=== PATIENT | female | born 1985 | race African-American/Black ===

== ENCOUNTER 2016-04-07 13:01 | Emergency (ER) | payer SELFPAY ==
--- NOTE | 2016-04-07 14:30 | ER Document Report ---
[id number] Ambulatory Information source: Patient Notes: 30 yr old female presents with complaitns of depression and suicidal ideation . pt notes that family member 1 month ago, since then she has been even more depressed. pt notes she wanted to take her zoloft today in a suicide attempt. pt denies any previous hx of suicidal ideations. TRAVEL OUTSIDE OF THE [place] IN LAST 30 DAYS: No - HPI Onset: Other Onset/Duration: Persistent Quality of pain: No pain Severity: Mild Pain Level: Denies Associated symptoms: None Exacerbated by: Denies Relieved by: Denies Similar symptoms previously: Yes Recently seen / treated by doctor: No - Related Data Allergies/Adverse Reactions: No Known Allergies Allergy (Verified 04/30/15 11:28) Past Medical History - Social History Smoking Status: Never Smoker Cigarette use (# per day): No Chew tobacco use (# tins/day): No Smoking Education Provided: No Family History: CVA, DM, Hyperlipidemia, Hypertension Patient has suicidal ideation: Yes Patient has homicidal ideation: No Renal/ Medical History: Reports: Hx Ovarian Cysts Past Surgical History: Reports: Hx Abdominal Surgery - Bowel Obstruction, Hx Gynecologic Surgery - Removal of right ovary and a tumor in 2009. - Immunizations Hx Diphtheria, Pertussis, Tetanus Vaccination: Yes Review of Systems - Review of Systems Notes: REVIEW OF SYSTEMS: CONSTITUTIONAL : Denies fever, chills, or sweats. Denies recent illness. EENT: Denies eye, ear, throat, or mouth pain or symptoms. Denies nasal or sinus congestion or discharge. Denies throat, tongue, or mouth swelling or difficulty swallowing. CARDIOVASCULAR: Denies chest pain. Denies palpitations or racing or irregular heart beat. Denies ankle edema. RESPIRATORY: Denies cough, cold, or chest congestion. Denies shortness of breath, difficulty breathing, or wheezing. GASTROINTESTINAL: Denies abdominal pain or distention. Denies nausea, vomiting , or diarrhea. Denies blood in vomitus, stools, or per rectum. Denies black, tarry stools. Denies constipation. GENITOURINARY: Denies difficulty urinating, painful urination, burning, frequency, blood in urine, or discharge. FEMALE GENITOURINARY: Denies vaginal bleeding, heavy or abnormal periods, irregular periods. Denies vaginal discharge or odor. MUSCULOSKELETAL: Denies back or neck pain or stiffness. Denies joint pain or swelling. SKIN: Denies rash, lesions or sores. HEMATOLOGIC : Denies easy bruising or bleeding. LYMPHATIC: Denies swollen, enlarged glands. NEUROLOGICAL: Denies confusion or altered mental status. Denies passing out or loss of consciousness. Denies dizziness or lightheadedness. Denies headache. Denies weakness or paralysis or loss of use of either side. Denies problems with gait or speech. Denies sensory loss, numbness, or tingling. Denies seizures. PSYCHIATRIC: admits t odepression ALL OTHER SYSTEMS REVIEWED AND NEGATIVE. Dictation was performed using [employer] voice recognition software PHYSICAL EXAMINATION: GENERAL: Well-appearing, well-nourished and in no acute distress. HEAD: Atraumatic, normocephalic. EYES: Pupils equal round and reactive to light, extraocular movements intact, conjunctiva are normal. ENT: Nares patent, oropharynx clear without exudates. Moist mucous membranes. NECK: Normal range of motion, supple without lymphadenopathy LUNGS: Breath sounds clear to auscultation bilaterally and equal. No wheezes rales or rhonchi. HEART: Regular rate and rhythm without murmurs ABDOMEN: Soft, nontender, nondistended abdomen. No guarding, no rebound. No masses appreciated. Female : deferred Musculoskeletal: Normal range of motion, no pitting or edema. No cyanosis. NEUROLOGICAL: Cranial nerves grossly intact. Normal speech, normal gait. Normal sensory, motor exams PSYCH: depressed tearful SKIN: Warm, Dry, normal turgor, no rashes or lesions noted. Physical Exam - Vital signs Vitals: Temp Pulse Resp BP Pulse Ox 98.5 F 72 14 118/86 H 99 04/07/16 13:15 04/07/16 13:15 04/07/16 13:15 04/07/16 13:15 04/07/16 13:15 Course - Re-evaluation Re-evalutation: 04/07/16 15:41 pt is medically stable but requires a mental health evaluation and care. pt is in no distress at this time and cleared medically. - Vital Signs Vital signs: Temp Pulse Resp BP Pulse Ox 98.5 F 72 14 118/86 H 99 04/07/16 13:15 04/07/16 13:15 04/07/16 13:15 04/07/16 13:15 04/07/16 13:15 - Laboratory Result Diagrams: 04/07/16 14:30 04/07/16 14:30 Laboratory results interpreted by me: 04/07/16 04/07/16 04/07/16 14:30 14:30 14:30 Hgb 11.5 L Hct 34.7 L MCH 26.9 L RDW 15.7 H Seg Neutrophils % 40.8 L Lymphocytes % 45.6 H Urine Ketones TRACE H Salicylates < 1.0 L Acetaminophen < 10 L - EKG Interpretation by Mi EKG shows normal: Sinus rhythm, [place], Intervals, QRS Complexes Discharge - Discharge Clinical Impression: Suicidal ideation Depression Qualifiers: Depression Type: unspecified Qualified Code(s): F32.9 - Major depressive disorder, single episode, unspecified Condition: Stable Disposition: PSYCH HOSP/UNIT
[2016-04-07 14:42] LABS: ABSOLUTE EOSINOPHILS # (AUTO) 0.1 10^3/uL (0.0-0.6); ABSOLUTE LYMPHOCYTES (AUTO) 2.2 10^3/uL (0.5-4.7); ABSOLUTE MONOCYTES (AUTO) 0.6 10^3/uL (0.1-1.4); EOSINOPHILS % (AUTO) 1.1 % (0-6); HEMATOCRIT 34.7 % (36.0-47.0); HEMOGLOBIN 11.5 g/dL (12.0-15.5); HGB HCT DIFFERENCE -0.2; LYMPHOCYTES % (AUTO) 45.6 % (13-45); MEAN CORPUSCULAR HEMOGLOBIN 26.9 pg (27.0-33.4); MEAN CORPUSCULAR HGB CONC 33.2 g/dL (32.0-36.0); MEAN CORPUSCULAR VOLUME 81 fl (80-97); MONOCYTES % (AUTO) 11.5 % (3-13); RED BLOOD COUNT 4.27 10^6/uL (3.72-5.28); RED CELL DISTRIBUTION WIDTH 15.7 % (11.5-14.0); SEGMENTED NEUTROPHILS % (AUTO) 40.8 % (42-78); WHITE BLOOD COUNT 4.9 10^3/uL (4.0-10.5)
--- NOTE | 2016-04-07 14:50 | PSYCHOLOGICAL NOTE ---
Psych Note - Psych Note Psych Note: Patient presented to [facility] ED with concerns of suicidal ideation. Patient states that she has been having depression for many years. She continued disclosed that she did receive therapeutic services in [place] however has never taken any medication. She continued to state that her depression started with start of all of her medical issues. She states that she has endometriosis has had multiple surgeries and is unable to have children. She continued disclosed that she is very embarrassed name and when she was worried upon arrival to the ED she was embarrassed by her weight because she's lost over 20 pounds. She is experiencing difficulty in sleeping she is not eating and increased irritability. Patient disclosed that her grandmother last month and that she was her "everything" pretty much "like her mother." She stated that she became very scared when people came up to her after the service and stated they were proud of her for not crying. She continue disclosed that she thought she was crying. Patient states that she "doesn't care if she doesn't wake up" and that she is discharging to think that her grandmother was "the jason one" because she is no longer here. She states that when she is in pain and feels much worse she doesn 't understand why she has to deal with the pain on top of everything else. Patient sister, Mark, disclosed concern for her sister stating that she has been very irritable and snapping at people over nothing. She states this is not like her sister. She continue disclosed that she wants to clinician to know everything so her sister can get the best possible care stating that the patient does "smoke every day;" clinician confirmed that meant patient smoked THC. She continue disclose concern that her sister does have to take pain medication because of all of her medical diagnosis and is hoping that she does not get any additional addictive medications because while her sister is not showing signs of abuse she does sometimes see her sister take more than she should because some which pain that she is in. She states that this is not often is only during her monthly cycle. Patient is alert and orientated to person place time and circumstance. Mood is dysphoric with tearful, flat affect. Patient endorses suicidal ideation denies homicidal ideation. Patient denies auditory and visual hallucinations; no delusions are noted. Thought process is logical organized and linear. Conversational speech was within normal rate tone and prosody. Eye contact was well maintained. Intellectual abilities appear to be within average range. Attention and concentration are good. Insight, judgment, impulse control are good. 293.83 (F06.32) Depressive Disorder Due To Another Medical Condition; With Major Depressive-like Episode V 62.82 (Z 60.4) Uncomplicated Bereavement Impression\\plan: Patient is recommended for psychiatric hold. Patient is demonstrating extreme despondent thought processes. Patient's previous support system has been lost due to the passing of her grandmother. Patient's insight judgment impulse control are good demonstrated by her seeking out assistance, patient is showing true suicidal ideation stating that she "doesn't care if she doesn't wake up" and thinks that her grandmother is "jason" because she is gone and doesn't have to deal with anything anymore. Patient's medical issues contribute to the patient's depression and the patient's bereavement as complicated it. At this time the patient is in agreement with staying overnight for psychiatric old to ensure mental health stability and to follow up with therapeutic services. Dr. Schulte was consulted on the care and management of this patient. Attending physician is in agreement with recommendations and disposition.
[2016-04-07 14:53] LABS: APPEARANCE,URINE CLEAR; BILIRUBIN,URINE NEGATIVE (NEGATIVE); GLUCOSE, URINE NEGATIVE (NEGATIVE); KETONES,URINE TRACE mg/dL (NEGATIVE); LEUKOCYTE ESTERASE,URINE NEGATIVE (NEGATIVE); NITRITE,URINE NEGATIVE (NEGATIVE); PROTEIN,URINE NEGATIVE (NEGATIVE); UROBILINOGEN,URINE NEGATIVE mg/dL (<2.0)
[2016-04-07 15:00] LABS: ALANINE AMINOTRANSFERASE 21 U/L (9-52); ALCOHOL < 10 mg/dL (NONE DETECTED); ALKALINE PHOSPHATASE 55 U/L (38-126); ANION GAP 13 (5-19); ASPARTATE AMINO TRANSFERASE 22 U/L (14-36); BILIRUBIN,TOTAL 0.5 mg/dL (0.2-1.3); BLOOD UREA NITROGEN 7 mg/dL (7-20); CALCIUM 9.7 mg/dL (8.4-10.2); CARBON DIOXIDE 24 mmol/L (22-30); CHLORIDE 105 mmol/L (98-107); CREATININE RESULT 0.68 mg/dL (0.52-1.25); GLUCOSE 86 mg/dL (75-110); POTASSIUM 4.3 mmol/L (3.6-5.0); SODIUM 141.8 mmol/L (137-145); TOTAL PROTEIN 7.8 g/dL (6.3-8.2)
[2016-04-07 15:04] LABS: URINE BARBITURATES SCREEN NEGATIVE; URINE METHADONE SCREEN NEGATIVE; URINE OPIATES LOW UNCONFIRMED POSITIVE; URINE PHENCYCLIDINE SCREEN NEGATIVE
--- NOTE | 2016-04-07 21:42 | EKG REPORT ---
SEVERITY:- OTHERWISE NORMAL ECG - SINUS ARRHYTHMIA, RATE 41-64 : Confirmed by: Anup Bullard 07-Apr-2016 21:42:03
[2016-04-07] MEDS ORDERED: BUSPIRONE HCL 10 MG TABLET PO SCH (22:00)
[2016-04-07] MEDS ORDERED: CITALOPRAM HYDROBROMIDE 20 MG TABLET PO SCH (22:00)
[2016-04-08] MEDS ORDERED: DIPHENHYDRAMINE HCL 25 MG CAPSULE ONE (05:32)
[2016-04-08] MEDS ORDERED: DIPHENHYDRAMINE HCL 50 MG CAPSULE PO ONE (06:27)
[2016-04-08 08:29] VITALS: BP 128/66
--- NOTE | 2016-04-09 17:30 | PSYCHOLOGICAL NOTE ---
Psych Note - Psych Note Psych Note: Clinician conducted check in with patient Patient presented to [facility] ED with concerns of suicidal ideation. Clinician conducted check in with patient patient states that she is feeling better and no longer is having suicidal ideation. Patient agrees to attend outpatient services. Patient discussed surjit with for safety knowing that her mother and sister are safety resources. Patient will be receiving outpatient services. Patient is alert and orientated to person place time and circumstance. Mood is euthymic with congruent affect. Patient denies suicidal and homicidal ideation. Patient denies auditory and visual hallucinations; no delusions are noted. Thought process is logical organized and linear. Conversational speech was within normal rate tone and prosody. Eye contact was well maintained. Intellectual abilities appear to be within average range. Attention and concentration are good. Insight, judgment, impulse control are good. 293.83 (F06.32) Depressive Disorder Due To Another Medical Condition; With Major Depressive-like Episode V 62.82 (Z 60.4) Uncomplicated Bereavement Impression\plan: Patient is psychiatrically cleared for discharge; patient denies current suicidal ideation. Patient lives with her sister and mother both have contracted to be patient's safety resource to ensure a she follows through with outpatient services. Patient is psychiatrically cleared for discharge. Dr. Schulte was consulted on the care and management of this patient. Attending physician is in agreement with recommendations and disposition.
== END 2016-04-08 08:05 ==
LOC: ER 13:01
DX: F32.9 Major depressive disorder, single episode, unspecified (principal); R45.851 Suicidal ideations; F06.32 Mood disorder due to known physiological condition with major depressive-like episode; Z60.4 Social exclusion and rejection
CPT/HCPCS: 36415; 80053; 80307; 81001; 84703; 85025; 93005; 93010; 99285

== ENCOUNTER 2016-04-13 12:46 | Emergency (ER) | payer SELFPAY ==
[2016-04-13 12:54] VITALS: BP 115/70
--- NOTE | 2016-04-13 13:32 | ER Document Report ---
ED Medical Screen (RME) - General Stated Complaint: MED REFILL Mode of Arrival: Ambulatory Information source: Patient Notes: Patient ran out of BuSpar and Celexa last night. Patient is requesting a refill. I have greeted and performed a rapid initial assessment of this patient. A comprehensive ED assessment and evaluation of the patient, analysis of test results and completion of the medical decision making process will be conducted by additional ED providers. TRAVEL OUTSIDE OF THE [place] IN LAST 30 DAYS: No - Related Data Allergies/Adverse Reactions: No Known Allergies Allergy (Verified 04/13/16 13:27) Past Medical History Renal/ Medical History: Reports: Hx Ovarian Cysts Past Surgical History: Reports: Hx Abdominal Surgery - Bowel Obstruction, Hx Gynecologic Surgery - Removal of right ovary and a tumor in 2009. - Immunizations Hx Diphtheria, Pertussis, Tetanus Vaccination: Yes Physical Exam - Vital signs Vitals: Temp Pulse Resp BP Pulse Ox 98.1 F 58 L 14 115/70 98 04/13/16 12:53 04/13/16 12:53 04/13/16 12:53 04/13/16 12:53 04/13/16 12:53 - General General appearance: Appears well, Alert In distress: None Course - Vital Signs Vital signs: Temp Pulse Resp BP Pulse Ox 98.1 F 58 L 14 115/70 98 04/13/16 12:53 04/13/16 12:53 04/13/16 12:53 04/13/16 12:53 04/13/16 12:53
--- NOTE | 2016-04-13 14:15 | ER Document Report ---
HPI - HPI Patient complains to provider of: medication refill Onset: This morning Onset/Duration: Sudden Quality of pain: No pain Pain Level: 0 Context: She presents to the emergency department with request for medication refill. Patient reports she was recently discharged from this hospital after suicide watch. She was prescribed BuSpar and Celexa. She was instructed to follow up with [facility]. She reports she did follow-up. [facility] did not have a provider that has evaluated her yet and has not prescribed her medications. She reports she has a class next Tuesday and then a provider will see her next . She is here for medication refill. Associated Symptoms: None Exacerbated by: Denies Relieved by: Denies Similar symptoms previously: Yes Recently seen / treated by doctor: Yes - REPRODUCTIVE LMP: 03/08/16 Reproductive: DENIES: : - DERM Skin Color: Normal Past Medical History - General Information source: Patient Last Menstrual Period: 03/08/16 - Social History Smoking Status: Current Every Day Smoker Cigarette use (# per day): Yes Frequency of alcohol use: None Drug Abuse: None Family History: CVA, DM, Hyperlipidemia, Hypertension Patient has suicidal ideation: No Patient has homicidal ideation: No Renal/ Medical History: Reports: Hx Ovarian Cysts. 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 - Immunizations Hx Diphtheria, Pertussis, Tetanus Vaccination: Yes Vertical Provider Document - CONSTITUTIONAL Agree With Documented VS: Yes Exam Limitations: No Limitations General Appearance: WD/WN, No Apparent Distress - calm denies SI/HI - INFECTION CONTROL TRAVEL OUTSIDE OF THE [place] IN LAST 30 DAYS: No - HEENT HEENT: Atraumatic, Normocephalic - NECK Neck: Normal Inspection, Supple - RESPIRATORY Respiratory: Breath Sounds Normal O2 Sat by Pulse Oximetry: 98 - CARDIOVASCULAR Cardiovascular: Regular Rate - MUSCULOSKELETAL/EXTREMETIES Musculoskeletal/Extremeties: EILEEN ROSENBERG - NEURO Level of Consciousness: Awake, Alert, Appropriate - DERM Integumentary: Warm, Dry Course - Re-evaluation Re-evalutation: 04/13/16 14:18 I contacted [facility] here and discuss the situation with Keyonna. She is contacting [facility] to confirm patient's story. 04/13/16 14:28 keyonna returned call, confirms process. medication refill completed - Vital Signs Vital signs: Temp Pulse Resp BP Pulse Ox 98.1 F 58 L 14 115/70 98 04/13/16 12:53 04/13/16 12:53 04/13/16 12:53 04/13/16 12:53 04/13/16 12:53 Discharge - Discharge Clinical Impression: Medication refill Condition: Stable Disposition: HOME, SELF-CARE Instructions: Anxiety ([facility]) Additional Instructions: *You have been evaluated for medication refill *Take medication as prescribed *Follow up with mental health as scheduled *Return to ED for worsening condition, changes, needs Prescriptions: Buspirone HCl [Buspar 10 mg Tablet] 10 mg PO QHS #5 tablet Citalopram Hydrobromide [Celexa 20 mg Tablet] 20 mg PO QHS #5 tablet
== END 2016-04-13 14:30 | disposition home or self-care (01) ==
LOC: ER 12:46
DX: Z76.0 Encounter for issue of repeat prescription (principal); F41.9 Anxiety disorder, unspecified; F17.210 Nicotine dependence, cigarettes, uncomplicated
CPT/HCPCS: 99281

== ENCOUNTER 2016-05-14 17:37 | Emergency (ER) | payer SELFPAY ==
--- NOTE | 2016-05-14 18:19 | ER Document Report ---
ED Medical Screen (RME) - General Stated Complaint: EAR PAIN Notes: Patient complains of left ear pain for the last 4-5 days. No nasal congestion. No fever. I have greeted and performed a rapid initial assessment of this patient. A comprehensive ED assessment and evaluation of the patient, analysis of test results and completion of the medical decision making process will be conducted by additional ED providers. TRAVEL OUTSIDE OF THE [place] IN LAST 30 DAYS: No - Related Data Allergies/Adverse Reactions: No Known Allergies Allergy (Verified 04/13/16 13:27) Past Medical History - Social History Chew tobacco use (# tins/day): No Frequency of alcohol use: None Drug Abuse: None Renal/ Medical History: Reports: Hx Ovarian Cysts. 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 - Immunizations Hx Diphtheria, Pertussis, Tetanus Vaccination: Yes Physical Exam - Vital signs Vitals: Temp Pulse Resp BP Pulse Ox 98.3 F 85 18 122/76 98 05/14/16 18:12 05/14/16 18:12 05/14/16 18:12 05/14/16 18:12 05/14/16 18:12 - Respiratory Respiratory status: No respiratory distress Breath sounds: Normal Course - Vital Signs Vital signs: Temp Pulse Resp BP Pulse Ox 98.3 F 85 18 122/76 98 05/14/16 18:12 05/14/16 18:12 05/14/16 18:12 05/14/16 18:12 05/14/16 18:12
--- NOTE | 2016-05-14 20:21 | ER Document Report ---
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 She heated a needle and popped it and now has a small ulceration. The pain radiates into the left side of her face. There is no fever. No history of MRSA. Associated Symptoms: None Exacerbated by: Denies Relieved by: Denies Similar symptoms previously: No Recently seen / treated by doctor: No - ROS ROS below otherwise negative: Yes Systems Reviewed and Negative: Yes All other systems reviewed and negative - REPRODUCTIVE Reproductive: DENIES: : - DERM Skin Color: Normal Past Medical History - General Information source: Patient - Social History Smoking Status: Current Some Day Smoker Chew tobacco use (# tins/day): No Frequency of alcohol use: None Drug Abuse: None Family History: CVA, DM, Hyperlipidemia, Hypertension - Medical History Medical History: Negative Renal/ Medical History: Reports: Hx Ovarian Cysts. 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 - Immunizations Hx Diphtheria, Pertussis, Tetanus Vaccination: Yes Vertical Provider Document - CONSTITUTIONAL Agree With Documented VS: Yes Exam Limitations: No Limitations - INFECTION CONTROL TRAVEL OUTSIDE OF THE [place] IN LAST 30 DAYS: No - HEENT HEENT: Normocephalic, PERRLA. negative: Conjuctival Injection Notes: left external ear with 2mm crusted lesion on the cymba cavity - NECK Neck: Supple. negative: Lymphadenopathy-Left, Lymphadenopathy-Right - RESPIRATORY O2 Sat by Pulse Oximetry: 98 - NEURO Level of Consciousness: Awake, Alert - DERM Integumentary: Warm, Dry Course - Vital Signs Vital signs: Temp Pulse Resp BP Pulse Ox 98.3 F 85 18 122/76 98 05/14/16 18:12 05/14/16 18:12 05/14/16 18:12 05/14/16 18:12 05/14/16 18:12 Discharge - Discharge Clinical Impression: Infection of left external ear Condition: Good Disposition: HOME, SELF-CARE Instructions: Infections ([facility]), Bactroban Ointment ([facility]), Trimethoprim-Sulfa ( [facility]) Additional Instructions: bactroban three times per day small amount the the left external ear to er if worse warm compress motrin for pain see high pressure cleaner if persists Please complete the patient satisfaction survey if you get one, and return it.. If you do not receive a survey, then you can go to the [facility] website, [email or web address] and place your comments about your very good care. Thank you very much. It was a pleasure being your medical provider today. Prescriptions: Ibuprofen [Motrin 600 mg Tablet] 600 mg PO Q8HP PRN #30 tablet PRN Reason: Sulfamethoxazole/Trimethoprim [Sulfamethoxazole-Tmp Ds Tablet] 1 each PO BID # 14 tablet Referrals: SHEY GUZMAN, [ACTIVE STAFF] - Follow up as needed
[2016-05-14] MEDS ORDERED: MUPIROCIN 2% OINTMENT 22 GM TP ONE (20:26)
[2016-05-14] MEDS ORDERED: SULFAMETHOXAZOLE/TRIMETHOPRIM 800-160 MG TABLET PO ONE (20:27)
[2016-05-14] MEDS ORDERED: IBUPROFEN 800 MG TABLET PO ONE (20:28)
[2016-05-14 21:05] VITALS: BP 130/74
== END 2016-05-14 21:02 | disposition home or self-care (01) ==
LOC: ER 17:37
DX: L98.499 Non-pressure chronic ulcer of skin of other sites with unspecified severity (principal); F17.200 Nicotine dependence, unspecified, uncomplicated; R51 Headache
CPT/HCPCS: 99282; J3490

== ENCOUNTER 2017-03-26 08:53 | Emergency (ER) | payer BC ==
[2017-03-26] MEDS ORDERED: ONDANSETRON 4 MG TAB.RAPDIS PO ONE (09:06)
--- NOTE | 2017-03-26 09:48 | ER Document Report ---
HPI - HPI Pain Level: 3 Notes: Patient is a 31-year-old female with no significant past medical history who presents to the ED complaining of nasal congestion/discharge, sore throat, dry nonproductive cough 2-3 days. Patient states that she does have some associated body aches without any fever. She has been taking some over-the- counter meds that do seem to help at times. Patient states that she is still eating and drinking without any difficulties. She is urinating normally and having normal bowel movements. Patient is ambulatory without any chest pains or dyspnea on exertion. No other concerns or complaints. Denies any drug allergies. Patient does admit to smoking but denies IV drug use. Denies any headache, fever, neck pain, chest pain, palpitations, syncope, shortness of breath, wheeze, dyspnea, abdominal pain, nausea/vomiting/diarrhea, urinary retention, dysuria, hematuria, or rash. - ROS Systems Reviewed and Negative: Yes All other systems reviewed and negative - CONSTITUTIONAL Constitutional: REPORTS: Chills - CARDIOVASCULAR Cardiovascular: REPORTS: Chest pain - RESPIRATORY Respiratory: REPORTS: Trouble Breathing, Coughing - REPRODUCTIVE Reproductive: DENIES: : Past Medical History - Social History Smoking Status: Current Some Day Smoker Chew tobacco use (# tins/day): No Frequency of alcohol use: None Family History: CVA, DM, Hyperlipidemia, Hypertension Patient has suicidal ideation: No Patient has homicidal ideation: No Renal/ Medical History: Reports: Hx Ovarian Cysts. 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 - Immunizations Hx Diphtheria, Pertussis, Tetanus Vaccination: Yes Vertical Provider Document - CONSTITUTIONAL Agree With Documented VS: Yes Notes: PHYSICAL EXAMINATION: GENERAL: Well-appearing, well-nourished and in no acute distress. A&Ox4. Answers questions appropriately. HEAD: Atraumatic, normocephalic. EYES: Pupils equal round and reactive to light, extraocular movements intact, sclera anicteric, conjunctiva are normal. ENT: EAC clear b/l. TM's intact b/l without erythema, fluid, or perforation. Nares patent and with clear discharge. oropharynx mild erythema without exudates. 1+ tonsilar hypertrophy with mild erythema no exudate. No palatine shift. Uvula midline. No tongue protrusion. No drooling, hoarseness, or airway compromise. Moist mucous membranes. No sinus tenderness. NECK: Normal range of motion, supple without lymphadenopathy. No rigidity/ meningismus. LUNGS: Breath sounds clear to auscultation bilaterally and equal. No wheezes rales or rhonchi. No retractions. HEART: Regular rate and rhythm without murmurs, rubs, gallops. ABDOMEN: Soft, nontender, nondistended abdomen. No guarding, no rebound. No masses appreciated. Normal bowel sounds present. No CVA tenderness bilaterally. No hepatosplenomegaly. NEUROLOGICAL: Normal speech, normal gait. Normal sensory, motor exams PSYCH: Normal mood, normal affect. SKIN: Warm, Dry, normal turgor, no rashes or lesions noted. - INFECTION CONTROL TRAVEL OUTSIDE OF THE U.S. IN LAST 30 DAYS: No - RESPIRATORY O2 Sat by Pulse Oximetry: 100 Course - Re-evaluation Re-evalutation: 03/26/17 11:19 Patient is an afebrile, well-hydrated, 31-year-old female who presents to the ED with acute URI, suspect viral. Patient still presents as an influenza pt even though there is a negative rapid influenza test. Reviewed risks/benefits of tamiflu and pt declined at this time. Rapid strep was negative with culture pending. No other labs or imaging warranted at this time based on H&P. Patient is actually 100% on room air and lungs are clear to auscultation bilaterally. She has no significant cardiopulmonary history. Low risk factors otherwise for high risk flu. Low suspicion for any meningitis, sepsis, peritonsillar/pharyngeal abscess, respiratory compromise, Jorden's, or other emergent systemic condition at this time. Patient is aware this condition can change from initial presentation and she needs to monitor symptoms closely. Conservative measures otherwise for symptoms. Recheck with your PCM in 3-5 days. Return to the ED with any worsening/concerning symptoms otherwise as reviewed in discharge. Patient is in agreement. - Vital Signs Vital signs: Temp Pulse Resp BP Pulse Ox 98.0 F 77 16 110/59 L 100 03/26/17 09:11 03/26/17 09:11 03/26/17 09:11 03/26/17 09:11 03/26/17 09:11 Discharge - Discharge Clinical Impression: Acute URI Condition: Stable Disposition: HOME, SELF-CARE Instructions: Upper Respiratory Illness ([facility]) Additional Instructions: Maintain adequate fluid intake Take meds as directed tylenol/ibuprofen as needed over the counter cold medication as needed for symptoms Humidified air may help F/u: with your PCM in 3-5 days for a recheck Return to the ED with any fever, worsening pain, chest pain, palpitations, syncope, worsening MCMANUS, neck pain/stiffness, shortness of breath, wheezing, drooling, trouble swallowing/breathing, abdominal pain, n/v/d, rash, or worsening/concerning symptoms otherwise. Forms: Return to Work Referrals: [facility] [Provider Group] - Follow up as needed [facility] [Provider Group] - Follow up as needed
[2017-03-26 10:50] LABS: A TYPE INFLUENZA AG NEGATIVE (NEGATIVE); B INFLUENZA AG NEGATIVE (NEGATIVE)
[2017-03-26 11:30] VITALS: BP 105/65
== END 2017-03-26 11:31 | disposition home or self-care (01) ==
LOC: ER 08:53
DX: J06.9 Acute upper respiratory infection, unspecified (principal); R09.81 Nasal congestion; R09.89 Other specified symptoms and signs involving the circulatory and respiratory systems; J02.9 Acute pharyngitis, unspecified; R05 Cough; F17.200 Nicotine dependence, unspecified, uncomplicated
CPT/HCPCS: 87070; 87804; 87880; 99283

== ENCOUNTER 2018-03-16 00:22 | Emergency (ER) | payer SELFPAY ==
--- NOTE | 2018-03-16 02:48 | ER Document Report ---
ED GI/ - General Chief Complaint: Vaginal Bleeding Stated Complaint: VOMITING Time Seen by Provider: 03/16/18 02:48 Mode of Arrival: Ambulatory Information source: Patient Notes: Patient is a 32-year-old female with a past medical history of endometriosis who presents with abdominal pain. Patient reports 1 month of continuous vaginal bleeding but denies vaginal discharge. Does not currently take oral contraceptives or any other hormone replacement. Onset: One month ago Provocation: Movement Quality: Cramping Radiation: None Severity: Moderate to severe Timing: Constant TRAVEL OUTSIDE OF THE [place] IN LAST 30 DAYS: No - HPI Sexual history: Active Associated symptoms: None Similar symptoms previously: No Recently seen / treated by doctor: No - Related Data Allergies/Adverse Reactions: cinnamon Allergy (Verified 03/26/17 08:59) Past Medical History - General Information source: Patient - Social History Smoking Status: Never Smoker Chew tobacco use (# tins/day): No Frequency of alcohol use: None Drug Abuse: None Lives with: Friend Family History: CVA, DM, Hyperlipidemia, Hypertension Patient has suicidal ideation: No Patient has homicidal ideation: No - Past Medical History Cardiac Medical History: Reports: None Pulmonary Medical History: Reports: None EENT Medical History: Reports: None Neurological Medical History: Reports: None Endocrine Medical History: Reports: None Renal/ Medical History: Reports: Hx Ovarian Cysts, Other. Denies: Hx Peritoneal Dialysis Malignancy Medical History: Reports: None GI Medical History: Reports: None Musculoskeletal Medical History: Reports None Skin Medical History: Reports None Psychiatric Medical History: Reports: Hx Anxiety Traumatic Medical History: Reports: None Infectious Medical History: Reports: None Past Surgical History: Reports: Hx Abdominal Surgery - Bowel Obstruction, Hx Gynecologic Surgery - Removal of right ovary and a tumor in 2009. - Immunizations Hx Diphtheria, Pertussis, Tetanus Vaccination: Yes Review of Systems - Review of Systems Notes: REVIEW OF SYSTEMS: CONSTITUTIONAL : Denies fever, chills, or sweats. Denies recent illness. EENT: Denies eye, ear, throat, or mouth pain or symptoms. Denies nasal or sinus congestion. CARDIOVASCULAR: Denies chest pain. RESPIRATORY: Denies cough, cold, or chest congestion. Denies shortness of breath, difficulty breathing, or wheezing. GASTROINTESTINAL: Denies abdominal pain. Denies nausea, vomiting, or diarrhea. Denies constipation. Last BM: GENITOURINARY: Denies difficulty urinating, painful urination, burning, frequency, or blood in urine. FEMALE GENITOURINARY: Denies vaginal discharge. Currently on her menstrual cycle. MUSCULOSKELETAL: Denies neck or back pain or joint pain or swelling. SKIN: Denies rash or skin lesions. HEMATOLOGIC : Denies easy bruising or bleeding. LYMPHATIC: Denies swollen, enlarged glands. NEUROLOGICAL: Denies altered mental status or loss of consciousness. Denies headache. Denies weakness or paralysis or loss of use of either side. Denies problems with gait or speech. Denies sensory or motor loss. PSYCHIATRIC: Denies anxiety or stress or depression. ALL OTHER SYSTEMS REVIEWED AND NEGATIVE. -: Yes All other systems reviewed and negative Physical Exam - Vital signs Vitals: Temp Pulse Resp BP Pulse Ox 98.2 F 71 18 112/88 H 100 03/16/18 01:11 03/16/18 01:11 03/16/18 01:11 03/16/18 01:11 03/16/18 01:11 - Notes Notes: PHYSICAL EXAMINATION: GENERAL: Well-appearing, well-nourished and in no acute distress. HEAD: Atraumatic, normocephalic. EYES: Pupils equal round and reactive to light, extraocular movements intact, sclera anicteric, conjunctiva are normal. ENT: nares patent, oropharynx clear without exudates. Moist mucous membranes. NECK: Normal range of motion, supple without lymphadenopathy LUNGS: Breath sounds clear to auscultation bilaterally and equal. No wheezes rales or rhonchi. HEART: Regular rate and rhythm without murmurs ABDOMEN: Soft, mild suprapubic and pelvic tenderness, normoactive bowel sounds. No guarding, no rebound. No masses appreciated. Pelvic: Deferred. EXTREMITIES: Normal range of motion, no pitting or edema. No cyanosis. NEUROLOGICAL: No focal neurological deficits. Moves all extremities spontaneously and on command. PSYCH: Normal mood, normal affect. SKIN: Warm, Dry, normal turgor, no rashes or lesions noted. Course - Re-evaluation Re-evalutation: 03/16/18 06:06 Basically labs show mild anemia otherwise unremarkable. Patient is not . CT scan is negative for acute pathology. Patient will need to follow-up with her DRUM TESTER. She was provided with oral Provera and will be discharged home with return precautions and follow-up. Patient voices understanding and agreeing with the plan. - Vital Signs Vital signs: Temp Pulse Resp BP Pulse Ox 98.2 F 71 18 112/88 H 100 03/16/18 01:11 03/16/18 01:11 03/16/18 01:11 03/16/18 01:11 03/16/18 01:11 - Laboratory Result Diagrams: 03/16/18 02:41 03/16/18 02:41 Laboratory results interpreted by me: 03/16/18 03/16/18 02:41 02:41 Hgb 9.3 L Hct 30.0 L MCV 68 L MCH 21.3 L MCHC 31.2 L RDW 18.0 H Seg Neutrophils % 34.9 L Lymphocytes % 52.5 H Total Protein 8.3 H Albumin 5.1 H - Diagnostic Test Radiology reviewed: Image reviewed, Reports reviewed - EKG Interpretation by Me EKG shows normal: Sinus rhythm Rate: Normal Rhythm: NSR [place]/QRS: No: Right axis deviation, Left axis deviation, RBBB, LBBB, IVCD, LAHB/LAFB, LPHB/LPFB, Bifasicular block Voltage: No: Increased voltage, Consistant with LVH, Decreased voltage, Throughout, Limb leads Heart block present: No: 1st Degree, Mobitz 1, Mobitz 2, CHB (3rd degree block) When compared to previous EKG there are: No significant change Discharge - Discharge Clinical Impression: Dysfunctional uterine bleeding Condition: Good Disposition: HOME, SELF-CARE Instructions: Dysfunctional Uterine Bleeding ([facility]) Additional Instructions: You have been evaluated in the Emergency Department for abdominal pain and vaginal bleeding. Please follow-up with your can crimper as instructed in 1 week. Return to the Emergency Department if you experience weakness, lightheadedness, episodes of passing out, shortness of breath, or any other concerning symptoms. Prescriptions: Iron,Carb/Vit C/Vit B12/Folic [Iron 100 Plus Tablet] 1 each PO DAILY #30 tablet Medroxyprogesterone Acet [Provera 10 Mg Tablet] 10 mg PO DAILY #30 tablet Tramadol HCl [Ultram 50 mg Tablet] 50 mg PO Q6H PRN #30 tab PRN Reason: For Pain Referrals: JOHN STAHL MD [ACTIVE STAFF] - Follow up as needed Print Language: Moldovan
[2018-03-16] MEDS ORDERED: ONDANSETRON HCL INJ/PF 4 MG/2 ML SDV IV ONE (02:51)
[2018-03-16] MEDS ORDERED: MORPHINE SULFATE 10 MG/ML INJ IV ONE (02:53)
[2018-03-16] MEDS ORDERED: NORMAL SALINE 1000 ML 1,000 ML IV ONE (03:03)
[2018-03-16 03:46] LABS: PROTHROMBIN TIME 12.6 SEC (11.4-15.4)
[2018-03-16 03:47] LABS: ABSOLUTE BASOPHILS # (AUTO) 0.1 10^3/uL (0.0-0.2); ABSOLUTE EOSINOPHILS # (AUTO) 0.1 10^3/uL (0.0-0.6); ABSOLUTE LYMPHOCYTES (AUTO) 2.6 10^3/uL (0.5-4.7); ABSOLUTE MONOCYTES (AUTO) 0.5 10^3/uL (0.1-1.4); ABSOLUTE NEUT (AUTO) 1.8 10^3/uL (1.7-8.2); BASOPHILS % (AUTO) 1.4 % (0-2); EOSINOPHILS % (AUTO) 2.2 % (0-6); HEMOGLOBIN 9.3 g/dL (12.0-15.5); LYMPHOCYTES % (AUTO) 52.5 % (13-45); MEAN CORPUSCULAR HEMOGLOBIN 21.3 pg (27.0-33.4); MEAN CORPUSCULAR HGB CONC 31.2 g/dL (32.0-36.0); MEAN CORPUSCULAR VOLUME 68 fl (80-97); PLATELET COUNT 235 10^3/uL (150-450); RED BLOOD COUNT 4.39 10^6/uL (3.72-5.28); SEGMENTED NEUTROPHILS % (AUTO) 34.9 % (42-78); TOTAL CELLS COUNTED % (AUTO) 100 %
[2018-03-16 03:52] LABS: ALANINE AMINOTRANSFERASE 12 U/L (9-52); ALBUMIN 5.1 g/dL (3.5-5.0); ALKALINE PHOSPHATASE 81 U/L (38-126); ANION GAP 11 (5-19); ASPARTATE AMINO TRANSFERASE 27 U/L (14-36); BILIRUBIN,DIRECT 0.2 mg/dL (0.0-0.4); BILIRUBIN,TOTAL 0.2 mg/dL (0.2-1.3); BLOOD UREA NITROGEN 8 mg/dL (7-20); CALCIUM 9.9 mg/dL (8.4-10.2); CARBON DIOXIDE 24 mmol/L (22-30); CHLORIDE 107 mmol/L (98-107); GLUCOSE 90 mg/dL (75-110); POTASSIUM 4.5 mmol/L (3.6-5.0); SODIUM 141.9 mmol/L (137-145); TOTAL PROTEIN 8.3 g/dL (6.3-8.2)
--- NOTE | 2018-03-16 04:01 | RADIOLOGY REPORT (SQ) ---
EXAM DESCRIPTION: CT ABDOMEN PELVIS WITHOUT IV CONTRAST COMPLETED DATE/TME: 03/16/2018 03:27 CLINICAL HISTORY: 32 years, Female, Abdominal pain COMPARISON: 04/09/2015 CT TECHNIQUE: 298 Images stored on PACS. All CT scanners at this facility use dose modulation, iterative reconstruction, and/or weight based dosing when appropriate to reduce radiation dose to as low as reasonably achievable (ALARA). [facility]: Dose Right [facility]: CareDose [facility]: Dose Right [facility]: Teradose 4D [facility]: [employer] LIMITATIONS: None. FINDINGS: Limited evaluation of the lung bases show scarring in each lung base. Osseous structures are grossly intact. The visualized liver, spleen, adrenal glands, pancreas, kidneys are unremarkable. The gallbladder is present. Normal appendix. No gross evidence for bowel obstruction. Abundant stool in the colon. Probable follicular change to the ovaries bilaterally. No free air or free fluid. IMPRESSION: Abundant stool in the colon. Negative for acute intra-abdominal/pelvic process. TECHNICAL DOCUMENTATION: Quality ID # [id number]: Final reports with documentation of one or more dose reduction techniques (e.g., Automated exposure control, adjustment of the mA and/or kV according to patient size, use of iterative reconstruction technique) copyright 2010 [employer]- All Rights Reserved
[2018-03-16 04:53] LABS: APPEARANCE,URINE SLIGHTLY-CLOUDY; BILIRUBIN,URINE NEGATIVE (NEGATIVE); COLOR,URINE YELLOW; GLUCOSE, URINE NEGATIVE (NEGATIVE); KETONES,URINE NEGATIVE (NEGATIVE); LEUKOCYTE ESTERASE,URINE NEGATIVE (NEGATIVE); NITRITE,URINE NEGATIVE (NEGATIVE); PROTEIN,URINE NEGATIVE (NEGATIVE); UROBILINOGEN,URINE NEGATIVE mg/dL (<2.0)
[2018-03-16] MEDS ORDERED: TRAMADOL HCL 50 MG TABLET PO ONE (05:24)
[2018-03-16] MEDS ORDERED: MEDROXYPROGESTERONE ACET 10 MG TABLET PO ONE (05:24)
[2018-03-16 06:57] VITALS: BP 126/81
--- NOTE | 2018-03-16 08:05 | EKG REPORT ---
SEVERITY:- NORMAL ECG - SINUS RHYTHM : Confirmed by: Mckenna Francois MD 16-Mar-2018 08:04:27
== END 2018-03-16 06:56 | disposition home or self-care (01) ==
LOC: ER 00:22
DX: N93.8 Other specified abnormal uterine and vaginal bleeding (principal); R11.10 Vomiting, unspecified
CPT/HCPCS: 93005; 99284; 96361; 96374; 96375; 36415; 84702; 85025; 85610; 80053; 81001; 74176; 93010; J3490; J2270; J2405; J7030

== ENCOUNTER 2018-05-20 07:55 | Emergency (ER) | payer SELFPAY ==
[2018-05-20] MEDS ORDERED: MORPHINE SULFATE 10 MG/ML INJ IV ONE ×2 (08:38→10:14)
[2018-05-20] MEDS ORDERED: NORMAL SALINE 1000 ML 1,000 ML IV ONE (08:38)
[2018-05-20] MEDS ORDERED: ONDANSETRON HCL INJ/PF 4 MG/2 ML SDV IV ONE (08:38)
--- NOTE | 2018-05-20 08:39 | ER Document Report ---
ED GI/ - General Chief Complaint: Vaginal Bleeding Stated Complaint: VAGINAL BLEEDING Time Seen by Provider: 05/20/18 08:21 Primary Care Provider: [facility] [Outside] - Follow up as needed Mode of Arrival: Ambulatory Information source: Patient Notes: Patient is a 32-year-old female who presents the emergency department with complaint of vaginal bleeding and low abdominal cramping. Patient reports she has had vaginal bleeding ongoing since 04/23/18. She reports the bleeding tapered off and then returned very severe and heavy. Patient reports severe low abdominal cramping with vomiting this morning. 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 She also states she had to have surgery for bowel obstruction. Patient denies any fevers, dysuria or urinary frequency. TRAVEL OUTSIDE OF THE [place] IN LAST 30 DAYS: No - Related Data Allergies/Adverse Reactions: cinnamon Allergy (Verified 05/20/18 07:57) Past Medical History - General Information source: Patient - Social History Smoking Status: Current Every Day Smoker Chew tobacco use (# tins/day): No Frequency of alcohol use: None Drug Abuse: None Family History: CVA, DM, Hyperlipidemia, Hypertension Patient has suicidal ideation: No Patient has homicidal ideation: No Renal/ Medical History: Reports: Hx Ovarian Cysts, Other - Endometriosis. 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 - Immunizations Hx Diphtheria, Pertussis, Tetanus Vaccination: Yes Review of Systems - Review of Systems Constitutional: No symptoms reported EENT: No symptoms reported Cardiovascular: No symptoms reported Respiratory: No symptoms reported Gastrointestinal: Abdominal pain - Left lower quadrant Genitourinary: No symptoms reported. denies: Dysuria, Frequency, Flank pain Female Genitourinary: Heavy/abnormal periods, Vaginal bleeding. denies: Vaginal discharge Musculoskeletal: No symptoms reported Skin: No symptoms reported Hematologic/Lymphatic: No symptoms reported Neurological/Psychological: No symptoms reported Physical Exam - Vital signs Vitals: Temp Pulse Resp BP Pulse Ox 98.3 F 85 16 120/77 100 05/20/18 08:00 05/20/18 08:00 05/20/18 08:00 05/20/18 08:00 05/20/18 08:00 - Notes Notes: PHYSICAL EXAMINATION: GENERAL: Well-appearing, well-nourished and in no acute distress. HEAD: Atraumatic, normocephalic. EYES: Pupils equal round and reactive to light, extraocular movements intact, conjunctiva are normal. ENT: Nares patent, oropharynx clear without exudates. Moist mucous membranes. NECK: Normal range of motion, supple without lymphadenopathy LUNGS: Breath sounds clear to auscultation bilaterally and equal. No wheezes rales or rhonchi. HEART: Regular rate and rhythm without murmurs ABDOMEN: Soft, nondistended abdomen. Tenderness to palpation to left lower quadrant. No guarding, no rebound. No masses appreciated. Female : External genitalia unremarkable. Vaginal speculum exam reveals moderate amount of active bleeding, there is a blood clot at the cervical opening, this was removed. No cervical motion tenderness, left adnexal tenderness. Musculoskeletal: Normal range of motion, no pitting or edema. No cyanosis. NEUROLOGICAL: Cranial nerves grossly intact. Normal speech, normal gait. Normal sensory, motor exams PSYCH: Normal mood, normal affect. SKIN: Warm, Dry, normal turgor, no rashes or lesions noted. Course - Re-evaluation Re-evalutation: CBC is unremarkable. Comprehensive metabolic panel is unremarkable. Urinalysis shows large blood, negative nitrates, negative leukocyte esterase. There are white blood cells noted, urine culture will be ordered. Patient does not have any symptoms of urinary tract infection and this was a clean-catch specimen so we will not start patient on antibiotics at this time. Transvaginal ultrasound shows a large hemorrhagic cyst on the left ovary. Patient reports improvement of her pain after administration of pain medications here in the emergency department. She has not had any episodes of vomiting. Will discharge patient home with prescriptions for pain medication as well as a prescription for Provera for 7 days to hopefully stop her vaginal bleeding. She does not have insurance and does not have WINERY WORKER follow-up, [facility] so that she can establish primary care. Strict ED return precautions were discussed with patient, she verbalizes understanding of same. - Vital Signs Vital signs: Temp Pulse Resp BP Pulse Ox 98.0 F 69 16 128/74 H 100 05/20/18 12:05/20/18 12:05/20/18 12:05/20/18 12:05/20/18 12:01 - Laboratory Result Diagrams: 05/20/18 08:43 05/20/18 08:43 Laboratory results interpreted by me: 05/20/18 05/20/18 05/20/18 08:43 08:43 08:43 Hgb 10.1 L Hct 32.3 L MCV 67 L MCH 20.8 L MCHC 31.2 L RDW 18.6 H Calcium 10.6 H Total Protein 9.3 H Albumin 5.2 H Urine Protein 100 H Urine Blood LARGE H Discharge - Discharge Clinical Impression: Hemorrhagic cyst of left ovary Condition: Stable Disposition: HOME, SELF-CARE Additional Instructions: Ovarian Cyst Your examination shows the presence of an ovarian cyst. This is a ball of fluid attached to the ovary. Ovarian cysts in women of child-bearing age are usually innocent. However, the cyst may cause pain when it grows or bursts. An innocent ovarian cyst will usually go away by itself. When the cyst becomes painful, you should rest. Pain medication may be required. Some women find a hot water bottle soothing. The pain usually resolves within one or two days. After menopause, an ovarian cyst may mean a tumor, and requires more aggressive evaluation -- usually surgery is recommended to remove or biopsy the cyst. A very large cyst requires evaluation at any age. Most cysts (even the innocent ones) require follow-up examination. Call the doctor or return at any time if the pain increases significantly, if you become faint, or if you experience vaginal bleeding. The ultrasound shows that there is a hemorrhagic or bleeding cyst on your left ovary. This is likely what is causing the pain and vaginal bleeding. All of your other testing was normal today. Please take ibuprofen 600 mg every 6 hours for pain and cramping. Use the narcotic pain medication for severe pain only. I have enclosed the number and contact information for the [facility]. This is a free clinic that is associated with the hospital. I would call them Tuesday morning and try to set up an appointment. They may be able to help get you aligned up with WINERY WORKER follow-up. In the meantime return to the emergency department if you experience worsening bleeding such as bleeding through more than 1 pad per hour for 4 hours consecutively, you pass out or becomes faint or any other symptom that is concerning to you. Prescriptions: Hydrocodone Bit/Acetaminophen [Hydrocodon-Acetaminophen 5-325] 1 each PO Q6H #15 tablet Medroxyprogesterone Acet [Provera 10 Mg Tablet] 10 mg PO DAILY #7 tablet Referrals: [facility] [Outside] - Follow up as needed
[2018-05-20 09:02] LABS: ABSOLUTE BASOPHILS # (AUTO) 0.1 10^3/uL (0.0-0.2); ABSOLUTE EOSINOPHILS # (AUTO) 0.1 10^3/uL (0.0-0.6); ABSOLUTE LYMPHOCYTES (AUTO) 1.9 10^3/uL (0.5-4.7); ABSOLUTE MONOCYTES (AUTO) 0.6 10^3/uL (0.1-1.4); ABSOLUTE NEUT (AUTO) 5.4 10^3/uL (1.7-8.2); BASOPHILS % (AUTO) 0.7 % (0-2); EOSINOPHILS % (AUTO) 0.8 % (0-6); HEMATOCRIT 32.3 % (36.0-47.0); HEMOGLOBIN 10.1 g/dL (12.0-15.5); LYMPHOCYTES % (AUTO) 24.1 % (13-45); MEAN CORPUSCULAR HEMOGLOBIN 20.8 pg (27.0-33.4); MEAN CORPUSCULAR HGB CONC 31.2 g/dL (32.0-36.0); MEAN CORPUSCULAR VOLUME 67 fl (80-97); MONOCYTES % (AUTO) 7.3 % (3-13); PLATELET COUNT 222 10^3/uL (150-450); RED BLOOD COUNT 4.84 10^6/uL (3.72-5.28); RED CELL DISTRIBUTION WIDTH 18.6 % (11.5-14.0); SEGMENTED NEUTROPHILS % (AUTO) 67.1 % (42-78); TOTAL CELLS COUNTED % (AUTO) 100 %; WHITE BLOOD COUNT 8.1 10^3/uL (4.0-10.5)
[2018-05-20 09:15] LABS: ALANINE AMINOTRANSFERASE 17 U/L (9-52); ALBUMIN 5.2 g/dL (3.5-5.0); ALKALINE PHOSPHATASE 68 U/L (38-126); ANION GAP 13 (5-19); ASPARTATE AMINO TRANSFERASE 25 U/L (14-36); BILIRUBIN,DIRECT 0.2 mg/dL (0.0-0.4); BILIRUBIN,TOTAL 0.2 mg/dL (0.2-1.3); BLOOD UREA NITROGEN 9 mg/dL (7-20); CALCIUM 10.6 mg/dL (8.4-10.2); CARBON DIOXIDE 25 mmol/L (22-30); CHLORIDE 104 mmol/L (98-107); GLUCOSE 90 mg/dL (75-110); POTASSIUM 4.3 mmol/L (3.6-5.0); SODIUM 142.2 mmol/L (137-145); TOTAL PROTEIN 9.3 g/dL (6.3-8.2)
[2018-05-20 09:20] LABS: APPEARANCE,URINE CLOUDY; BILIRUBIN,URINE NEGATIVE (NEGATIVE); GLUCOSE, URINE NEGATIVE (NEGATIVE); KETONES,URINE NEGATIVE (NEGATIVE); LEUKOCYTE ESTERASE,URINE NEGATIVE (NEGATIVE); NITRITE,URINE NEGATIVE (NEGATIVE); PROTEIN,URINE 100 mg/dL (NEGATIVE); URINE SPECIFIC GRAVITY 1.011; UROBILINOGEN,URINE NEGATIVE mg/dL (<2.0)
[2018-05-20 09:22] LABS: COLOR,URINE PINK
--- NOTE | 2018-05-20 09:56 | RADIOLOGY REPORT (SQ) ---
EXAM DESCRIPTION: U/S NON OB PEL TV W/DOPPLER COMPLETED DATE/TIME: 05/20/2018 9:43 am REASON FOR STUDY: vag bleeding, severe cramping COMPARISON: CT abdomen pelvis 03/16/2018 Pelvic ultrasound 02/18/2016, 04/30/2015 TECHNIQUE: Dynamic and static grayscale images acquired of the pelvis via transvaginal approach and recorded on PACS. Additional selected color Doppler and spectral images recorded. Urine HCG negative LIMITATIONS: None. FINDINGS: UTERUS: Contour normal. No mass. Uterus is 7 x 5 x 4 cm in size. ENDOMETRIAL STRIPE: No focal or generalized thickening. No masses. Endometrium 6 mm in thickness wit h increased echogenicity likely from prior ablation CERVIX: 2 cm in length, with echogenic debris in the endocervical canal RIGHT OVARY AND DOPPLER: Surgically absent LEFT OVARY AND DOPPLER: Upper limits of normal for size, 5 x 5 x 4.5 cm in size. There are multiple cysts, the largest is 3.4 x 3.1 cm with low level internal echoes likely a hemorrhagic cyst. Small a mount of left adnexal free fluid. Normal arterial vascular flow without evidence for torsion. FREE FLUID: Small amount of left adnexal free fluid. OTHER: Report discussed with Edna Soto in the emergency room, 0945 hours 05/20/2018 IMPRESSION: Post right oophorectomy Enlarged left ovary with several cysts, the largest is a hemorrhagic cyst 3.4 x 3.1 cm in size. No D oppler evidence for left ovary torsion. Small amount of left adnexal free fluid. Echogenic endometrium from prior ablation. There is blood clot in the cervix. TECHNICAL DOCUMENTATION: JOB ID: [id number]- All Rights Reserved Rev-07/08 Reading location - IP/workstation name: [email or web address]
[2018-05-20 10:42] LABS: EPITHELIALS (WET MOUNT) 3+ EPITHELIALS SEEN; RBCS (WET MOUNT) 4+ RBCS SEEN; T.VAGINALIS (WET MOUNT) NO TRICHOMONAS SEEN; WBCS (WET MOUNT) RARE WBCS SEEN; YEAST (WET MOUNT) NO YEAST SEEN
[2018-05-20 12:02] VITALS: BP 128/74
== END 2018-05-20 12:01 | disposition home or self-care (01) ==
LOC: ER 07:55
DX: N83.202 Unspecified ovarian cyst, left side (principal); N93.8 Other specified abnormal uterine and vaginal bleeding; R10.30 Lower abdominal pain, unspecified; F17.200 Nicotine dependence, unspecified, uncomplicated
CPT/HCPCS: 96376; 99284; 96361; 96374; 96375; 36415; 87210; 85025; 81025; 80053; 81001; 76830; 93976; J2270; J2405; J7030

== ENCOUNTER 2018-09-07 16:45 | Emergency (ER) | payer SELFPAY ==
[2018-09-07] MEDS ORDERED: KETOROLAC TROMETHAMINE INJ/PF 30 MG/1 ML SDV IM ONE (18:30)
[2018-09-07] MEDS ORDERED: ONDANSETRON 4 MG TAB.RAPDIS PO ONE (18:30)
--- NOTE | 2018-09-07 18:30 | ER Document Report ---
ED Medical Screen (RME) - General Chief Complaint: Abdominal Pain Stated Complaint: ABDOMINAL PAIN,LOW BACK PAIN Time Seen by Provider: 09/07/18 18:22 TRAVEL OUTSIDE OF THE [place] IN LAST 30 DAYS: No - HPI Notes: 09/07/18 18:28 Patient is a 33-year-old female with a history of endometriosis and right oophorectomy who presents complaining of left lower pelvic pain that is burning with intermittent sharp pains that began last evening. Patient states that she has been nauseated without any vomiting. She states that the pain will occasionally feel like it radiates straight through to her back. She has not noticed any vaginal discharge, odor, or bleeding. Denies . Denies MCMANUS, fever, neck pain, URI, CP, SOB, dysuria, or rash. I have treated and performed a rapid initial assessment of this patient. A comprehensive ED assessment and evaluation of the patient, analysis of test results and completion of medical decision making process will be conducted by additional ED providers. PHYSICAL EXAMINATION: GENERAL: Well-appearing, well-nourished and in no acute distress. A&Ox4. Answers questions appropriately. LUNGS: Breath sounds clear to auscultation bilaterally and equal. No wheezes rales or rhonchi. HEART: Regular rate and rhythm without murmurs, rubs, gallops. ABDOMEN: Soft, nondistended abdomen. No guarding, no rebound. Normal bowel sounds present. No CVA tenderness bilaterally. + Left lower pelvic/abdominal tenderness (cannot elicit thorough abd exam w/o bed, however). - Related Data Allergies/Adverse Reactions: cinnamon Allergy (Verified 09/07/18 16:48) Past Medical History - Social History Chew tobacco use (# tins/day): No Frequency of alcohol use: None Drug Abuse: None Renal/ Medical History: Reports: Hx Ovarian Cysts. 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 - Immunizations Hx Diphtheria, Pertussis, Tetanus Vaccination: Yes Physical Exam - Vital signs Vitals: Temp Pulse Resp BP Pulse Ox 98.9 F 86 20 124/62 100 09/07/18 17:03 09/07/18 17:03 09/07/18 17:03 09/07/18 17:03 09/07/18 17:03 Course - Vital Signs Vital signs: Temp Pulse Resp BP Pulse Ox 98.9 F 86 20 124/62 100 09/07/18 17:03 09/07/18 17:03 09/07/18 17:03 09/07/18 17:03 09/07/18 17:03
[2018-09-07 19:38] LABS: ABSOLUTE BASOPHILS # (AUTO) 0.1 10^3/uL (0.0-0.2); ABSOLUTE EOSINOPHILS # (AUTO) 0.1 10^3/uL (0.0-0.6); ABSOLUTE MONOCYTES (AUTO) 0.6 10^3/uL (0.1-1.4); BASOPHILS % (AUTO) 1.2 % (0-2); EOSINOPHILS % (AUTO) 2.3 % (0-6); HEMATOCRIT 25.3 % (36.0-47.0); LYMPHOCYTES % (AUTO) 42.6 % (13-45); MEAN CORPUSCULAR HEMOGLOBIN 19.1 pg (27.0-33.4); MEAN CORPUSCULAR HGB CONC 30.4 g/dL (32.0-36.0); MONOCYTES % (AUTO) 11.7 % (3-13); PLATELET COUNT 180 10^3/uL (150-450); RED BLOOD COUNT 4.04 10^6/uL (3.72-5.28); RED CELL DISTRIBUTION WIDTH 18.1 % (11.5-14.0); SEGMENTED NEUTROPHILS % (AUTO) 42.2 % (42-78); TOTAL CELLS COUNTED % (AUTO) 100 %; WHITE BLOOD COUNT 4.8 10^3/uL (4.0-10.5)
[2018-09-07 19:42] LABS: HEMOGLOBIN 7.7 g/dL (12.0-15.5); MEAN CORPUSCULAR VOLUME 63 fl (80-97)
[2018-09-07 19:52] LABS: ALANINE AMINOTRANSFERASE 19 U/L (9-52); ALBUMIN 4.7 g/dL (3.5-5.0); ALKALINE PHOSPHATASE 56 U/L (38-126); ANION GAP 9 (5-19); ASPARTATE AMINO TRANSFERASE 25 U/L (14-36); BILIRUBIN,DIRECT 0.2 mg/dL (0.0-0.4); BILIRUBIN,TOTAL 0.2 mg/dL (0.2-1.3); BLOOD UREA NITROGEN 9 mg/dL (7-20); CALCIUM 9.5 mg/dL (8.4-10.2); CARBON DIOXIDE 22 mmol/L (22-30); CHLORIDE 106 mmol/L (98-107); GLUCOSE 84 mg/dL (75-110); POTASSIUM 4.3 mmol/L (3.6-5.0); SODIUM 137.3 mmol/L (137-145); TOTAL PROTEIN 7.5 g/dL (6.3-8.2)
[2018-09-07 20:04] LABS: ANISOCYTOSIS 2+; BURR CELLS SLIGHT; HYPOCHROMASIA 2+; POIKILOCYTOSIS SLIGHT; POLYCHROMASIA 1+; TARGET CELLS 2+
[2018-09-07 20:05] LABS: PLATELET COMMENT ADEQUATE
[2018-09-07 21:10] LABS: APPEARANCE,URINE CLEAR; BILIRUBIN,URINE NEGATIVE (NEGATIVE); COLOR,URINE STRAW; GLUCOSE, URINE NEGATIVE (NEGATIVE); KETONES,URINE NEGATIVE (NEGATIVE); LEUKOCYTE ESTERASE,URINE TRACE (NEGATIVE); NITRITE,URINE NEGATIVE (NEGATIVE); PROTEIN,URINE NEGATIVE (NEGATIVE); URINE SPECIFIC GRAVITY 1.008; UROBILINOGEN,URINE NEGATIVE mg/dL (<2.0)
--- NOTE | 2018-09-07 21:13 | RADIOLOGY REPORT (SQ) ---
EXAM DESCRIPTION: CLINICAL HISTORY: 33 years Female, Lt lower pelvic pain COMPARISON: Ultrasound from 05/20/2018. CT abdomen pelvis 03/16/2018. FINDINGS: Normal size uterus. 84 x 69 x 47 mm. Suspected two small peripheral fibroids. 12 x 14 x 11 mm and 17 x 15 x 12 mm. There is focal thickening of the endometrium up to 18 mm. Was not described previously. Previous CT demonstrated a retroverted anteflexed uterus. Right ovary removed. Enlarged left adnexa. Measures 98 x 96 x 19 mm. Contains several large complex cysts with multiple septations. Measurement of the left ovary on ultrasound from 05/20/2018 was 5 x 5 x 4.5 cm. No obvious free fluid. IMPRESSION: 1. Suspected incidental small fibroids. Nonspecific finding of focal thickening of the endometrium. 2. Right ovary removed. Large lesion in the left adnexa increase in size compared to previous ultrasound. Extensive endometriosis? More aggressive lesion? Suggest correlation with cause of the previous right oophorectomy. Consider MRI of the pelvis for further evaluation.
[2018-09-08] MEDS ORDERED: HYDROMORPHONE HCL INJ/PF 2 MG/ML AMPULE IV ONE ×3 (01:01→05:50)
--- NOTE | 2018-09-08 01:08 | ER Document Report ---
ED General - General Chief Complaint: Abdominal Pain Stated Complaint: ABDOMINAL PAIN,LOW BACK PAIN Time Seen by Provider: 09/07/18 18:22 Notes: Patient is a 33-year-old female presents with complaint of pain in left lower quadrant of the abdomen. She says she has had this in the past but is very intermittent. Tonight the pain is worse than usual. She does have a previous history of right oophorectomy. She says she also has a history of endometriosis. She says she thinks the oophorectomy was performed because she had precancerous cells on her right ovary. They therefore remove the ovary. She said she did get some injections afterwards but does not think it was chemotherapy. She denies any fevers. She has not been sexually active in the last several months. She does have heavy vaginal bleeding with her menstrual periods. She is currently not on her menstrual period. She does have chronic anemia because of this. She was followed by gynecology at [facility]. She has not seen them in some time because of insurance issues. She recently started working at the hospital here. TRAVEL OUTSIDE OF THE [place] IN LAST 30 DAYS: No - Related Data Allergies/Adverse Reactions: cinnamon Allergy (Verified 09/07/18 16:48) Past Medical History - Social History Smoking Status: Unknown if Ever Smoked Chew tobacco use (# tins/day): No Frequency of alcohol use: None Drug Abuse: None Family History: CVA, DM, Hyperlipidemia, Hypertension Patient has suicidal ideation: No Patient has homicidal ideation: No Renal/ Medical History: Reports: Hx Ovarian Cysts. 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 - Immunizations Hx Diphtheria, Pertussis, Tetanus Vaccination: Yes Review of Systems - Review of Systems Notes: My Normal Review Basic REVIEW OF SYSTEMS: CONSTITUTIONAL : Denies fever, chills, or sweats. Denies recent illness. EENT: Denies eye, ear, throat, or mouth pain or symptoms. Denies nasal or sinus congestion. RESPIRATORY: Denies cough, cold, or chest congestion. Denies shortness of breath, difficulty breathing, or wheezing. GASTROINTESTINAL: Pain in the left lower quadrant. GENITOURINARY: Denies difficulty urinating, painful urination, burning, frequency, or blood in urine. FEMALE GENITOURINARY: Normal vaginal bleeding or discharge. MUSCULOSKELETAL: Denies neck or back pain or joint pain or swelling. SKIN: Denies rash or skin lesions. HEMATOLOGIC : Denies easy bruising or bleeding. NEUROLOGICAL: Denies altered mental status or loss of consciousness. ALL OTHER SYSTEMS REVIEWED AND NEGATIVE. Physical Exam - Vital signs Vitals: Temp Pulse Resp BP Pulse Ox 98.9 F 86 20 124/62 100 09/07/18 17:03 09/07/18 17:03 09/07/18 17:03 09/07/18 17:03 09/07/18 17:03 - Notes Notes: General Appearance: Well nourished, alert, cooperative, no acute distress, moderate obvious discomfort. Vitals: reviewed, See vital signs table. Eyes: PERRL, EOMI, Conjuctiva clear Mouth: No decreasd moisture Lungs: No wheezing, No rales, No rhonci, No accessory muscle use, good air exchange bilaterally. Heart: Normal rate, Regular rythm, No murmur, no rub Abdomen: Normal BS, soft, No rigidity, very tender to palpation over left lower quadrant of abdomen., No guarding, no rebound, no abdominal masses, no organomegaly Exam: Pelvic exam performed with female ase certified technician at bedside. Patient has normal external genitalia. She has a small amount of normal-appearing white discharge in vaginal vault. She does have pain with speculum examination. Extremities: good pulses in all extremities, no swelling or tenderness in the extremities, no edema. Skin: warm, dry, appropriate color, no rash Neuro: speech clear, oriented x 3, normal affect, responds appropriately to questions. Course - Re-evaluation Re-evalutation: 09/08/18 05:[address] scan shows a fluid-filled structure with multiple septations in the left adnexa with complex appearing fluid. Therefore it is difficult to cause this a simple hydrosalpinx. She does not have a white count or fever and theref ore it is hard to say this is consistent with that of a tube ovarian abscess however on CT scan that is what the radiologist is leaning towards on his read. I did do pelvic exam and she does not have significant abnormal drainage. She still has significant pain and it is still not clear exactly what is causing this. It is also concerning that the patient has his previous history of possible ovarian cancer on the right ovary and had a oophorectomy at that time. I therefore have consulted Dr. Bernabe, hosiery pairer, evaluate the patient. He said he will come evaluate the patient. 09/08/18 05:57 09/08/18 07:01 Dr. Bernabe was very kind of the did come down to evaluate the patient and reviewed the patient's images. He agrees that is less likely to be to be ovarian abscess however he still recommends to do antibiotics in the meantime as the diagnosis is still not 100% clear. He suspects it is likely she has an enlarging chocolate cyst and that she will likely require hysterectomy. Patient's health insurance is not going effect until November 21 and she would like to try to hold off until then to have hysterectomy. He said he will her follow-up in the office. He recommends pain control as well as the antibiotics of doxycycline and Flagyl. I have also prescribed her iron and Colace to take being that she has a iron deficiency anemia and she needs treatment for that. I informed her to have a very low threshold to return to ER if she is intractable pain, heavy vaginal bleeding, fevers, or if she feels like she is worsening in any way. Patient agrees with plan and will be discharged home. Dictation of this chart was performed using voice recognition software; therefore, there may be some unintended grammatical errors. - Vital Signs Vital signs: Temp Pulse Resp BP Pulse Ox 98.9 F 86 20 124/62 100 09/07/18 17:03 09/07/18 17:03 09/07/18 17:03 09/07/18 17:03 09/07/18 17:03 - Laboratory Result Diagrams: 09/07/18 19:18 09/07/18 19:18 Laboratory results interpreted by me: 09/07/18 09/07/18 19:18 20:56 Hgb 7.7 L Hct 25.3 L MCV 63 L MCH 19.1 L MCHC 30.4 L RDW 18.1 H Ur Leukocyte Esterase TRACE H Discharge - Discharge Clinical Impression: Pelvic pain, Complex cyst of uterine adnexa Anemia Qualifiers: Anemia type: unspecified type Qualified Code(s): D64.9 - Anemia, unspecified Condition: Good Disposition: HOME, SELF-CARE Additional Instructions: I have prescribed you an antibiotic as recommended by Dr. Bernabe. Please take the antibiotic as prescribed. I have prescribed you some pain medication. Pain medication is for when pain is more intense and knev-vhw-jxoqyrz medications are not helping. This medication is called Crooks. Only take this medication when pain is more intense. Please be aware that Crooks does have Tylenol (acetaminophen) in it. Please make sure you do not take more than 4000 mg of acetaminophen a day. Do not drive or care for children after you have taken this medication they will make you sleepy and sometimes impair judgment. Please follow-up Dr. [facility]. Please take the iron pills as prescribed. I have also prescribed Colace. This medication is also jvsi-wke-rcfnjam and therefore if it is cheaper for you fwde-cjv-usnnlrg then you can get it tffa-rje-hfndcrv. Please have a low threshold to return to ER if you have intractable pain, fevers, heavy vaginal bleeding, lightheadedness, dizziness, or feel like you are worsening. Prescriptions: Docusate Sodium [Colace] 100 mg PO BID #60 capsule Doxycycline Hyclate 100 mg PO BID #14 capsule Ferrous Sulfate [Feosol] 325 mg PO DAILY #30 tablet Hydrocodone/Acetaminophen [Crooks 5-325 mg Tablet] 1 tab PO Q4 PRN #10 tablet PRN Reason: For Breakthrough Pain Metronidazole [Flagyl 500 mg Tablet] 500 mg PO Q6H #28 tablet Forms: Return to Work Referrals: JOHN BERNABE MD [ACTIVE STAFF] - Follow up in 3-5 days
[2018-09-08] MEDS ORDERED: NORMAL SALINE 1000 ML 1,000 ML IV ONE (02:15)
--- NOTE | 2018-09-08 05:01 | RADIOLOGY REPORT (SQ) ---
CT abdomen and pelvis with contrast on 09/08/2018 at 4:01 AM CLINICAL INDICATION: Left lower quadrant pain TECHNIQUE: Multiple axial images are obtained throughout the abdomen and pelvis following the administration of IV contrast, 100 mL of Omnipaque 300 contrast was administered intravenously without complication. This exam was performed according to our departmental dose-optimization program, which includes automated exposure control, adjustment of the mA and/or kV according to patient size and/or use of iterative reconstruction technique. Total DLP is 498.86 mGy*cm. COMPARISON: CT from 03/16/2018 and ultrasound from 09/07/2018 FINDINGS: Abdomen: There is minimal linear atelectasis or scarring in the left lower lung. The solid abdominal organs are unremarkable. There is no abdominal adenopathy. There is no free fluid or free air within the abdomen. The abdominal portion of the GI tract is unremarkable. Pelvis: Dilated fluid-filled adjacent tubular structures are noted in the left adnexa most consistent with hydrosalpinx or pyosalpinx. In correlation with the recent ultrasound this appears to have partly complex fluid within this and therefore raises a question of tubo-ovarian abscess. Recommend correlation with gynecologic exam and gynecology consultation. Trace free fluid is noted in the pelvis. There is no pelvic adenopathy. Pelvic portion of the GI tract including the appendix is unremarkable. No bony abnormality is noted. IMPRESSION: Dilated fluid-filled tubular structures in the left adnexa most consistent with hydrosalpinx or pyosalpinx. In correlation with the recent ultrasound this appears to have complex fluid within this and therefore favored to represent pyosalpinx and may be related to tubo-ovarian abscess. Recommend correlation with gynecologic exam and recommend gynecology consultation.
[2018-09-08 06:03] LABS: RBCS (WET MOUNT) NO RBCS SEEN; T.VAGINALIS (WET MOUNT) NO TRICHOMONAS SEEN; WBCS (WET MOUNT) NO WBCS SEEN; YEAST (WET MOUNT) NO YEAST SEEN
[2018-09-08] MEDS ORDERED: DOXYCYCLINE HYCLATE 100 MG TABLET PO ONE (06:45)
[2018-09-08] MEDS ORDERED: HYDROCODONE/ACETAMINOPHEN 5-325 MG (6 TAB/ER DISP) PO PRN (06:45)
[2018-09-08] MEDS ORDERED: METRONIDAZOLE 500 MG TABLET PO ONE (06:51)
[2018-09-08 07:35] LABS: CHLAM PCR NOT DETECTED (NOT DETECT)
[2018-09-08 07:42] VITALS: BP 119/65
--- NOTE | 2018-09-08 08:45 | CONSULTATION REPORT E ---
Consultation Report NAME: JAKE RED : 1985 AGE: 33Y DATE: 09/08/2018 TO: Manuel STAHL M.D. FROM: Ammon BIRD, Requesting Physician HISTORY OF PRESENT ILLNESS: This patient is a 33-year-old, 0, with a last menstrual period approximately 2 weeks ago. She presented to the ER complaining of left lower quadrant pain. She subsequently had CT that shows possible hydrosalpinx/pyosalpinx on the left. The patient gives a history of having three surgeries in the past for severe endometriosis and has dysmenorrhea, according to her on the scale of 1 to 10 for pain is a 12. The patient's white count is approximately 4000, and she is afebrile. PHYSICAL EXAMINATION: As per the ER physician. ASSESSMENT: Possible pyosalpinx or hydrosalpinx with possible endometrioma on the left side. PLAN: In discussion with the patient, it was decided at this point that we would place her on antibiotics for a period of time and follow her progress. If we are forced to do anything in the meantime, we can do diagnostic laparoscopy or open laparotomy. We also discussed with the patient her need for hysterectomy secondary to her endometriosis and her heavy vaginal bleeding which has resulted in her chronic anemia. She will follow up with us in our office. DICTATING PHYSICIAN: Manuel STAHL M.D. [id number] PHY#: [id number] ID: [id number] JOB#: [id number] ACCT: [id number] cc:Manuel STAHL M.D. >
[2018-09-08 12:11] LABS: PATH REVIEW PATHOLOGIST REVIEWED
== END 2018-09-08 07:45 | disposition home or self-care (01) ==
LOC: ER 16:45
DX: N85.8 Other specified noninflammatory disorders of uterus (principal); D64.9 Anemia, unspecified; R10.9 Unspecified abdominal pain; M54.5 Low back pain; R10.32 Left lower quadrant pain; R10.2 Pelvic and perineal pain
CPT/HCPCS: 96376; 99284; 96372; 96361; 96374; 86900; 86901; 36415; 87210; 86850; 84703; 85025; 80053; 81001; 87491; 87591; 76830; 93976; 74177; S0119; J1885; J1170; J7030

== ENCOUNTER 2018-11-29 05:36 | Inpatient (IN) | payer BC, OTHER ==
[2018-11-22 11:15] LABS: HEMATOCRIT 33.6 % (36.0-47.0); HEMOGLOBIN 10.5 g/dL (12.0-15.5); MEAN CORPUSCULAR HEMOGLOBIN 22.4 pg (27.0-33.4); MEAN CORPUSCULAR HGB CONC 31.2 g/dL (32.0-36.0); MEAN CORPUSCULAR VOLUME 72 fl (80-97); PLATELET COUNT 234 10^3/uL (150-450); RED BLOOD COUNT 4.67 10^6/uL (3.72-5.28); RED CELL DISTRIBUTION WIDTH 24.6 % (11.5-14.0); WHITE BLOOD COUNT 5.1 10^3/uL (4.0-10.5)
[2018-11-22 11:19] LABS: APPEARANCE,URINE SLIGHTLY-CLOUDY; BILIRUBIN,URINE NEGATIVE (NEGATIVE); COLOR,URINE YELLOW; GLUCOSE, URINE NEGATIVE (NEGATIVE); KETONES,URINE NEGATIVE (NEGATIVE); LEUKOCYTE ESTERASE,URINE NEGATIVE (NEGATIVE); NITRITE,URINE NEGATIVE (NEGATIVE); PROTEIN,URINE NEGATIVE (NEGATIVE); URINE SPECIFIC GRAVITY 1.012; UROBILINOGEN,URINE NEGATIVE mg/dL (<2.0)
[2018-11-22 11:37] LABS: ALBUMIN 4.9 g/dL (3.5-5.0); ALKALINE PHOSPHATASE 65 U/L (38-126); ANION GAP 13 (5-19); ASPARTATE AMINO TRANSFERASE 27 U/L (14-36); BILIRUBIN,DIRECT 0.1 mg/dL (0.0-0.4); BILIRUBIN,TOTAL 0.3 mg/dL (0.2-1.3); BLOOD UREA NITROGEN 8 mg/dL (7-20); CALCIUM 9.3 mg/dL (8.4-10.2); CARBON DIOXIDE 24 mmol/L (22-30); CHLORIDE 102 mmol/L (98-107); GLUCOSE 80 mg/dL (75-110); POTASSIUM 4.1 mmol/L (3.6-5.0)
[~2018-11-29 05:36] MED LIST: CEFAZOLIN SODIUM 2 GM in DEXTROSE 5%-WATER 100 ML IV PRN; LACTATED RINGERS 1000 ML IV PRN
[2018-11-29] MEDS ORDERED: EPHEDRINE SULFATE INJ 50 MG/1 ML AMPULE ONE (07:11)
[2018-11-29] MEDS ORDERED: FENTANYL CITRATE INJ/PF 250 MCG/5 ML AMPULE ONE (07:11)
[2018-11-29] MEDS ORDERED: MIDAZOLAM 2 MG/2 ML INJ ONE (07:11)
[2018-11-29] MEDS ORDERED: PROPOFOL INJ 200 MG/20 ML VIAL IV ONE (07:12)
[2018-11-29] MEDS ORDERED: OXYCODONE-ACETAMINOPHEN 5-325 MG TABLET PO PRN ×2 (07:56)
[2018-11-29] MEDS ORDERED: FENTANYL CITRATE INJ/PF 100 MCG/2 ML AMPUL IV PRN ×2 (07:56)
[2018-11-29] MEDS ORDERED: PROMETHAZINE HCL INJ 25 MG/1 ML VIAL IV PRN ×2 (07:56)
[2018-11-29] MEDS ORDERED: DIPHENHYDRAMINE HCL 50 MG/ML VIAL IV PRN (07:56)
[2018-11-29] MEDS ORDERED: MEPERIDINE HCL/PF INJ 25 MG/1 ML DISP.SYRIN IV PRN (07:56)
--- NOTE | 2018-11-29 10:17 | Operative Report ---
Operative Report DATE OF SURGERY: 11/29/18 PREOPERATIVE DIAGNOSIS: Pelvic mass with prior right S and O and endometriosis POSTOPERATIVE DIAGNOSIS: Same plus multiple adhesions and a left endometrioma OPERATION: Total abdominal hysterectomy with a left S&O lysis of adhesions SURGEON: JOHN STAHL 1ST DISABILITY ADVOCATE: GRANT LAIRD ANESTHESIA: GA INTRAOPERATIVE FINDINGS: Multiple adhesions from the bowel to the anterior abdominal wall adhesions to the uterus from the left adnexa and bowel PROCEDURE: Patient was prepped and draped in the usual fashion. A midline incision was made through the existing midline eschar. Vision was extended through the fascia. On entering the abdomen there were multiple adhesions from the bowel to the anterior abdominal wall. These were taken down with sharp dissection. The bowel was freed sufficiently to admit the O'Gregory-O'Fierro retractor to be placed. Bowel was packed with moistened saline packs. There were multiple adhesions from the bowel to the left adnexa which was approximately 8 x 8 cm. Careful dissection these were taken down. Left round was identified and then sutured. Multiple adhesions from the posterior aspect of the uterus were taken down with blunt sharp dissection. The right round ligament was identified and sutured. The left round was then divided and Achilles free space was entered. Family was clamped with a clamped divided and sutured with a 3 type II 0 Vicryl followed by suture tie II 0 Vicryl. Treatment accomplished by dividing the pedicles which were clamped with sharp dissection and then sutured with 2-0 Vicryl. Bladder flap was created with blunt sharp dissection. Clamps were placed across the cervix. The uterus cervix were removed with sharp excision. The vaginal cuff was then closed with interrupted sutures of 2-0 Vicryl. This was then removed by carefully dissecting away the bowel and finding the infundibulopelvic on the left. This was clamped and divided. The cyst wall was then removed with sharp dissection. Pelvis irrigated with normal saline hemostasis was noted. FloSeal was placed in the cul-de-sac there were 2 areas of bleeding noted these were controlled with 3-0 Vicryl interrupted sutures. Surgicel was placed in the cul-de-sac. The retractor was removed and the wet moistened packs were removed. Fascia was closed with 0 PDS with one suture beginning at the top of the incision around to the midline second at the bottom and went to the midline. Subcu tissue was then plicated midline uterine 2-0 Vicryl. And the incision was closed with 4-0 Monocryl. Patient's urine remained clear after procedure she was taken recovery in good condition
[2018-11-29] MEDS ORDERED: HYDROMORPHONE HCL INJ/PF 2 MG/ML AMPULE ONE (10:32)
[2018-11-29] MEDS ORDERED: ACETAMINOPHEN 1,000 MG/100 ML RTUPB IV ONE (10:34)
[2018-11-29] MEDS ORDERED: FENTANYL CITRATE INJ/PF 100 MCG/2 ML AMPUL ONE (10:51)
[2018-11-29] MEDS ORDERED: PROMETHAZINE HCL INJ 25 MG/1 ML VIAL ONE (10:56)
[2018-11-29] MEDS: FENTANYL CITRATE INJ/PF 100 MCG/2 ML AMPUL IV PRN ×2 (11:01→11:14)
[2018-11-29] MEDS ORDERED: DEXMEDETOMIDINE INJ 80 MCG/20 ML VIAL IV ONE (11:19)
[2018-11-29] MEDS ORDERED: LORAZEPAM INJ 2 MG/1 ML VIAL ONE (11:44)
[2018-11-29 11:50] LABS: HEMATOCRIT 26.8 % (36.0-47.0); HEMOGLOBIN 8.4 g/dL (12.0-15.5); MEAN CORPUSCULAR HEMOGLOBIN 22.2 pg (27.0-33.4); MEAN CORPUSCULAR HGB CONC 31.5 g/dL (32.0-36.0); MEAN CORPUSCULAR VOLUME 70 fl (80-97); PLATELET COUNT 159 10^3/uL (150-450); RED BLOOD COUNT 3.81 10^6/uL (3.72-5.28); RED CELL DISTRIBUTION WIDTH 22.7 % (11.5-14.0); WHITE BLOOD COUNT 11.5 10^3/uL (4.0-10.5)
[2018-11-29] MEDS ORDERED: ONDANSETRON HCL INJ/PF 4 MG/2 ML SDV ONE ×2 (12:24)
[2018-11-29] MEDS ORDERED: ROCURONIUM BROMIDE INJ 50 MG/5 ML VIAL IV ONE (12:24)
[2018-11-29] MEDS ORDERED: SUCCINYLCHOLINE CHLORIDE INJ 200 MG/10 ML VIAL ONE (12:24)
[2018-11-29] MEDS ORDERED: GLYCOPYRROLATE 1 MG/5 ML VIAL ONE (12:24)
[2018-11-29] MEDS ORDERED: NEOSTIGMINE METHYLSULFATE 10 MG/10 ML VIAL ONE (12:24)
[2018-11-29] MEDS ORDERED: DEXAMETHASONE SOD PHOSPHATE INJ 4 MG/1 ML VIAL ONE (12:24)
[2018-11-29] MEDS ORDERED: KETOROLAC TROMETHAMINE 60 MG/2 ML SDV ONE (12:24)
[2018-11-29] MEDS ORDERED: KETOROLAC TROMETHAMINE INJ/PF 30 MG/1 ML SDV IV ONE (13:02)
[2018-11-29] MEDS ORDERED: KETOROLAC TROMETHAMINE INJ/PF 30 MG/1 ML SDV ONE (13:03)
[2018-11-29] MEDS ORDERED: RINGERS SOLUTION,LACTATED 1,000 ML IV PRN (13:53)
[2018-11-29] MEDS ORDERED: MORPHINE SULFATE 10 MG/ML INJ IM PRN (13:56)
[2018-11-29] MEDS: IBUPROFEN 800 MG TABLET PO SCH ×2 (14:32→21:50)
[2018-11-29] MEDS: OXYCODONE-ACETAMINOPHEN 5-325 MG TABLET PO PRN (14:47)
[2018-11-29] MEDS: ESTROGENS,CONJUGATED 1.25 MG TABLET PO SCH (14:48)
[2018-11-29] MEDS: SIMETHICONE 80 MG TAB.CHEW PO PRN (15:47)
[2018-11-29] MEDS: DEXTROSE 5%-LACTATED RINGERS 1,000 ML IV PRN (19:59)
[2018-11-29] MEDS ORDERED: MORPHINE SULFATE 10 MG/ML INJ IV PRN (20:16)
[2018-11-29] MEDS ORDERED: HYDROMORPHONE HCL INJ/PF 2 MG/ML AMPULE IV ONE (20:45)
[2018-11-30] MEDS: SIMETHICONE 80 MG TAB.CHEW PO PRN ×4 (00:43→17:22)
[2018-11-30] MEDS: OXYCODONE-ACETAMINOPHEN 5-325 MG TABLET PO PRN ×4 (00:43→20:06)
[2018-11-30] MEDS: IBUPROFEN 800 MG TABLET PO SCH ×3 (05:30→22:33)
[2018-11-30] MEDS: DEXTROSE 5%-LACTATED RINGERS 1,000 ML IV PRN (05:31)
--- NOTE | 2018-11-30 09:37 | PDOC PROGRESS REPORT ---
Subjective Progress Note for:: 11/30/18 Subjective:: pt c/o soreness Reason For Visit: N92.1 EXCESSIVE AND FREQUENT MENSTRUATION WITH IRR pelvic mass Physical Exam - Physical Exam Vital Signs: Temp Pulse Resp BP Pulse Ox 98.9 F 82 16 101/53 L 100 11/30/18 07:41 11/30/18 07:41 11/30/18 07:41 11/30/18 07:41 11/30/18 07:41 Intake & Output 11/29/18 11/30/18 12/01/18 06:59 06:59 06:59 Intake Total 0 4500 Output Total 3350 Balance 0 1150 General appearance: PRESENT: no acute distress GI/Abdominal exam: PRESENT: soft, tenderness Result Laboratory Results: 11/29/18 11:31 11/22/18 10:33 11/29/18 11:31 WBC 11.5 H RBC 3.81 Hgb 8.4 L Hct 26.8 L MCV 70 L MCH 22.2 L MCHC 31.5 L RDW 22.7 H Plt Count 159 Assessment & Plan - Diagnosis (1) Pelvic mass in female Is this a current diagnosis for this admission?: Yes (2) Pelvic pain Is this a current diagnosis for this admission?: Yes (3) Dysmenorrhea Is this a current diagnosis for this admission?: Yes - Time Time Spent with patient: Less than 15 minutes Medications reviewed and adjusted accordingly: Yes - Plan Summary Plan Summary: routine post op care encourage ambulation d/c in am if stable and doing well
[2018-11-30] MEDS: ESTROGENS,CONJUGATED 1.25 MG TABLET PO SCH (10:05)
[2018-12-01] MEDS: SIMETHICONE 80 MG TAB.CHEW PO PRN (02:14)
[2018-12-01] MEDS: OXYCODONE-ACETAMINOPHEN 5-325 MG TABLET PO PRN ×2 (02:14→07:56)
[2018-12-01] MEDS: IBUPROFEN 800 MG TABLET PO SCH (06:30)
--- NOTE | 2018-12-01 07:11 | PDOC DISCHARGE SUMMARY ---
Impression - Admit/DC Date/PCP Admission Date/Primary Care Provider: 11/29/18 05:36 Discharge Date: 12/01/18 - Discharge Diagnosis (1) Pelvic mass in female Is this a current diagnosis for this admission?: Yes (2) Pelvic pain Is this a current diagnosis for this admission?: Yes (3) Dysmenorrhea Is this a current diagnosis for this admission?: Yes - Additional Information Resuscitation Status: Full Code Discharge Diet: As Tolerated Discharge Activity: Activity As Tolerated, No Lifting/Push/Pulling, Pelvic Rest, Slowly Increase Activity, No tub bath, Walk Frequently Prescriptions: Oxycodone HCl/Acetaminophen [Percocet 5-325 mg Tablet] 1 tab PO Q6HP PRN #30 tablet PRN Reason: Ibuprofen [Motrin 800 mg Tablet] 800 mg PO Q8 #90 tablet Estrogens,Conjugated [Premarin 1.25 mg Tablet] 1.25 mg PO DAILY #30 tablet Home Medications: Estrogens,Conjugated [Premarin 1.25 mg Tablet] 1.25 mg PO DAILY #30 tablet 12/01/18 Ibuprofen [Motrin 800 mg Tablet] 800 mg PO Q8 #90 tablet 12/01/18 Oxycodone HCl/Acetaminophen [Percocet 5-325 mg Tablet] 1 tab PO Q6HP PRN #30 tablet 12/01/18 History of Present Illiness History of Present Illness: JAKE RED is a 33 year old female pt admitted with above diagnosis. [facility] LS&O Hospital Course Hospital Course: routine post op course pt tolerating regular diet and passing gas afebrile and ambulating Physical Exam - Physical Exam Vital Signs: Temp Pulse Resp BP Pulse Ox 98.1 F 88 16 100/56 L 100 12/01/18 04:00 12/01/18 04:00 12/01/18 04:00 12/01/18 04:00 12/01/18 04:00 Intake & Output 11/30/18 12/01/18 12/02/18 06:59 06:59 06:59 Intake Total 4500 1500 Output Total 3350 500 Balance 1150 1000 General appearance: PRESENT: no acute distress GI/Abdominal exam: PRESENT: soft - incision without signs of infection Results Laboratory Results: WBC 11.5 10^3/uL (4.0-10.5) H 11/29/18 11:31 RBC 3.81 10^6/uL (3.72-5.28) 11/29/18 11:31 Hgb 8.4 g/dL (12.0-15.5) L 11/29/18 11:31 Hct 26.8 % (36.0-47.0) L 11/29/18 11:31 MCV 70 fl (80-97) L 11/29/18 11:31 MCH 22.2 pg (27.0-33.4) L 11/29/18 11:31 MCHC 31.5 g/dL (32.0-36.0) L 11/29/18 11:31 RDW 22.7 % (11.5-14.0) H 11/29/18 11:31 Plt Count 159 10^3/uL (150-450) 11/29/18 11:31 Sodium 138.6 mmol/L (137-145) 11/22/18 10:33 Potassium 4.1 mmol/L (3.6-5.0) 11/22/18 10:33 Chloride 102 mmol/L (98-107) 11/22/18 10:33 Carbon Dioxide 24 mmol/L (22-30) 11/22/18 10:33 Anion Gap 13 (5-19) 11/22/18 10:33 BUN 8 mg/dL (7-20) 11/22/18 10:33 Creatinine 0.60 mg/dL (0.52-1.25) 11/22/18 10:33 Est GFR ( Amer) > 60 (>60) 11/22/18 10:33 Est GFR (MDRD) Non-Af > 60 (>60) 11/22/18 10:33 Glucose 80 mg/dL (75-110) 11/22/18 10:33 Calcium 9.3 mg/dL (8.4-10.2) 11/22/18 10:33 Total Bilirubin 0.3 mg/dL (0.2-1.3) 11/22/18 10:33 Direct Bilirubin 0.1 mg/dL (0.0-0.4) 11/22/18 10:33 Neonat Total Bilirubin Not Reportable 11/22/18 10:33 Neonat Direct Bilirubin Not Reportable 11/22/18 10:33 Neonat Indirect Bili Not Reportable 11/22/18 10:33 AST 27 U/L (14-36) 11/22/18 10:33 ALT 16 U/L (<35) 11/22/18 10:33 Alkaline Phosphatase 65 U/L (38-126) 11/22/18 10:33 Total Protein 8.0 g/dL (6.3-8.2) 11/22/18 10:33 Albumin 4.9 g/dL (3.5-5.0) 11/22/18 10:33 Urine Color YELLOW 11/22/18 10:22 Urine Appearance SLIGHTLY-CLOUDY 11/22/18 10:22 Urine pH 6.0 (5.0-9.0) 11/22/18 10:22 Ur Specific [place] 1.012 11/22/18 10:22 Urine Protein NEGATIVE mg/dL (NEGATIVE) 11/22/18 10:22 Urine Glucose (UA) NEGATIVE mg/dL (NEGATIVE) 11/22/18 10:22 Urine Ketones NEGATIVE mg/dL (NEGATIVE) 11/22/18 10:22 Urine Blood NEGATIVE (NEGATIVE) 11/22/18 10:22 Urine Nitrite NEGATIVE (NEGATIVE) 11/22/18 10:22 Urine Bilirubin NEGATIVE (NEGATIVE) 11/22/18 10:22 Urine Urobilinogen NEGATIVE mg/dL (<2.0) 11/22/18 10:22 Ur Leukocyte Esterase NEGATIVE (NEGATIVE) 11/22/18 10:22 Urine WBC (Auto) 0 /HPF 11/22/18 10:22 Urine RBC (Auto) 1 /HPF 11/22/18 10:22 Squamous Epi Cells Auto 3 /HPF 11/22/18 10:22 Urine Mucus (Auto) RARE /LPF 11/22/18 10:22 Urine Ascorbic Acid NEGATIVE (NEGATIVE) 11/22/18 10:22 Urine HCG, Qual NEGATIVE (NEGATIVE) 11/29/18 05:45 Blood Type O NEGATIVE 11/22/18 10:33 Antibody Screen NEGATIVE 11/22/18 10:33 Plan Plan of Treatment: DC follow up 1 week or prn Time Spent: Less than 30 Minutes Stroke Is this a Stroke Patient?: No Acute Heart Failure - Is this a Heart Failure Patient?: No
[2018-12-01 07:49] VITALS: BP 100/56
== END 2018-12-01 08:44 | disposition home or self-care (01) | DRG 743 ==
LOC: INOR 05:36 → 2N 12:50
PROVIDERS: ADMIT Obstetrics & Gynecology Gynecology; ATTEND Obstetrics & Gynecology Gynecology
PROC: 0UT60ZZ Resection of Left Fallopian Tube, Open Approach (ICD-10-PCS; 2018-11-29)
PROC: 0UT10ZZ Resection of Left Ovary, Open Approach (ICD-10-PCS; 2018-11-29)
PROC: 0DNE0ZZ Release Large Intestine, Open Approach (ICD-10-PCS; 2018-11-29)
PROC: 0UT90ZZ Resection of Uterus, Open Approach (ICD-10-PCS; principal; 2018-11-29 07:15)
DX: D25.1 Intramural leiomyoma of uterus (principal); N80.0 Endometriosis of uterus; N92.1 Excessive and frequent menstruation with irregular cycle; N73.6 Female pelvic peritoneal adhesions (postinfective); N94.6 Dysmenorrhea, unspecified; Z90.721 Acquired absence of ovaries, unilateral; Z90.79 Acquired absence of other genital organ(s); Z87.891 Personal history of nicotine dependence
CPT/HCPCS: 36415; 80053; 81001; 81025; 840; 85027; 86850; 86900; 86901; 88307; J0131; J0330; J0690; J1100; J1170; J1885; J2060; J2250; J2270; J2405; J2550; J2704; J2710; J3010; J3490; J7060; J7121

== ENCOUNTER 2018-12-04 17:56 | Inpatient (IN) | payer BC, OTHER ==
[2018-12-04] MEDS ORDERED: ONDANSETRON HCL INJ/PF 4 MG/2 ML SDV IV ONE ×3 (19:23→23:40)
[2018-12-04] MEDS ORDERED: FENTANYL CITRATE INJ/PF 100 MCG/2 ML AMPUL IV ONE (19:23)
[2018-12-04] MEDS ORDERED: NORMAL SALINE 1000 ML 1,000 ML IV ONE ×2 (19:23→22:04)
--- NOTE | 2018-12-04 19:29 | ER Document Report ---
ED Medical Screen (RME) - General Chief Complaint: Abdominal Cramping Stated Complaint: VOMITING/POST SURGERY ON 11/29/18 Time Seen by Provider: 12/04/18 19:03 Notes: 33-year-old female POD# 5 status post BRYCE presents the emergency department with acute, diffuse abdominal pain. Patient is in significant distress and actively vomiting in the room when I assessed. Difficult to obtain a history from the patient. Patient states that the pain is generalized and cannot qualify or quantify it. Patient had a bowel movement this morning "right now". Patient is actively passing gas. Patient denies any fevers or chills, acute shortness of breath or chest pain. Exam: In acute distress actively vomiting, surgical site and dressing clean dry and intact along the mid sagittal line over the umbilicus, abdomen is soft but acutely tender in all quadrants, skin is warm and dry with no erythema I have greeted and performed a rapid initial assessment of this patient. A comprehensive ED assessment and evaluation of the patient, analysis of test results and completion of medical decision making process will be conducted by an additional ED providers. TRAVEL OUTSIDE OF THE [place] IN LAST 30 DAYS: No - Related Data Allergies/Adverse Reactions: cinnamon Allergy (Verified 11/29/18 07:17) Past Medical History - Social History Chew tobacco use (# tins/day): No Frequency of alcohol use: None Drug Abuse: None Renal/ Medical History: Denies: Hx Ovarian Cysts, Hx Peritoneal Dialysis, Hx Pelvic Inflammatory Disease Malignancy Medical History: Denies: Hx Breast Cancer, Hx Cervical Cancer, Hx Leukemia, Hx Ovarian Cancer Psychiatric Medical History: Reports: Hx Anxiety Infectious Medical History: Denies: Hx HIV Past Surgical History: Reports: Hx Abdominal Surgery - Bowel Obstruction, Hx Bowel Surgery - BOWEL RESECTION, Hx Gynecologic Surgery - Removal of right ovary and a tumor in 2009.. Denies: Hx Appendectomy, Hx Section, Hx Cholecystectomy, Hx Coronary Artery Bypass Graft, Hx Gastric Bypass Surgery, Hx Herniorrhaphy, Hx Hysterectomy, Hx Mastectomy, Hx Pacemaker, Hx Tonsillectomy, Hx Tubal Ligation - Immunizations Hx Diphtheria, Pertussis, Tetanus Vaccination: Yes Physical Exam - Vital signs Vitals: Temp Pulse Resp BP Pulse Ox 99.1 F 101 H 20 155/110 H 98 12/04/18 18:10 12/04/18 18:10 12/04/18 18:10 12/04/18 18:10 12/04/18 18:10 Course - Vital Signs Vital signs: Temp Pulse Resp BP Pulse Ox 99.1 F 101 H 20 155/110 H 98 12/04/18 18:10 12/04/18 18:10 12/04/18 18:10 12/04/18 18:10 12/04/18 18:10
--- NOTE | 2018-12-04 20:01 | ER Document Report ---
ED General - General Chief Complaint: Abdominal Cramping Stated Complaint: VOMITING/POST SURGERY ON 11/29/18 Time Seen by Provider: 12/04/18 19:03 TRAVEL OUTSIDE OF THE [place] IN LAST 30 DAYS: No - HPI Patient complains to provider of: abd pain Notes: 33 y/o presenting to ED for evaluation of abdominal pain hysterectomy done Tuesday of last week by Dr Bernabe no fever or chills has had green vomit and decreased BM denies urinary pain denies blood in stool or emesis pain is a severe constant stabbing pain - Related Data Allergies/Adverse Reactions: cinnamon Allergy (Verified 11/29/18 07:17) Past Medical History - Social History Smoking Status: Never Smoker Chew tobacco use (# tins/day): No Frequency of alcohol use: None Drug Abuse: None Family History: CVA, DM, Hyperlipidemia, Hypertension Patient has suicidal ideation: No Patient has homicidal ideation: No Renal/ Medical History: Denies: Hx Ovarian Cysts, Hx Peritoneal Dialysis, Hx Pelvic Inflammatory Disease Malignancy Medical History: Denies: Hx Breast Cancer, Hx Cervical Cancer, Hx Leukemia, Hx Ovarian Cancer Psychiatric Medical History: Reports: Hx Anxiety Infectious Medical History: Denies: Hx HIV Past Surgical History: Reports: Hx Abdominal Surgery - Bowel Obstruction, Hx Bowel Surgery - BOWEL RESECTION, Hx Gynecologic Surgery - Removal of right ovary and a tumor in 2009.. Denies: Hx Appendectomy, Hx Section, Hx Cholecystectomy, Hx Coronary Artery Bypass Graft, Hx Gastric Bypass Surgery, Hx Herniorrhaphy, Hx Hysterectomy, Hx Mastectomy, Hx Pacemaker, Hx Tonsillectomy, Hx Tubal Ligation - Immunizations Hx Diphtheria, Pertussis, Tetanus Vaccination: Yes Review of Systems - Review of Systems Constitutional: No symptoms reported EENT: No symptoms reported Cardiovascular: No symptoms reported Respiratory: No symptoms reported Gastrointestinal: Abdominal pain, Nausea, Vomiting. denies: Blood streaked bowels, Blood in vomit, Black stools, Rectal bleeding Genitourinary: No symptoms reported Female Genitourinary: No symptoms reported Musculoskeletal: No symptoms reported Skin: No symptoms reported Hematologic/Lymphatic: No symptoms reported Neurological/Psychological: No symptoms reported Physical Exam - Vital signs Vitals: Temp Pulse Resp BP Pulse Ox 99.1 F 101 H 20 155/110 H 98 12/04/18 18:10 12/04/18 18:10 12/04/18 18:10 12/04/18 18:10 12/04/18 18:10 Interpretation: Normal - General General appearance: Appears well, Alert - HEENT Head: Normocephalic, Atraumatic Eyes: Normal Pupils: PERRL Mucous membranes: Dry Pharynx: Normal Neck: Normal - Respiratory Respiratory status: No respiratory distress Chest status: Nontender Breath sounds: Normal Chest palpation: Normal - Cardiovascular Rhythm: Regular Heart sounds: Normal auscultation Murmur: No Normal capillary refill: Yes - Abdominal Inspection: Other - midline surgical incsion Distension: Distended Bowel sounds: Hypoactive Tenderness: Tender Organomegaly: No organomegaly - Back Back: Normal, Nontender - Extremities General upper extremity: Normal inspection, Nontender, Normal color, Normal ROM, Normal temperature General lower extremity: Normal inspection, Nontender, Normal color, Normal ROM, Normal temperature, Normal weight bearing. No: Odilia's sign - Neurological Neuro grossly intact: Yes Cognition: Normal Orientation: AAOx4 Guffey Coma Scale Eye Opening: Spontaneous Guffey Coma Scale Verbal: Oriented Drew Coma Scale Motor: Obeys Commands Drew Coma Scale Total: 15 Speech: Normal Motor strength normal: LUE, RUE, LLE, RLE Sensory: Normal - Psychological Associated symptoms: Normal affect, Normal mood - Skin Skin Temperature: Warm Skin Moisture: Dry Skin Color: Normal Course - Re-evaluation Re-evalutation: 12/04/18 20:23 abd pain post operatively has a h/o bowel obstruction and apparently hysterectomy was a complex procedure will provide ivf, antiemetics, analgesics and obtain CT scan 12/04/18 23:51 patient has required supplemental doses of pain and nausea meds CT shows SBO -> ng tube ordered given obgyn post op complication -> discussed w/ Dr Gaffney from OBGYN for admission who has accepted patient - Vital Signs Vital signs: Temp Pulse Resp BP Pulse Ox 99.1 F 101 H 20 155/110 H 98 12/04/18 18:10 12/04/18 18:10 12/04/18 18:10 12/04/18 18:10 12/04/18 18:10 - Laboratory Result Diagrams: 12/04/18 20:03 12/04/18 20:03 Laboratory results interpreted by me: 12/04/18 12/04/18 20:03 21:37 Hgb 8.7 L Hct 27.8 L MCV 71 L MCH 22.1 L MCHC 31.2 L RDW 22.5 H Lymph % (Auto) 7.0 L Seg Neutrophils % 86.8 H Urine Ketones 80 H - Diagnostic Test Radiology reviewed: Image reviewed, Reports reviewed Discharge - Discharge Clinical Impression: SBO (small bowel obstruction), Elevated blood pressure reading Condition: Stable Disposition: ADMITTED INPATIENT Admitting Provider: [facility]
[2018-12-04] MEDS ORDERED: MORPHINE SULFATE 10 MG/ML INJ IV ONE ×2 (20:20→23:24)
[2018-12-04 20:23] LABS: ABSOLUTE LYMPHOCYTES (AUTO) 0.6 10^3/uL (0.5-4.7); ABSOLUTE MONOCYTES (AUTO) 0.5 10^3/uL (0.1-1.4); ABSOLUTE NEUT (AUTO) 7.8 10^3/uL (1.7-8.2); BASOPHILS % (AUTO) 0.3 % (0-2); EOSINOPHILS % (AUTO) 0.2 % (0-6); HEMATOCRIT 27.8 % (36.0-47.0); HEMOGLOBIN 8.7 g/dL (12.0-15.5); MEAN CORPUSCULAR HEMOGLOBIN 22.1 pg (27.0-33.4); MEAN CORPUSCULAR HGB CONC 31.2 g/dL (32.0-36.0); MEAN CORPUSCULAR VOLUME 71 fl (80-97); MONOCYTES % (AUTO) 5.7 % (3-13); PLATELET COUNT 259 10^3/uL (150-450); RED BLOOD COUNT 3.93 10^6/uL (3.72-5.28); RED CELL DISTRIBUTION WIDTH 22.5 % (11.5-14.0); SEGMENTED NEUTROPHILS % (AUTO) 86.8 % (42-78); TOTAL CELLS COUNTED % (AUTO) 100 %
[2018-12-04 20:42] LABS: ALBUMIN 4.5 g/dL (3.5-5.0); ALKALINE PHOSPHATASE 67 U/L (38-126); ANION GAP 13 (5-19); ASPARTATE AMINO TRANSFERASE 23 U/L (14-36); BILIRUBIN,DIRECT 0.2 mg/dL (0.0-0.4); BILIRUBIN,TOTAL 0.3 mg/dL (0.2-1.3); BLOOD UREA NITROGEN 7 mg/dL (7-20); CALCIUM 10.1 mg/dL (8.4-10.2); CARBON DIOXIDE 25 mmol/L (22-30); CHLORIDE 100 mmol/L (98-107); GLUCOSE 91 mg/dL (75-110)
[2018-12-04 21:57] LABS: APPEARANCE,URINE CLEAR; BILIRUBIN,URINE NEGATIVE (NEGATIVE); COLOR,URINE STRAW; GLUCOSE, URINE NEGATIVE (NEGATIVE); KETONES,URINE 80 mg/dL (NEGATIVE); LEUKOCYTE ESTERASE,URINE NEGATIVE (NEGATIVE); NITRITE,URINE NEGATIVE (NEGATIVE); PROTEIN,URINE NEGATIVE (NEGATIVE); URINE SPECIFIC GRAVITY 1.008; UROBILINOGEN,URINE NEGATIVE mg/dL (<2.0)
--- NOTE | 2018-12-04 23:38 | RADIOLOGY REPORT (SQ) ---
EXAM DESCRIPTION: CT ABDOMEN PELVIS WITH IV CONTRAST COMPLETED DATE/TME: 12/04/2018 19:25 CLINICAL HISTORY: diffuse abd pain RECENT HYSTERECTOMY COMPARISON: 09/08/2018 TECHNIQUE: CT of the abdomen and pelvis performed following IV administration of 65.1 mL of Omnipaque 350. FINDINGS: Lung Bases: The visualized lung bases are clear. Bones: No destructive bone lesions identified. Abdomen: Liver: The liver has normal size and density. No intrahepatic mass or biliary dilatation. Gallbladder: No calcified gallstones. Spleen, Pancreas, and Adrenal Glands: The spleen, pancreas, and adrenal glands are unremarkable. Kidneys: The kidneys have normal size without evidence of solid mass or hydronephrosis. Vasculature: The aorta and IVC have normal caliber and position. The portal vein is patent. The proximal visceral and renal arteries are patent. Stomach: The stomach and duodenum have normal course. Other: No free intraperitoneal air. Moderate amount of free fluid. Pelvis: Bladder: Urinary bladder is unremarkable. Bowel: Significantly dilated loops of small bowel throughout the abdomen with multiple air-fluid levels. The distal small bowel and colon are decompressed. A definitive transition point is not identified on this study. Appendix: Normal appendix. Pelvis: Prior hysterectomy. No definite well-circumscribed fluid collection identified on this study. IMPRESSION: 1. Findings compatible with small bowel obstruction with transition point likely in the pelvis however it is not definitely identified on this study. The distal small bowel and colon are decompressed. 2. Moderate amount of free This exam was performed according to our departmental dose-optimization program, which includes automated exposure control, adjustment of the mA and/or kV according to patient size and/or use of iterative reconstruction technique.
[2018-12-04] MEDS ORDERED: LORAZEPAM INJ 2 MG/1 ML VIAL IV ONE (23:45)
[2018-12-05] MEDS ORDERED: DEXTROSE 40% GEL 15 GM TUBE PO PRN ×2 (00:59)
[2018-12-05] MEDS ORDERED: DEXTROSE 50%-WATER 25 GM/50 ML DISP.SYRIN IV PRN ×2 (00:59)
[2018-12-05] MEDS ORDERED: GLUCAGON,HUMAN RECOMB 1 MG INJ SUBCUT PRN (00:59)
--- NOTE | 2018-12-05 00:59 | PDOC H&P ---
History of Present Illness Admission Date/PCP: 12/04/18 23:57 Patient complains of: Nausea and vomiting History of Present Illness: JAKE RED is a 33 year old female She recently had a BRYCE for benign reasons and now presents with small bowel obstruction per CT scan. Past Medical History Gynecological Infection: No Gynecological History Note: recent BRYCE Malignancy Medical History: Denies: Breast Cancer, Cervical Cancer, Leukemia, Ovarian Cancer Infectious Medical History: Denies: HIV Past Surgical History Past Surgical History: right ovary removal, bowel resection, hysterectomy Social History Smoking Status: Never Smoker Electronic Cigarette use?: No Hx Recreational Drug Use: No Hx Prescription Drug Abuse: No Family History Family History: CVA, DM, Hyperlipidemia, Hypertension Parental Family History Reviewed: Yes Children Family History Reviewed: Yes Sibling(s) Family History Reviewed.: Yes Medication/Allergy Home Medications: Estrogens,Conjugated [Premarin 1.25 mg Tablet] 1.25 mg PO DAILY #30 tablet 01/09 Ibuprofen [Motrin 800 mg Tablet] 800 mg PO Q8 #90 tablet 12/01/18 Oxycodone HCl/Acetaminophen [Percocet 5-325 mg Tablet] 1 tab PO Q6HP PRN #30 tablet 12/01/18 Allergies/Adverse Reactions: cinnamon Allergy (Verified 11/29/18 07:17) Physical Exam - Physical Exam Vital Signs: Temp Pulse Resp BP Pulse Ox 99.0 F 77 18 126/70 H 97 12/04/18 23:56 12/04/18 23:56 12/04/18 23:56 12/04/18 23:56 12/04/18 23:56 Intake & Output 12/03/18 12/04/18 12/05/18 06:59 06:59 06:59 Weight 56.7 kg General appearance: PRESENT: mild distress Head exam: PRESENT: atraumatic Neck exam: PRESENT: full ROM. ABSENT: carotid bruit, JVD, lymphadenopathy, thyromegaly Respiratory exam: PRESENT: symmetrical Cardiovascular exam: PRESENT: RRR. ABSENT: diastolic murmur, rubs, systolic murmur Pulses: PRESENT: normal dorsalis pedis pul, +2 pedal pulses bilateral Vascular exam: PRESENT: normal capillary refill GI/Abdominal exam: PRESENT: other Rectal exam: PRESENT: deferred Extremities exam: PRESENT: full ROM. ABSENT: calf tenderness, clubbing, pedal edema Musculoskeletal exam: PRESENT: ambulatory Neurological exam: PRESENT: alert, awake, oriented to person, oriented to place, oriented to time, oriented to situation, CN II-XII grossly intact. ABSENT: motor sensory deficit Result Laboratory Results: 12/04/18 20:03 12/04/18 20:03 12/04/18 12/04/18 12/04/18 20:03 20:03 20:43 WBC 9.0 RBC 3.93 Hgb 8.7 L Hct 27.8 L MCV 71 L MCH 22.1 L MCHC 31.2 L RDW 22.5 H Plt Count 259 Seg Neutrophils % 86.8 H Sodium 138.4 Potassium 4.0 Chloride 100 Carbon Dioxide 25 Anion Gap 13 BUN 7 Creatinine 0.62 Est GFR ( Amer) > 60 Glucose 91 Lactic Acid 1.6 Calcium 10.1 Total Bilirubin 0.3 AST 23 Alkaline Phosphatase 67 Total Protein 8.0 Albumin 4.5 Lipase 158.4 Urine Color Urine Appearance Urine pH Ur Specific [place] Urine Protein Urine Glucose (UA) Urine Ketones Urine Blood Urine Nitrite Ur Leukocyte Esterase Urine WBC (Auto) Urine RBC (Auto) 12/04/18 21:37 WBC RBC Hgb Hct MCV MCH MCHC RDW Plt Count Seg Neutrophils % Sodium Potassium Chloride Carbon Dioxide Anion Gap BUN Creatinine Est GFR ( Amer) Glucose Lactic Acid Calcium Total Bilirubin AST Alkaline Phosphatase Total Protein Albumin Lipase Urine Color STRAW Urine Appearance CLEAR Urine pH 7.0 Ur Specific [place] 1.008 Urine Protein NEGATIVE Urine Glucose (UA) NEGATIVE Urine Ketones 80 H Urine Blood NEGATIVE Urine Nitrite NEGATIVE Ur Leukocyte Esterase NEGATIVE Urine WBC (Auto) 0 Urine RBC (Auto) 1 Impressions: Abdomen/Pelvis CT 12/04/18 19:25 IMPRESSION: 1. Findings compatible with small bowel obstruction with transition point likely in the pelvis however it is not definitely identified on this study. The distal small bowel and colon are decompressed. 2. Moderate amount of free This exam was performed according to our departmental dose-optimization program, which includes automated exposure control, adjustment of the mA and/or kV according to patient size and/or use of iterative reconstruction technique. Assessment & Plan - Diagnosis (1) SBO (small bowel obstruction) Is this a current diagnosis for this admission?: Yes Plan: Plan bowel rest and NG tube, general surgery consult. - Plan Summary Plan Summary: Plan bowel rest and gen surg consult
[2018-12-05] MEDS: HYDROMORPHONE HCL INJ/PF 2 MG/ML AMPULE IV PRN ×5 (02:56→22:11)
--- NOTE | 2018-12-05 03:13 | PDOC CONSULTATION ---
Consultation Consult Date: 12/05/18 Attending physician:: KAMI MARTINEZ Provider Consulted: JACI SEPULVEDA Consult reason:: small bowel obstruction History of Present Illness Admission Date/PCP: 12/04/18 23:57 History of Present Illness: JAKE RED is a 33 year old female 33 y/o presenting to ED for evaluation of abdominal pain hysterectomy done Tuesday of last week by Dr Bernabe no fever or chills has had green vomit and decreased BM denies urinary pain denies blood in stool or emesis She has had multiple previous laparotomies for ovarian cysts and endometriosis and a previous small bowel obstruction jennieaffdella is feeling well until yesterday morning when she developed increasing abdominal distention nausea and vomiting Her acute abdominal pain started after she commenced vomiting. Past Medical History Malignancy Medical History: Denies: Breast Cancer, Cervical Cancer, Leukemia, Ovarian Cancer Hematology: Reports: Anemia - HX BLOOD TRANSFUSION Denies: Hemophilia, Sickle Cell Disease Infectious Medical History: Denies: HIV Past Surgical History Past Surgical History: Reports: Other - No previous laparotomies for ovarian cyst endometriosis or small bowel obst Denies: Appendectomy, Section, Cholecystectomy, Coronary Artery Bypass Graft, Gastric Bypass Surgery, Herniorrhaphy, Hysterectomy, Mastectomy, Pacemaker, Tonsillectomy, Tubal Ligation Social History Smoking Status: Never Smoker Electronic Cigarette use?: No Hx Recreational Drug Use: No Hx Prescription Drug Abuse: No Family History Family History: CVA, DM, Hyperlipidemia, Hypertension Parental Family History Reviewed: No Children Family History Reviewed: NA Sibling(s) Family History Reviewed.: NA Medication/Allergy Home Medications: Estrogens,Conjugated [Premarin 1.25 mg Tablet] 1.25 mg PO DAILY #30 tablet 12/01/18 Ibuprofen [Motrin 800 mg Tablet] 800 mg PO Q8 #90 tablet 12/01/18 Oxycodone HCl/Acetaminophen [Percocet 5-325 mg Tablet] 1 tab PO Q6HP PRN #30 tablet 12/01/18 Allergies/Adverse Reactions: cinnamon Allergy (Verified 11/29/18 07:17) Physical Exam Vital Signs: Temp Pulse Resp BP Pulse Ox 97.9 F 72 16 133/79 H 100 12/05/18 01:21 12/05/18 01:21 12/05/18 01:21 12/05/18 01:21 12/05/18 01:21 Intake & Output 12/03/18 12/04/18 12/05/18 06:59 06:59 06:59 Weight 56.7 kg General appearance: PRESENT: mild distress Head exam: PRESENT: normocephalic Eye exam: PRESENT: EOMI Ear exam: PRESENT: normal external ear exam Mouth exam: PRESENT: moist, other - Small 14 [address] NG is in place Neck exam: PRESENT: full ROM Respiratory exam: PRESENT: clear to auscultation sandy Cardiovascular exam: PRESENT: RRR Pulses: PRESENT: normal radial pulses, normal femoral pulses GI/Abdominal exam: PRESENT: other - Abdomen is diffusely distended phonetic some voluntary guarding there is no rebound tenderness or evidence of peritonitis Rectal exam: PRESENT: deferred Extremities exam: PRESENT: full ROM Musculoskeletal exam: PRESENT: full ROM Neurological exam: PRESENT: alert, awake, oriented to person, oriented to place Psychiatric exam: PRESENT: appropriate affect Skin exam: PRESENT: dry Results Laboratory Results: 12/04/18 20:03 12/04/18 20:03 12/04/18 12/04/18 12/04/18 20:03 20:03 20:43 WBC 9.0 RBC 3.93 Hgb 8.7 L Hct 27.8 L MCV 71 L MCH 22.1 L MCHC 31.2 L RDW 22.5 H Plt Count 259 Seg Neutrophils % 86.8 H Sodium 138.4 Potassium 4.0 Chloride 100 Carbon Dioxide 25 Anion Gap 13 BUN 7 Creatinine 0.62 Est GFR ( Amer) > 60 Glucose 91 Lactic Acid 1.6 Calcium 10.1 Total Bilirubin 0.3 AST 23 Alkaline Phosphatase 67 Total Protein 8.0 Albumin 4.5 Lipase 158.4 Urine Color Urine Appearance Urine pH Ur Specific [place] Urine Protein Urine Glucose (UA) Urine Ketones Urine Blood Urine Nitrite Ur Leukocyte Esterase Urine WBC (Auto) Urine RBC (Auto) 12/04/18 21:37 WBC RBC Hgb Hct MCV MCH MCHC RDW Plt Count Seg Neutrophils % Sodium Potassium Chloride Carbon Dioxide Anion Gap BUN Creatinine Est GFR ( Amer) Glucose Lactic Acid Calcium Total Bilirubin AST Alkaline Phosphatase Total Protein Albumin Lipase Urine Color STRAW Urine Appearance CLEAR Urine pH 7.0 Ur Specific [place] 1.008 Urine Protein NEGATIVE Urine Glucose (UA) NEGATIVE Urine Ketones 80 H Urine Blood NEGATIVE Urine Nitrite NEGATIVE Ur Leukocyte Esterase NEGATIVE Urine WBC (Auto) 0 Urine RBC (Auto) 1 Impressions: Abdomen/Pelvis CT 12/04/18 19:25 IMPRESSION: 1. Findings compatible with small bowel obstruction with transition point likely in the pelvis however it is not definitely identified on this study. The distal small bowel and colon are decompressed. 2. Moderate amount of free This exam was performed according to our departmental dose-optimization program, which includes automated exposure control, adjustment of the mA and/or kV according to patient size and/or use of iterative reconstruction technique. Assessment & Plan - Diagnosis (1) SBO (small bowel obstruction) Is this a current diagnosis for this admission?: Yes - Plan Summary Plan Summary: Impression is status post laparotomy for hysterectomy approximately 5 days ago. Now with increased abdominal distention and abdominal pain. CT scan shows diffusely distended small bowel loops with fluid levels there is no evidence of free air there is no evidence of significant free fluid consistent with intestinal leak. NG tube is been placed there is clear greenish fluid via the NG tube. White count is normal serum chemistries are normal serum lactate is 1.6 Recommendations to admit the patient to the hospital for IV fluids and observation with NG suction. Surgery will reassess in the morning and case will be discussed with Dr. Bernabe from [facility].
[2018-12-05] MEDS: PROMETHAZINE HCL INJ 25 MG/1 ML VIAL IV PRN ×2 (06:17→16:38)
--- NOTE | 2018-12-05 07:38 | PDOC PROGRESS REPORT ---
Subjective Progress Note for:: 12/05/18 Subjective:: pt c/o nausea Reason For Visit: SBO post BRYCE BS&O with small bowek obstrution Physical Exam - Physical Exam Vital Signs: Temp Pulse Resp BP Pulse Ox 99.1 F 73 16 129/65 H 100 12/05/18 07:18 12/05/18 07:18 12/05/18 07:18 12/05/18 07:18 12/05/18 07:18 Intake & Output 12/04/18 12/05/18 12/06/18 06:59 06:59 06:59 Intake Total 2000 Output Total 500 Balance 1500 Weight 63.8 kg General appearance: PRESENT: mild distress GI/Abdominal exam: PRESENT: soft Result Laboratory Results: 12/04/18 20:03 12/04/18 20:03 12/04/18 12/04/18 12/04/18 20:03 20:03 20:43 WBC 9.0 RBC 3.93 Hgb 8.7 L Hct 27.8 L MCV 71 L MCH 22.1 L MCHC 31.2 L RDW 22.5 H Plt Count 259 Seg Neutrophils % 86.8 H Sodium 138.4 Potassium 4.0 Chloride 100 Carbon Dioxide 25 Anion Gap 13 BUN 7 Creatinine 0.62 Est GFR ( Amer) > 60 Glucose 91 Lactic Acid 1.6 Calcium 10.1 Total Bilirubin 0.3 AST 23 Alkaline Phosphatase 67 Total Protein 8.0 Albumin 4.5 Lipase 158.4 Urine Color Urine Appearance Urine pH Ur Specific [place] Urine Protein Urine Glucose (UA) Urine Ketones Urine Blood Urine Nitrite Ur Leukocyte Esterase Urine WBC (Auto) Urine RBC (Auto) 12/04/18 21:37 WBC RBC Hgb Hct MCV MCH MCHC RDW Plt Count Seg Neutrophils % Sodium Potassium Chloride Carbon Dioxide Anion Gap BUN Creatinine Est GFR ( Amer) Glucose Lactic Acid Calcium Total Bilirubin AST Alkaline Phosphatase Total Protein Albumin Lipase Urine Color STRAW Urine Appearance CLEAR Urine pH 7.0 Ur Specific [place] 1.008 Urine Protein NEGATIVE Urine Glucose (UA) NEGATIVE Urine Ketones 80 H Urine Blood NEGATIVE Urine Nitrite NEGATIVE Ur Leukocyte Esterase NEGATIVE Urine WBC (Auto) 0 Urine RBC (Auto) 1 Impressions: Abdomen/Pelvis CT 12/04/18 19:25 IMPRESSION: 1. Findings compatible with small bowel obstruction with transition point likely in the pelvis however it is not definitely identified on this study. The distal small bowel and colon are decompressed. 2. Moderate amount of free This exam was performed according to our departmental dose-optimization program, which includes automated exposure control, adjustment of the mA and/or kV according to patient size and/or use of iterative reconstruction technique. Assessment & Plan - Diagnosis (1) SBO (small bowel obstruction) Is this a current diagnosis for this admission?: Yes - Time Time Spent with patient: Less than 15 minutes Medications reviewed and adjusted accordingly: Yes - Plan Summary Plan Summary: decompression of GI tract for now follow recomendations of surgery
[2018-12-05 10:56] LABS: ABSOLUTE EOSINOPHILS # (AUTO) 0.1 10^3/uL (0.0-0.6); ABSOLUTE LYMPHOCYTES (AUTO) 1.1 10^3/uL (0.5-4.7); ABSOLUTE MONOCYTES (AUTO) 0.9 10^3/uL (0.1-1.4); ABSOLUTE NEUT (AUTO) 3.8 10^3/uL (1.7-8.2); BASOPHILS % (AUTO) 0.3 % (0-2); HEMATOCRIT 21.7 % (36.0-47.0); LYMPHOCYTES % (AUTO) 19.1 % (13-45); MEAN CORPUSCULAR HEMOGLOBIN 22.6 pg (27.0-33.4); MEAN CORPUSCULAR HGB CONC 31.6 g/dL (32.0-36.0); MEAN CORPUSCULAR VOLUME 71 fl (80-97); MONOCYTES % (AUTO) 15.8 % (3-13); PLATELET COUNT 226 10^3/uL (150-450); RED BLOOD COUNT 3.04 10^6/uL (3.72-5.28); RED CELL DISTRIBUTION WIDTH 21.9 % (11.5-14.0); SEGMENTED NEUTROPHILS % (AUTO) 63.8 % (42-78); TOTAL CELLS COUNTED % (AUTO) 100 %
[2018-12-05 11:13] LABS: HEMOGLOBIN 6.9 g/dL (12.0-15.5)
[2018-12-05 11:17] LABS: ANION GAP 9 (5-19); BLOOD UREA NITROGEN 6 mg/dL (7-20); CALCIUM 8.7 mg/dL (8.4-10.2); CARBON DIOXIDE 26 mmol/L (22-30); CHLORIDE 103 mmol/L (98-107); GLUCOSE 81 mg/dL (75-110)
[2018-12-05] MEDS: RINGERS SOLUTION,LACTATED 1,000 ML IV PRN (12:06)
--- NOTE | 2018-12-05 13:04 | RADIOLOGY REPORT (SQ) ---
EXAM DESCRIPTION: KUB/ABDOMEN (SINGLE VIEW) COMPLETED DATE/TIME: 12/05/2018 12:45 pm REASON FOR STUDY: POSSIBLE BOWEL OBSTRUCTION COMPARISON: CT dated 12/04/2018. NUMBER OF VIEWS: One view. TECHNIQUE: Supine radiographic image of the abdomen acquired. LIMITATIONS: None. FINDINGS: BOWEL GAS PATTERN: Relative paucity of bowel gas. There are a few dilated loops of small bowel. CALCIFICATIONS: No suspicious calcifications. SOFT TISSUES: No gross mass or suggestion of organomegaly. HARDWARE: Nasogastric tube curled in the stomach. Surgical clips. BONES: No acute fracture. No worrisome bone lesions. OTHER: No other significant finding. IMPRESSION: RELATIVE PAUCITY OF BOWEL GAS. THERE ARE A FEW DILATED LOOPS OF SMALL BOWEL. WHEN COMP ARED TO THE PREVIOUS CT, THIS MOST LIKELY IS DUE TO OBSTRUCTION. TECHNICAL DOCUMENTATION: JOB ID: [id number] [employer]- All Rights Reserved Reading location - IP/workstation name: [email or web address]
--- NOTE | 2018-12-05 20:04 | RADIOLOGY REPORT (SQ) ---
EXAM DESCRIPTION: SMALL BOWEL SERIES COMPLETED DATE/TIME: 12/05/2018 7:49 pm REASON FOR STUDY: small bowel follow through with gastrografin COMPARISON: Earlier exam FLUOROSCOPY TIME: 8 images saved to PACS. LIMITATIONS: None. PROCEDURE: Initial hand former image of abdomen acquired, followed by administration of oral contrast. Se rial radiographic images acquired. Fluoroscopic images recorded of the terminal ileum and other hari cated areas. All images stored on PACS. 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 Contrast injection through NG tube shows opacification of the stomach and small bowel with filling of dilated loops seen on the hand former image. On the 4 hour image contrast has passed through the entirety of the small bowel and colon. OTHER: No other significant finding. IMPRESSION: No evidence for obstruction. COMMENT: Quality ID [id number]: Final reports for procedures using fluoroscopy that document radiation exp osure indices, or exposure time and number of fluorographic images (if radiation exposure indices are not available) TECHNICAL DOCUMENTATION: JOB ID: [id number] [place]-72 2010 [employer]- All Rights Reserved Reading location - IP/workstation name: [email or web address]
--- NOTE | 2018-12-05 20:56 | PDOC PROGRESS REPORT ---
Subjective Progress Note for:: 12/05/18 Subjective:: abdominal pains Denies flatus Reason For Visit: SBO Physical Exam Vital Signs: Temp Pulse Resp BP Pulse Ox 98.7 F 69 18 131/78 H 100 12/05/18 19:12 12/05/18 19:12 12/05/18 19:12 12/05/18 19:12 12/05/18 19:12 Intake & Output 12/04/18 12/05/18 12/06/18 06:59 06:59 06:59 Intake Total 2000 300 Output Total 500 1530 Balance 1500 -1230 Weight 63.8 kg Exam: abdomen mildly distended but soft . NGT repositioned Results Laboratory Results: 12/05/18 10:20 12/05/18 10:20 12/04/18 12/04/18 12/05/18 20:43 21:37 10:20 WBC 6.0 RBC 3.04 L Hgb 6.9 L Hct 21.7 L MCV 71 L MCH 22.6 L MCHC 31.6 L RDW 21.9 H Plt Count 226 Seg Neutrophils % 63.8 Sodium Potassium Chloride Carbon Dioxide Anion Gap BUN Creatinine Est GFR ( Amer) Glucose Lactic Acid 1.6 Calcium Urine Color STRAW Urine Appearance CLEAR Urine pH 7.0 Ur Specific [place] 1.008 Urine Protein NEGATIVE Urine Glucose (UA) NEGATIVE Urine Ketones 80 H Urine Blood NEGATIVE Urine Nitrite NEGATIVE Ur Leukocyte Esterase NEGATIVE Urine WBC (Auto) 0 Urine RBC (Auto) 1 Blood Type Antibody Screen 12/05/18 12/05/18 10:20 12:25 WBC RBC Hgb Hct MCV MCH MCHC RDW Plt Count Seg Neutrophils % Sodium 137.8 Potassium 4.0 Chloride 103 Carbon Dioxide 26 Anion Gap 9 BUN 6 L Creatinine 0.65 Est GFR ( Amer) > 60 Glucose 81 Lactic Acid Calcium 8.7 Urine Color Urine Appearance Urine pH Ur Specific [place] Urine Protein Urine Glucose (UA) Urine Ketones Urine Blood Urine Nitrite Ur Leukocyte Esterase Urine WBC (Auto) Urine RBC (Auto) Blood Type O NEGATIVE Antibody Screen NEGATIVE Impressions: Abdomen/Pelvis CT 12/04/18 19:25 IMPRESSION: 1. Findings compatible with small bowel obstruction with transition point likely in the pelvis however it is not definitely identified on this study. The distal small bowel and colon are decompressed. 2. Moderate amount of free This exam was performed according to our departmental dose-optimization program, which includes automated exposure control, adjustment of the mA and/or kV according to patient size and/or use of iterative reconstruction technique. Small Bowel X-Ray 12/05/18 00:00 IMPRESSION: No evidence for obstruction. KUB X-Ray 12/05/18 12:00 IMPRESSION: RELATIVE PAUCITY OF BOWEL GAS. THERE ARE A FEW DILATED LOOPS OF SMALL BOWEL. WHEN COMPARED TO THE PREVIOUS CT, THIS MOST LIKELY IS DUE TO OBSTRUCTION. Assessment & Plan - Diagnosis (1) SBO (small bowel obstruction) Is this a current diagnosis for this admission?: Yes - Time Time Spent with patient: 15-24 minutes - Inpatient Certification Medical Necessity: Need For IV Fluids - Plan Summary Plan Summary: Patient apparently doing well post hysterectomy but yesterday afternoon suddenly c/o abdominal pains. Ordered SBFT today which showed no obstruction. Possible d/c NGT but keep NPO tonight if no flatus/BM yet.
[2018-12-06] MEDS: HYDROMORPHONE HCL INJ/PF 2 MG/ML AMPULE IV PRN ×6 (01:13→21:34)
--- NOTE | 2018-12-06 08:27 | PDOC PROGRESS REPORT ---
Subjective Progress Note for:: 12/06/18 Subjective:: mild abdominal pains. Feeling much better with BM and small amount of flatus Reason For Visit: SBO Physical Exam Vital Signs: Temp Pulse Resp BP Pulse Ox 98.0 F 65 16 125/73 100 12/06/18 04:00 12/06/18 04:00 12/06/18 04:00 12/06/18 04:00 12/06/18 04:00 Intake & Output 12/05/18 12/06/18 12/07/18 06:59 06:59 06:59 Intake Total 2000 600 Output Total 500 1530 Balance 1500 -930 Weight 63.8 kg Exam: abdomen less distended with mild diffuse tenderness. NGT just drained about 150 ccs but mostly ice chips(light yellowish fluid in NGT) Results Laboratory Results: 12/05/18 10:20 12/05/18 10:20 12/05/18 12/05/18 12/05/18 10:20 10:20 12:25 WBC 6.0 RBC 3.04 L Hgb 6.9 L Hct 21.7 L MCV 71 L MCH 22.6 L MCHC 31.6 L RDW 21.9 H Plt Count 226 Seg Neutrophils % 63.8 Sodium 137.8 Potassium 4.0 Chloride 103 Carbon Dioxide 26 Anion Gap 9 BUN 6 L Creatinine 0.65 Est GFR ( Amer) > 60 Glucose 81 Calcium 8.7 Blood Type O NEGATIVE Antibody Screen NEGATIVE Impressions: Abdomen/Pelvis CT 12/04/18 19:25 IMPRESSION: 1. Findings compatible with small bowel obstruction with transition point likely in the pelvis however it is not definitely identified on this study. The distal small bowel and colon are decompressed. 2. Moderate amount of free This exam was performed according to our departmental dose-optimization program, which includes automated exposure control, adjustment of the mA and/or kV according to patient size and/or use of iterative reconstruction technique. Small Bowel X-Ray 12/05/18 00:00 IMPRESSION: No evidence for obstruction. KUB X-Ray 12/05/18 12:00 IMPRESSION: RELATIVE PAUCITY OF BOWEL GAS. THERE ARE A FEW DILATED LOOPS OF SMALL BOWEL. WHEN COMPARED TO THE PREVIOUS CT, THIS MOST LIKELY IS DUE TO OBSTR UCTION. Assessment & Plan - Diagnosis (1) SBO (small bowel obstruction) Is this a current diagnosis for this admission?: Yes - Time Time Spent with patient: 15-24 minutes - Inpatient Certification Medical Necessity: Need For IV Fluids, Risk of Complication if Not Cared For in Hospital - Plan Summary Plan Summary: SBFT showed no obstruction Plan: Will observe this am and monitor NGT drainage prior to D/C NGT. Apparently had a tough time placing NGT in the ER yesterday am. Check CBC and lytes
[2018-12-06] MEDS: KETOROLAC TROMETHAMINE INJ/PF 30 MG/1 ML SDV IV SCH ×3 (08:57→21:07)
[2018-12-06] MEDS: ACETAMINOPHEN 1,000 MG/100 ML RTUPB IV PRN ×2 (10:07→16:37)
[2018-12-06] MEDS ORDERED: HYDROMORPHONE HCL INJ/PF 2 MG/ML AMPULE ONE (10:16)
[2018-12-06 11:11] LABS: ABSOLUTE BASOPHILS # (AUTO) 0.1 10^3/uL (0.0-0.2); ABSOLUTE EOSINOPHILS # (AUTO) 0.1 10^3/uL (0.0-0.6); ABSOLUTE LYMPHOCYTES (AUTO) 1.3 10^3/uL (0.5-4.7); ABSOLUTE MONOCYTES (AUTO) 1.3 10^3/uL (0.1-1.4); BASOPHILS % (AUTO) 0.5 % (0-2); EOSINOPHILS % (AUTO) 0.5 % (0-6); HEMATOCRIT 30.3 % (36.0-47.0); LYMPHOCYTES % (AUTO) 11.7 % (13-45); MEAN CORPUSCULAR HEMOGLOBIN 24.8 pg (27.0-33.4); MEAN CORPUSCULAR HGB CONC 32.5 g/dL (32.0-36.0); PLATELET COUNT 244 10^3/uL (150-450); RED BLOOD COUNT 3.98 10^6/uL (3.72-5.28); RED CELL DISTRIBUTION WIDTH 22.5 % (11.5-14.0); SEGMENTED NEUTROPHILS % (AUTO) 75.3 % (42-78); TOTAL CELLS COUNTED % (AUTO) 100 %; WHITE BLOOD COUNT 10.7 10^3/uL (4.0-10.5)
[2018-12-06 11:14] LABS: HEMOGLOBIN 9.9 g/dL (12.0-15.5); MEAN CORPUSCULAR VOLUME 76 fl (80-97)
[2018-12-06 11:19] LABS: ANION GAP 11 (5-19); BLOOD UREA NITROGEN 9 mg/dL (7-20); CALCIUM 9.5 mg/dL (8.4-10.2); CARBON DIOXIDE 26 mmol/L (22-30); CHLORIDE 105 mmol/L (98-107); GLUCOSE 80 mg/dL (75-110); POTASSIUM 4.3 mmol/L (3.6-5.0)
--- NOTE | 2018-12-06 11:57 | PDOC PROGRESS REPORT ---
Subjective Progress Note for:: 12/06/18 Subjective:: Feeling somewhat better presently. She had a BM with looose stool, no blood. Passing some gas and states her belly does not feel as tight now. She has taken ice chips. NGT to intermittent low suction. Denies f/c. No vaginal bleeding.She endorses pain overnight that was severe and controled with dilaudid only. She tried to switch to Toradol this am but required dilaudid for a painful episode later in the morning. Currently she rates pain 2/10 in lower abodmen. Reason For Visit: SBO Physical Exam - Physical Exam Vital Signs: Temp Pulse Resp BP Pulse Ox 98.2 F 63 16 117/73 100 12/06/18 11:40 12/06/18 11:40 12/06/18 11:40 12/06/18 11:40 12/06/18 11:40 Intake & Output 12/05/18 12/06/18 12/07/18 06:59 06:59 06:59 Intake Total 2000 600 100 Output Total 500 1530 Balance 1500 -930 100 Weight 63.8 kg General appearance: PRESENT: no acute distress, cooperative Respiratory exam: PRESENT: clear to auscultation sandy Cardiovascular exam: PRESENT: RRR, +S1, +S2 GI/Abdominal exam: PRESENT: distended - Can press in about 2 cm on and release with no worsening of pain. Dressing dry and intact, hypoactive bowel sounds Neurological exam: PRESENT: alert, awake Psychiatric exam: PRESENT: appropriate affect Skin exam: PRESENT: dry, warm Result Laboratory Results: 12/06/18 10:23 12/06/18 10:23 12/05/18 12/06/18 12/06/18 12:25 10:23 10:23 WBC 10.7 H RBC 3.98 Hgb 9.9 L D Hct 30.3 L MCV 76 L D MCH 24.8 L MCHC 32.5 RDW 22.5 H Plt Count 244 Seg Neutrophils % 75.3 Sodium 142.1 Potassium 4.3 Chloride 105 Carbon Dioxide 26 Anion Gap 11 BUN 9 Creatinine 0.59 Est GFR ( Amer) > 60 Glucose 80 Calcium 9.5 Blood Type O NEGATIVE Antibody Screen NEGATIVE Impressions: Abdomen/Pelvis CT 12/04/18 19:25 IMPRESSION: 1. Findings compatible with small bowel obstruction with transition point likely in the pelvis however it is not definitely identified on this study. The distal small bowel and colon are decompressed. 2. Moderate amount of free This exam was performed according to our departmental dose-optimization program, which includes automated exposure control, adjustment of the mA and/or kV according to patient size and/or use of iterative reconstruction technique. Small Bowel X-Ray 12/05/18 00:00 IMPRESSION: No evidence for obstruction. KUB X-Ray 12/05/18 12:00 IMPRESSION: RELATIVE PAUCITY OF BOWEL GAS. THERE ARE A FEW DILATED LOOPS OF SMALL BOWEL. WHEN COMPARED TO THE PREVIOUS CT, THIS MOST LIKELY IS DUE TO OBSTRUCTION. Assessment & Plan - Diagnosis (1) SBO (small bowel obstruction) Is this a current diagnosis for this admission?: Yes (2) Anemia, blood loss Is this a current diagnosis for this admission?: Yes (4) Pain at surgical incision Is this a current diagnosis for this admission?: Yes - Time Time Spent with patient: 15-24 minutes Medications reviewed and adjusted accordingly: Yes Disposition: Stable Continue current care Pain management with PRN medication as needed. GI advancement per surgery recommendations. Hgb stable today COntinue out of bed as tolerating
[2018-12-06] MEDS: RINGERS SOLUTION,LACTATED 1,000 ML IV PRN ×2 (13:53→22:38)
[2018-12-07] MEDS: LORAZEPAM INJ 2 MG/1 ML VIAL IV PRN (00:07)
[2018-12-07] MEDS: HYDROMORPHONE HCL INJ/PF 2 MG/ML AMPULE IV PRN ×2 (02:28→06:34)
[2018-12-07] MEDS: KETOROLAC TROMETHAMINE INJ/PF 30 MG/1 ML SDV IV SCH ×4 (03:45→20:29)
[2018-12-07] MEDS: ACETAMINOPHEN 1,000 MG/100 ML RTUPB IV PRN ×3 (04:26→18:50)
[2018-12-07] MEDS: PROMETHAZINE HCL INJ 25 MG/1 ML VIAL IV PRN ×2 (05:18→14:32)
[2018-12-07] MEDS: RINGERS SOLUTION,LACTATED 1,000 ML IV PRN ×3 (05:35→23:22)
--- NOTE | 2018-12-07 10:12 | PDOC PROGRESS REPORT ---
Subjective Progress Note for:: 12/07/18 Subjective:: Patient continues to require Dilaudid [id number], as well as IV Toradol and IV acetaminophen. She has not moved much, and minimal ambulation Reason For Visit: SBO Physical Exam Vital Signs: Temp Pulse Resp BP Pulse Ox 99.5 F 100 18 136/75 H 100 12/07/18 08:00 12/07/18 08:00 12/07/18 08:00 12/07/18 08:00 12/07/18 08:00 Intake & Output 12/06/18 12/07/18 12/08/18 06:59 06:59 06:59 Intake Total 1600 2200 Output Total 1530 550 Balance 70 1650 Weight 63.8 kg General appearance: PRESENT: other - Sleeping, almost unarousable. GI/Abdominal exam: PRESENT: other - The abdomen is somewhat distended; tender; difficult to examine due to patient grimacing in inability to lay flat Results Laboratory Results: 12/06/18 10:23 12/06/18 10:23 12/06/18 12/06/18 10:23 10:23 WBC 10.7 H RBC 3.98 Hgb 9.9 L D Hct 30.3 L MCV 76 L D MCH 24.8 L MCHC 32.5 RDW 22.5 H Plt Count 244 Seg Neutrophils % 75.3 Sodium 142.1 Potassium 4.3 Chloride 105 Carbon Dioxide 26 Anion Gap 11 BUN 9 Creatinine 0.59 Est GFR ( Amer) > 60 Glucose 80 Calcium 9.5 Impressions: Abdomen/Pelvis CT 12/04/18 19:25 IMPRESSION: 1. Findings compatible with small bowel obstruction with transition point likely in the pelvis however it is not definitely identified on this study. The distal small bowel and colon are decompressed. 2. Moderate amount of free This exam was performed according to our departmental dose-optimization program, which includes automated exposure control, adjustment of the mA and/or kV according to patient size and/or use of iterative reconstruction technique. Small Bowel X-Ray 12/05/18 00:00 IMPRESSION: No evidence for obstruction. KUB X-Ray 12/05/18 12:00 IMPRESSION: RELATIVE PAUCITY OF BOWEL GAS. THERE ARE A FEW DILATED LOOPS OF SMALL BOWEL. WHEN COMPARED TO THE PREVIOUS CT, THIS MOST LIKELY IS DUE TO OBSTRUCTION. Assessment & Plan - Diagnosis (1) SBO (small bowel obstruction) Is this a current diagnosis for this admission?: Yes Plan: IMpression: Partial small bowel obstruction ruled out by upper GI series showing passage of contrast into the colon at 4 hours; suspect abdominal pain and distention due to persisting ileus; narcotics [id number] not helping promote GI motility. Recommendations: 1. I spoke to patient, nursing staff, and Dr. Bernabe, welder apprentice today. We need to cut the narcotics out or her bowels will not recover. We explained to the patient. 2. We will discontinue narcotics, continue IV acetaminophen and IV Toradol, encourage her to get up, get a shower. 3. We will continue to follow patient with you. - Time Time Spent with patient: 15-24 minutes
[2018-12-07] MEDS ORDERED: GUAIFENESIN SYRP 200 MG/10 ML UDC PO PRN (16:21)
[2018-12-08] MEDS: KETOROLAC TROMETHAMINE INJ/PF 30 MG/1 ML SDV IV SCH ×4 (03:27→22:15)
[2018-12-08] MEDS: RINGERS SOLUTION,LACTATED 1,000 ML IV PRN ×2 (06:30→17:06)
--- NOTE | 2018-12-08 08:24 | PDOC PROGRESS REPORT ---
Subjective Progress Note for:: 12/08/18 Subjective:: Less pains. Has BM and flatus Hungry Tolerating clears Reason For Visit: SBO Physical Exam Vital Signs: Temp Pulse Resp BP Pulse Ox 98.4 F 63 16 121/63 100 12/08/18 03:40 12/08/18 03:40 12/08/18 03:40 12/08/18 03:40 12/08/18 03:40 Intake & Output 12/07/18 12/08/18 12/09/18 06:59 06:59 06:59 Intake Total 2300 3580 Output Total 550 Balance 1750 3580 Weight 63.8 kg 63.8 kg Exam: Abdomen is soft with mild lower abdominal tenderness Results Laboratory Results: 12/06/18 10:23 12/06/18 10:23 Impressions: Abdomen/Pelvis CT 12/04/18 19:25 IMPRESSION: 1. Findings compatible with small bowel obstruction with transition point likely in the pelvis however it is not definitely identified on this study. The distal small bowel and colon are decompressed. 2. Moderate amount of free This exam was performed according to our departmental dose-optimization program, which includes automated exposure control, adjustment of the mA and/or kV according to patient size and/or use of iterative reconstruction technique. Small Bowel X-Ray 12/05/18 00:00 IMPRESSION: No evidence for obstruction. KUB X-Ray 12/05/18 12:00 IMPRESSION: RELATIVE PAUCITY OF BOWEL GAS. THERE ARE A FEW DILATED LOOPS OF SMALL BOWEL. WHEN COMPARED TO THE PREVIOUS CT, THIS MOST LIKELY IS DUE TO OBSTRUCTION. Assessment & Plan - Diagnosis (1) SBO (small bowel obstruction) Is this a current diagnosis for this admission?: Yes (2) ileus post lysis of adhesions and BRYCE Is this a current diagnosis for this admission?: Yes - Time Time Spent with patient: 15-24 minutes - Inpatient Certification Medical Necessity: Need For IV Fluids, Need for Pain Control - Plan Summary Plan Summary: Increase diet to full liquids and advance to soft as tolerated OK to discharge when tolerating regular diet well
--- NOTE | 2018-12-08 10:03 | PDOC PROGRESS REPORT ---
Subjective Progress Note for:: 12/08/18 Subjective:: She is in a lot of pain today. Reason For Visit: SBO Physical Exam - Physical Exam Vital Signs: Temp Pulse Resp BP Pulse Ox 99.1 F 61 16 132/76 H 100 12/08/18 08:00 12/08/18 08:00 12/08/18 08:00 12/08/18 08:00 12/08/18 08:00 Intake & Output 12/07/18 12/08/18 12/09/18 06:59 06:59 06:59 Intake Total 2300 3580 Output Total 550 Balance 1750 3580 Weight 63.8 kg 63.8 kg General appearance: PRESENT: thin GI/Abdominal exam: PRESENT: distended, rigid Result Laboratory Results: 12/06/18 10:23 12/06/18 10:23 Impressions: Abdomen/Pelvis CT 12/04/18 19:25 IMPRESSION: 1. Findings compatible with small bowel obstruction with transition point likely in the pelvis however it is not definitely identified on this study. The distal small bowel and colon are decompressed. 2. Moderate amount of free This exam was performed according to our departmental dose-optimization program, which includes automated exposure control, adjustment of the mA and/or kV according to patient size and/or use of iterative reconstruction technique. Small Bowel X-Ray 12/05/18 00:00 IMPRESSION: No evidence for obstruction. KUB X-Ray 12/05/18 12:00 IMPRESSION: RELATIVE PAUCITY OF BOWEL GAS. THERE ARE A FEW DILATED LOOPS OF SMALL BOWEL. WHEN COMPARED TO THE PREVIOUS CT, THIS MOST LIKELY IS DUE TO OBSTRUCTION. Assessment & Plan - Diagnosis (1) SBO (small bowel obstruction) Is this a current diagnosis for this admission?: Yes - Time Time Spent with patient: 15-24 minutes - Plan Summary Plan Summary: Will check another CT scan. Discussed with Dr Tatum.
[2018-12-08] MEDS ORDERED: HYDROMORPHONE HCL INJ/PF 2 MG/ML AMPULE IV ONE ×2 (10:14→23:30)
[2018-12-08] MEDS ORDERED: HYDROMORPHONE HCL INJ/PF 2 MG/ML AMPULE ONE (10:15)
[2018-12-08 10:58] LABS: ABSOLUTE LYMPHOCYTES (AUTO) 0.9 10^3/uL (0.5-4.7); ABSOLUTE MONOCYTES (AUTO) 0.9 10^3/uL (0.1-1.4); ABSOLUTE NEUT (AUTO) 8.2 10^3/uL (1.7-8.2); BASOPHILS % (AUTO) 0.2 % (0-2); EOSINOPHILS % (AUTO) 0.5 % (0-6); HEMATOCRIT 26.4 % (36.0-47.0); HEMOGLOBIN 8.5 g/dL (12.0-15.5); LYMPHOCYTES % (AUTO) 8.5 % (13-45); MEAN CORPUSCULAR HEMOGLOBIN 24.9 pg (27.0-33.4); MEAN CORPUSCULAR HGB CONC 32.2 g/dL (32.0-36.0); MEAN CORPUSCULAR VOLUME 77 fl (80-97); MONOCYTES % (AUTO) 9.3 % (3-13); PLATELET COUNT 228 10^3/uL (150-450); RED BLOOD COUNT 3.43 10^6/uL (3.72-5.28); RED CELL DISTRIBUTION WIDTH 22.9 % (11.5-14.0); SEGMENTED NEUTROPHILS % (AUTO) 81.5 % (42-78); TOTAL CELLS COUNTED % (AUTO) 100 %; WHITE BLOOD COUNT 10.1 10^3/uL (4.0-10.5)
[2018-12-08 11:21] LABS: ANION GAP 10 (5-19); BLOOD UREA NITROGEN 4 mg/dL (7-20); CALCIUM 8.8 mg/dL (8.4-10.2); CARBON DIOXIDE 25 mmol/L (22-30); CHLORIDE 104 mmol/L (98-107); GLUCOSE 82 mg/dL (75-110); POTASSIUM 3.5 mmol/L (3.6-5.0)
--- NOTE | 2018-12-08 13:49 | RADIOLOGY REPORT (SQ) ---
EXAM DESCRIPTION: CT ABD/PELVIS WITH IV ORAL COMPLETED DATE/TIME: 12/08/2018 1:21 pm REASON FOR STUDY: small bowel obstruction COMPARISON: 12/04/2018. TECHNIQUE: CT scan of the abdomen and pelvis performed using helical scanning technique with dynamic intravenous contrast injection. No oral contrast. Images reviewed with lung, soft tissue, and bone windows. Reconstructed coronal and sagittal MPR images reviewed. Delayed images for evaluation of the urinary system also acquired. All images stored on PACS. All CT scanners at this facility use dose modulation, iterative reconstruction, and/or weight based d osing when appropriate to reduce radiation dose to as low as reasonably achievable (ALARA). [facility]: Dose Right [facility]: CareDose [facility]: Dose Right [facility]: Teradose 4D [facility]: [employer] CONTRAST TYPE AND DOSE: contrast/concentration: Isovue 350.00 mg/ml; Total Contrast Delivered: 73.0 ml; Total Saline Delivered: 66.0 ml RENAL FUNCTION: BUN 9 creatinine 0.59. RADIATION DOSE: CT Rad equipment meets quality standard of care and radiation dose reduction techniq ues were employed. CTDIvol: 3.1 - 3.6 mGy. DLP: 319 mGy-cm.. LIMITATIONS: None. FINDINGS: LOWER CHEST: No significant findings. No nodules or infiltrates. LIVER: Normal size. No masses. No dilated ducts. SPLEEN: Normal size. No focal lesions. PANCREAS: No masses. No significant calcifications. No adjacent inflammation or peripancreatic fluid collections. Pancreatic duct not dilated. GALLBLADDER: No identified stones by CT criteria. No inflammatory changes to suggest cholecystitis. ADRENAL GLANDS: No significant masses or asymmetry. RIGHT KIDNEY AND URETER: No solid masses. No significant calcifications. No hydronephrosis or hyd roureter. LEFT KIDNEY AND URETER: No solid masses. No significant calcifications. No hydronephrosis or hydr oureter. AORTA AND VESSELS: No aneurysm. No dissection. Renal arteries, SMA, celiac without stenosis. RETROPERITONEUM: No retroperitoneal adenopathy, hemorrhage or masses. BOWEL AND PERITONEAL CAVITY: Diffuse small bowel dilation. Contrast present in the proximal small ministerio wel. No contrast in the distal small bowel or colon. There is an irregular fluid collection in the lower pelvis (axial series 2, image 62). There are few bubbles of gas within this fluid. This is lo cated immediately anterior to the on opacified rectum. APPENDIX: Not visualized. PELVIS: No mass. No free fluid. Normal bladder. ABDOMINAL WALL: No masses. No hernias. BONES: No significant or acute findings. OTHER: No other significant finding. IMPRESSION: 1. DIFFUSE SMALL BOWEL DILATION WITH CONTRAST PRESENT ONLY IN THE PROXIMAL SMALL BOWEL. CONSISTENT W ITH HIGH-GRADE ILEUS VERSUS DISTAL OBSTRUCTION. 2. IRREGULAR FLUID COLLECTION IN THE LOWER PELVIS. DUE TO THE NON-OPACIFIED BOWEL LOOPS, CANNOT DETE RMINE IF THIS REPRESENTS AN ABSCESS VERSUS A LOOP OF BOWEL OR SIGMOID COLON. OBTAINING A REPEAT CT I N A FEW HOURS MAY BE CONSIDERED TO DETERMINE IF THERE IS ENOUGH CONTRAST PASSING INTO THE DISTAL SIDDHARTH L AND COLON TO DELINEATE THIS FLUID COLLECTION. CT OF THE PELVIS WITH DILUTE RECTAL CONTRAST MAY BE ANOTHER ALTERNATIVE IF CLINICALLY INDICATED. IF THIS FLUID COLLECTION IS RELATED TO AN ABSCESS, THE CURRENT LOCATION IS NOT AMENABLE TO PERCUTANEOUS DRAINAGE. 3. NO OTHER SIGNIFICANT OR ACUTE FINDING IN THE ABDOMEN OR PELVIS ON CT SCAN WITH IV CONTRAST. TECHNICAL DOCUMENTATION: JOB ID: [id number] Quality ID # [id number]: Final reports with documentation of one or more dose reduction techniques (e.g., Au tomated exposure control, adjustment of the mA and/or kV according to patient size, use of iterative reconstruction technique) 2010 [employer]- All Rights Reserved Reading location - IP/workstation name: [email or web address]
[2018-12-08] MEDS: ACETAMINOPHEN 1,000 MG/100 ML RTUPB IV PRN (17:09)
[2018-12-08] MEDS ORDERED: POTASSIUM CHLORIDE 10 MEQ CAPSULE.ER PO ONE (18:00)
[2018-12-09] MEDS: PROMETHAZINE HCL INJ 25 MG/1 ML VIAL IV PRN ×3 (01:34→22:08)
[2018-12-09] MEDS ORDERED: ACETAMINOPHEN 2,000 MG/200 ML RTUPB IV ONE (01:36)
[2018-12-09] MEDS: KETOROLAC TROMETHAMINE INJ/PF 30 MG/1 ML SDV IV SCH (05:30)
[2018-12-09 08:27] LABS: ABSOLUTE BASOPHILS # (AUTO) 0.1 10^3/uL (0.0-0.2); ABSOLUTE EOSINOPHILS # (AUTO) 0.1 10^3/uL (0.0-0.6); ABSOLUTE LYMPHOCYTES (AUTO) 1.1 10^3/uL (0.5-4.7); ABSOLUTE MONOCYTES (AUTO) 0.8 10^3/uL (0.1-1.4); ABSOLUTE NEUT (AUTO) 6.8 10^3/uL (1.7-8.2); BASOPHILS % (AUTO) 0.8 % (0-2); EOSINOPHILS % (AUTO) 0.8 % (0-6); HEMATOCRIT 24.7 % (36.0-47.0); HEMOGLOBIN 8.1 g/dL (12.0-15.5); LYMPHOCYTES % (AUTO) 12.9 % (13-45); MEAN CORPUSCULAR HGB CONC 32.9 g/dL (32.0-36.0); MEAN CORPUSCULAR VOLUME 76 fl (80-97); MONOCYTES % (AUTO) 9.5 % (3-13); PLATELET COUNT 238 10^3/uL (150-450); RED BLOOD COUNT 3.25 10^6/uL (3.72-5.28); RED CELL DISTRIBUTION WIDTH 22.4 % (11.5-14.0); TOTAL CELLS COUNTED % (AUTO) 100 %; WHITE BLOOD COUNT 8.9 10^3/uL (4.0-10.5)
[2018-12-09 08:43] LABS: ANION GAP 8 (5-19); BLOOD UREA NITROGEN 2 mg/dL (7-20); CALCIUM 8.4 mg/dL (8.4-10.2); CARBON DIOXIDE 25 mmol/L (22-30); CHLORIDE 104 mmol/L (98-107); GLUCOSE 85 mg/dL (75-110); POTASSIUM 3.8 mmol/L (3.6-5.0)
[2018-12-09] MEDS ORDERED: HYDROMORPHONE HCL INJ/PF 2 MG/ML AMPULE ONE (08:45)
[2018-12-09] MEDS: POTASSI CL 20 MEQ/D5-1/2NS 1L 1000 ML IV PRN (10:46)
[2018-12-09] MEDS: FAMOTIDINE 20 MG TABLET PO SCH ×2 (10:46→22:07)
[2018-12-09] MEDS ORDERED: IBUPROFEN 800 MG TABLET PO SCH (14:00)
--- NOTE | 2018-12-09 14:43 | PDOC PROGRESS REPORT ---
Subjective Progress Note for:: 12/09/18 Subjective:: Still with BM more formed.No pains today.Hungry Reason For Visit: SBO Physical Exam Vital Signs: Temp Pulse Resp BP Pulse Ox 98.1 F 75 16 123/81 100 12/09/18 11:57 12/09/18 11:57 12/09/18 11:57 12/09/18 11:57 12/09/18 11:57 Intake & Output 12/08/18 12/09/18 12/10/18 06:59 06:59 06:59 Intake Total 3580 1200 Balance 3580 1200 Weight 63.8 kg Exam: ABDOMEN IS SOFT AND NON TENDER Results Laboratory Results: 12/09/18 07:41 12/09/18 07:41 12/09/18 12/09/18 07:41 07:41 WBC 8.9 RBC 3.25 L Hgb 8.1 L Hct 24.7 L MCV 76 L MCH 25.0 L MCHC 32.9 RDW 22.4 H Plt Count 238 Seg Neutrophils % 76.0 Sodium 137.4 Potassium 3.8 Chloride 104 Carbon Dioxide 25 Anion Gap 8 BUN 2 L Creatinine 0.52 Est GFR ( Amer) > 60 Glucose 85 Calcium 8.4 Impressions: Small Bowel X-Ray 12/05/18 00:00 IMPRESSION: No evidence for obstruction. KUB X-Ray 12/05/18 12:00 IMPRESSION: RELATIVE PAUCITY OF BOWEL GAS. THERE ARE A FEW DILATED LOOPS OF SMALL BOWEL. WHEN COMPARED TO THE PREVIOUS CT, THIS MOST LIKELY IS DUE TO OBSTRUCTION. Abdomen/Pelvis CT 12/08/18 00:00 IMPRESSION: 1. DIFFUSE SMALL BOWEL DILATION WITH CONTRAST PRESENT ONLY IN THE PROXIMAL SMALL BOWEL. CONSISTENT WITH HIGH-GRADE ILEUS VERSUS DISTAL OBSTRUCTION. 2. IRREGULAR FLUID COLLECTION IN THE LOWER PELVIS. DUE TO THE NON-OPACIFIED BOWEL LOOPS, CANNOT DETERMINE IF THIS REPRESENTS AN ABSCESS VERSUS A LOOP OF BOWEL OR SIGMOID COLON. OBTAINING A REPEAT CT IN A FEW HOURS MAY BE CONSIDERED TO DETERMINE IF THERE IS ENOUGH CONTRAST PASSING INTO THE DISTAL BOWEL AND COLON TO DELINEATE THIS FLUID COLLECTION. CT OF THE PELVIS WITH DILUTE RECTAL CONTRAST MAY BE ANOTHER ALTERNATIVE IF CLINICALLY INDICATED. IF THIS FLUID COLLECTION IS RELATED TO AN ABSCESS, THE CURRENT LOCATION IS NOT AMENABLE TO PERCUTANEOUS DRAINAGE. 3. NO OTHER SIGNIFICANT OR ACUTE FINDING IN THE ABDOMEN OR PELVIS ON CT SCAN WITH IV CONTRAST. Assessment & Plan - Diagnosis (1) SBO (small bowel obstruction) Is this a current diagnosis for this admission?: Yes (2) ileus post lysis of adhesions and BRYCE Is this a current diagnosis for this admission?: Yes - Time Time Spent with patient: 15-24 minutes - Inpatient Certification Medical Necessity: Need For IV Fluids, Risk of Complication if Not Cared For in Hospital - Plan Summary Plan Summary: CT scan yesterday showed no obstruction and the pelvic fluid likely due to hematoma. Plan: Start soft diet and if tolerates can be discharge. We can follow her in the surgical clinic.
--- NOTE | 2018-12-09 15:55 | PDOC PROGRESS REPORT ---
Subjective Progress Note for:: 12/09/18 Subjective:: Feeling somewhat better presently. She had an epidsode of pain this am but much better after 1/2 mg dilaudid IV. Currently she rates pain 2/10 in lower abodmen. She is having BM with soft formed stool, no blood. Passing gas. Eating soft foods. Denies f/c. No vaginal bleeding. Reason For Visit: SBO Physical Exam - Physical Exam Vital Signs: Temp Pulse Resp BP Pulse Ox 98.1 F 75 16 123/81 100 12/09/18 11:57 12/09/18 11:57 12/09/18 11:57 12/09/18 11:57 12/09/18 11:57 Intake & Output 12/08/18 12/09/18 12/10/18 06:59 06:59 06:59 Intake Total 3580 1200 Balance 3580 1200 Weight 63.8 kg General appearance: PRESENT: no acute distress, cooperative Respiratory exam: PRESENT: clear to auscultation sandy Cardiovascular exam: PRESENT: RRR, +S1, +S2 GI/Abdominal exam: PRESENT: soft - Mild distension and mild tenderness on deep palpation. No rebound or guarding. Neurological exam: PRESENT: alert, awake Skin exam: PRESENT: dry, warm Result Laboratory Results: 12/09/18 07:41 12/09/18 07:41 12/09/18 12/09/18 07:41 07:41 WBC 8.9 RBC 3.25 L Hgb 8.1 L Hct 24.7 L MCV 76 L MCH 25.0 L MCHC 32.9 RDW 22.4 H Plt Count 238 Seg Neutrophils % 76.0 Sodium 137.4 Potassium 3.8 Chloride 104 Carbon Dioxide 25 Anion Gap 8 BUN 2 L Creatinine 0.52 Est GFR ( Amer) > 60 Glucose 85 Calcium 8.4 Impressions: Small Bowel X-Ray 12/05/18 00:00 IMPRESSION: No evidence for obstruction. KUB X-Ray 12/05/18 12:00 IMPRESSION: RELATIVE PAUCITY OF BOWEL GAS. THERE ARE A FEW DILATED LOOPS OF SMALL BOWEL. WHEN COMPARED TO THE PREVIOUS CT, THIS MOST LIKELY IS DUE TO OBSTRUCTION. Abdomen/Pelvis CT 12/08/18 00:00 IMPRESSION: 1. DIFFUSE SMALL BOWEL DILATION WITH CONTRAST PRESENT ONLY IN THE PROXIMAL SMALL BOWEL. CONSISTENT WITH HIGH-GRADE ILEUS VERSUS DISTAL OBSTRUCTION. 2. IRREGULAR FLUID COLLECTION IN THE LOWER PELVIS. DUE TO THE NON-OPACIFIED BOWEL LOOPS, CANNOT DETERMINE IF THIS REPRESENTS AN ABSCESS VERSUS A LOOP OF BOWEL OR SIGMOID COLON. OBTAINING A REPEAT CT IN A FEW HOURS MAY BE CONSIDERED TO DETERMINE IF THERE IS ENOUGH CONTRAST PASSING INTO THE DISTAL BOWEL AND COLON TO DELINEATE THIS FLUID COLLECTION. CT OF THE PELVIS WITH DILUTE RECTAL CONTRAST MAY BE ANOTHER ALTERNATIVE IF CLINICALLY INDICATED. IF THIS FLUID COLLECTION IS RELATED TO AN ABSCESS, THE CURRENT LOCATION IS NOT AMENABLE TO PERCUTANEOUS DRAINAGE. 3. NO OTHER SIGNIFICANT OR ACUTE FINDING IN THE ABDOMEN OR PELVIS ON CT SCAN WITH IV CONTRAST. Assessment & Plan - Diagnosis (1) SBO (small bowel obstruction) Is this a current diagnosis for this admission?: Yes (2) Anemia, blood loss Is this a current diagnosis for this admission?: Yes - Time Time Spent with patient: 15-24 minutes Medications reviewed and adjusted accordingly: Yes Disposition: VSS, afebrile Pain is improved today. Since tolerating PO will give PO pain meds today. Labs with stable hgb and WBC count lower today than yesterday. Tolerating PO without n/v Passing gas and soft stools Continue current care, will add GI prophylaxis
[2018-12-09] MEDS: IBUPROFEN 800 MG TABLET PO SCH ×2 (16:20→17:53)
[2018-12-09] MEDS: OXYCODONE-ACETAMINOPHEN 5-325 MG TABLET PO PRN ×2 (17:53→22:07)
[2018-12-10] MEDS: POTASSI CL 20 MEQ/D5-1/2NS 1L 1000 ML IV PRN ×3 (01:46→22:54)
[2018-12-10] MEDS: OXYCODONE-ACETAMINOPHEN 5-325 MG TABLET PO PRN ×4 (04:38→22:52)
[2018-12-10] MEDS: IBUPROFEN 800 MG TABLET PO SCH ×3 (07:37→17:14)
[2018-12-10] MEDS: PROMETHAZINE HCL INJ 25 MG/1 ML VIAL IV PRN ×2 (07:37→23:00)
--- NOTE | 2018-12-10 09:51 | PDOC PROGRESS REPORT ---
Subjective Progress Note for:: 12/10/18 Subjective:: She feels much better today. Reason For Visit: SBO Physical Exam - Physical Exam Vital Signs: Temp Pulse Resp BP Pulse Ox 98.6 F 64 16 121/79 100 12/10/18 08:00 12/10/18 08:00 12/10/18 08:00 12/10/18 08:00 12/10/18 08:00 Intake & Output 12/09/18 12/10/18 12/11/18 06:59 06:59 06:59 Intake Total 1200 1000 Balance 1200 1000 General appearance: PRESENT: no acute distress, well-developed, well-nourished Head exam: PRESENT: atraumatic, normocephalic GI/Abdominal exam: PRESENT: other - still appears distended today. clinically she is much better. Result Laboratory Results: 12/09/18 07:41 12/09/18 07:41 Impressions: Small Bowel X-Ray 12/05/18 00:00 IMPRESSION: No evidence for obstruction. KUB X-Ray 12/05/18 12:00 IMPRESSION: RELATIVE PAUCITY OF BOWEL GAS. THERE ARE A FEW DILATED LOOPS OF SMALL BOWEL. WHEN COMPARED TO THE PREVIOUS CT, THIS MOST LIKELY IS DUE TO OBSTRUCTION. Abdomen/Pelvis CT 12/08/18 00:00 IMPRESSION: 1. DIFFUSE SMALL BOWEL DILATION WITH CONTRAST PRESENT ONLY IN THE PROXIMAL SMALL BOWEL. CONSISTENT WITH HIGH-GRADE ILEUS VERSUS DISTAL OBSTRUCTION. 2. IRREGULAR FLUID COLLECTION IN THE LOWER PELVIS. DUE TO THE NON-OPACIFIED BOWEL LOOPS, CANNOT DETERMINE IF THIS REPRESENTS AN ABSCESS VERSUS A LOOP OF BOWEL OR SIGMOID COLON. OBTAINING A REPEAT CT IN A FEW HOURS MAY BE CONSIDERED TO DETERMINE IF THERE IS ENOUGH CONTRAST PASSING INTO THE DISTAL BOWEL AND COLON TO DELINEATE THIS FLUID COLLECTION. CT OF THE PELVIS WITH DILUTE RECTAL CONTRAST MAY BE ANOTHER ALTERNATIVE IF CLINICALLY INDICATED. IF THIS FLUID COLLECTION IS RELATED TO AN ABSCESS, THE CURRENT LOCATION IS NOT AMENABLE TO PERCUTANEOUS DRAINAGE. 3. NO OTHER SIGNIFICANT OR ACUTE FINDING IN THE ABDOMEN OR PELVIS ON CT SCAN WITH IV CONTRAST. Assessment & Plan - Diagnosis (1) SBO (small bowel obstruction) Is this a current diagnosis for this admission?: Yes - Time Time Spent with patient: 15-24 minutes - Plan Summary Plan Summary: Clinically she is improved. As for the timing of discharge home we will defer to general surgery.
--- NOTE | 2018-12-10 10:00 | PDOC PROGRESS REPORT ---
Subjective Progress Note for:: 12/10/18 Subjective:: Patient states she feels better. She is tolerating full liquids. She had some loose, small particulate bowel movements. She states she is walking in the halls. Reason For Visit: SBO Physical Exam Vital Signs: Temp Pulse Resp BP Pulse Ox 98.6 F 64 16 121/79 100 12/10/18 08:00 12/10/18 08:00 12/10/18 08:00 12/10/18 08:00 12/10/18 08:00 Intake & Output 12/09/18 12/10/18 12/11/18 06:59 06:59 06:59 Intake Total 1200 1000 Balance 1200 1000 General appearance: PRESENT: no acute distress GI/Abdominal exam: PRESENT: other - Patient's abdomen examined with her in the supine position. She is easier to examine compared to 3 days ago. She still little Eileen but not as tender. Results Laboratory Results: 12/09/18 07:41 12/09/18 07:41 Impressions: Small Bowel X-Ray 12/05/18 00:00 IMPRESSION: No evidence for obstruction. KUB X-Ray 12/05/18 12:00 IMPRESSION: RELATIVE PAUCITY OF BOWEL GAS. THERE ARE A FEW DILATED LOOPS OF SMALL BOWEL. WHEN COMPARED TO THE PREVIOUS CT, THIS MOST LIKELY IS DUE TO OBSTRUCTION. Abdomen/Pelvis CT 12/08/18 00:00 IMPRESSION: 1. DIFFUSE SMALL BOWEL DILATION WITH CONTRAST PRESENT ONLY IN THE PROXIMAL SMALL BOWEL. CONSISTENT WITH HIGH-GRADE ILEUS VERSUS DISTAL OBSTRUCTION. 2. IRREGULAR FLUID COLLECTION IN THE LOWER PELVIS. DUE TO THE NON-OPACIFIED BOWEL LOOPS, CANNOT DETERMINE IF THIS REPRESENTS AN ABSCESS VERSUS A LOOP OF BOWEL OR SIGMOID COLON. OBTAINING A REPEAT CT IN A FEW HOURS MAY BE CONSIDERED TO DETERMINE IF THERE IS ENOUGH CONTRAST PASSING INTO THE DISTAL BOWEL AND COLON TO DELINEATE THIS FLUID COLLECTION. CT OF THE PELVIS WITH DILUTE RECTAL CONTRAST MAY BE ANOTHER ALTERNATIVE IF CLINICALLY INDICATED. IF THIS FLUID COLLECTION IS RELATED TO AN ABSCESS, THE CURRENT LOCATION IS NOT AMENABLE TO PERCUTANEOUS DRAINAGE. 3. NO OTHER SIGNIFICANT OR ACUTE FINDING IN THE ABDOMEN OR PELVIS ON CT SCAN WITH IV CONTRAST. Assessment & Plan - Diagnosis (1) SBO (small bowel obstruction) Is this a current diagnosis for this admission?: Yes Plan: Impression: Clinically improved but not completely resolved of postoperative ileus; suspect narcotics contributing to slow bowel recovery Recommendations: 1. Continue current management: No indication for surgical intervention 2. Suggest dedicated bowel regimen, with reduction of narcotics as much as possible 3. Surgery will sign off at this time; reconsult if clinically indicated. - Time Time Spent with patient: 15-24 minutes
[2018-12-10] MEDS: FAMOTIDINE 20 MG TABLET PO SCH ×2 (10:09→21:44)
[2018-12-11] MEDS: OXYCODONE-ACETAMINOPHEN 5-325 MG TABLET PO PRN ×5 (04:06→20:40)
[2018-12-11] MEDS: PROMETHAZINE HCL INJ 25 MG/1 ML VIAL IV PRN ×3 (04:10→17:42)
[2018-12-11] MEDS: IBUPROFEN 800 MG TABLET PO SCH ×3 (08:21→16:21)
[2018-12-11] MEDS: POTASSI CL 20 MEQ/D5-1/2NS 1L 1000 ML IV PRN ×2 (08:21→16:21)
[2018-12-11] MEDS: FAMOTIDINE 20 MG TABLET PO SCH ×2 (09:01→22:50)
--- NOTE | 2018-12-11 10:41 | PDOC PROGRESS REPORT ---
Subjective Progress Note for:: 12/11/18 Subjective:: Reports improvement in pain. Taking PO medications overnight without need for IV medication. Reports formed stool overnight. This am she was able to eat breakfast ( full liquid) with no vomiting or nausea. Denies vaginal bleeding or discharge. Denies f/c Reason For Visit: SBO Physical Exam - Physical Exam Vital Signs: Temp Pulse Resp BP Pulse Ox 99.3 F 73 16 130/69 H 100 12/11/18 08:00 12/11/18 08:00 12/11/18 08:00 12/11/18 08:00 12/11/18 08:00 Intake & Output 12/10/18 12/11/18 12/12/18 06:59 06:59 06:59 Intake Total 1000 3600 Balance 1000 3600 Weight 63.8 kg General appearance: PRESENT: no acute distress, cooperative Respiratory exam: PRESENT: clear to auscultation sandy Cardiovascular exam: PRESENT: RRR GI/Abdominal exam: PRESENT: normal bowel sounds - Abdomen is distended but can compress inward a few centimeters in all quadrants. She is tender with palpaiton but no rebound tenderness. Neurological exam: PRESENT: alert, awake Psychiatric exam: PRESENT: appropriate affect Skin exam: PRESENT: dry, warm Result Laboratory Results: 12/09/18 07:41 12/09/18 07:41 12/08/18 09:20 Stool - Stool - Final Impressions: Small Bowel X-Ray 12/05/18 00:00 IMPRESSION: No evidence for obstruction. KUB X-Ray 12/05/18 12:00 IMPRESSION: RELATIVE PAUCITY OF BOWEL GAS. THERE ARE A FEW DILATED LOOPS OF SMALL BOWEL. WHEN COMPARED TO THE PREVIOUS CT, THIS MOST LIKELY IS DUE TO OBSTRUCTION. Abdomen/Pelvis CT 12/08/18 00:00 IMPRESSION: 1. DIFFUSE SMALL BOWEL DILATION WITH CONTRAST PRESENT ONLY IN THE PROXIMAL SMALL BOWEL. CONSISTENT WITH HIGH-GRADE ILEUS VERSUS DISTAL OBSTRUCTION. 2. IRREGULAR FLUID COLLECTION IN THE LOWER PELVIS. DUE TO THE NON-OPACIFIED BOWEL LOOPS, CANNOT DETERMINE IF THIS REPRESENTS AN ABSCESS VERSUS A LOOP OF BOWEL OR SIGMOID COLON. OBTAINING A REPEAT CT IN A FEW HOURS MAY BE CONSIDERED TO DETERMINE IF THERE IS ENOUGH CONTRAST PASSING INTO THE DISTAL BOWEL AND COLON TO DELINEATE THIS FLUID COLLECTION. CT OF THE PELVIS WITH DILUTE RECTAL CONTRAST MAY BE ANOTHER ALTERNATIVE IF CLINICALLY INDICATED. IF THIS FLUID COLLECTION IS RELATED TO AN ABSCESS, THE CURRENT LOCATION IS NOT AMENABLE TO PERCUTANEOUS DRAINAGE. 3. NO OTHER SIGNIFICANT OR ACUTE FINDING IN THE ABDOMEN OR PELVIS ON CT SCAN WITH IV CONTRAST. Assessment & Plan - Diagnosis (1) SBO (small bowel obstruction) Is this a current diagnosis for this admission?: Yes (2) Anemia, blood loss Is this a current diagnosis for this admission?: Yes - Time Time Spent with patient: 15-24 minutes Medications reviewed and adjusted accordingly: Yes Anticipated discharge: Home - Once tolerating regular diet - Inpatient Certification Based on my medical assessment, after consideration of the patient's comorbidities, presenting symptoms, or acuity I expect that the services needed warrant INPATIENT care.: Yes Medical Necessity: Need For IV Fluids
[2018-12-11] MEDS: SIMETHICONE 80 MG TAB.CHEW PO PRN (20:40)
[2018-12-12] MEDS ORDERED: GLUCAGON,HUMAN RECOMB 1 MG INJ SUBCUT PRN (01:05)
[2018-12-12] MEDS ORDERED: DEXTROSE 40% GEL 15 GM TUBE PO PRN ×2 (01:05)
[2018-12-12] MEDS ORDERED: DEXTROSE 50%-WATER 25 GM/50 ML DISP.SYRIN IV PRN ×2 (01:05)
[2018-12-12] MEDS: HYDROMORPHONE HCL INJ/PF 2 MG/ML AMPULE IV PRN ×3 (01:16→19:18)
[2018-12-12] MEDS: POTASSI CL 20 MEQ/D5-1/2NS 1L 1000 ML IV PRN (01:21)
[2018-12-12] MEDS: PROMETHAZINE HCL INJ 25 MG/1 ML VIAL IV PRN ×3 (02:47→16:57)
--- NOTE | 2018-12-12 04:47 | RADIOLOGY REPORT (SQ) ---
EXAM DESCRIPTION: CT ABDOMEN PELVIS WITHOUT IV CONTRAST COMPLETED DATE/TME: 12/12/2018 01:07 CLINICAL HISTORY: 33 years Female, concern for out small bowel obstruction. HYSTERECTOMY 11/29/18 Comparison: None. Technique: No IV contrast. Oral contrast only. Coronal and sagittal reformat. This exam was performed according to our departmental dose-optimization program, which includes automated exposure control, adjustment of the mA and/or kV according to patient size and/or use of iterative reconstruction technique.[facility]: Dose Right [facility]: CareDose [facility]: Dose Right [facility]: Teradose 4D [facility]: Trendslide LIMITATIONS: None Findings: Low to moderate grade small bowel obstruction includes 3.1 cm fluid distended bowel. Orally administered contrast is seen to the level of the jejunum. Possible transition zone at the right paracentral pelvis, proximal ileum, image 64 series 3. No ascites. No pneumoperitoneum. Mild linear, streaky, patchy opacities of the lung bases partially imaged. Uterus not discerned which may indicate prior hysterectomy. Midline abdominal-pelvic wall scar. Normal appendix. No gross evidence of gallbladder inflammation, hepatobiliary obstruction, or portal vein defect. No hydronephrosis or hydroureter. No renal/ureteral stone. No evidence of abdominal aortic aneurysm. No gross evidence of thecal sac/cord or nerve root compression. Unenhanced lower thorax, abdominopelvic structures, and musculoskeleton appear otherwise grossly unremarkable. Impression: Moderate grade small bowel obstruction.
--- NOTE | 2018-12-12 08:22 | PDOC PROGRESS REPORT ---
Subjective Progress Note for:: 12/12/18 Subjective:: called for severe abdominal pain. no vomiting, same nausea Reason For Visit: SBO s/p hysterectomy Physical Exam - Physical Exam Vital Signs: Temp Pulse Resp BP Pulse Ox 99.8 F 75 18 123/77 98 12/12/18 08:00 12/12/18 08:00 12/12/18 08:00 12/12/18 08:00 12/12/18 08:00 Intake & Output 12/11/18 12/12/18 12/13/18 06:59 06:59 06:59 Intake Total 3600 2000 Balance 3600 1999 Weight 63.8 kg 63.7 kg General appearance: PRESENT: cooperative, well-developed, well-nourished, other - in pain Neurological exam: PRESENT: alert, awake, oriented to person, oriented to place, oriented to time, oriented to situation, CN II-XII grossly intact. ABSENT: motor sensory deficit Result Laboratory Results: 12/09/18 07:41 12/09/18 07:41 12/08/18 09:20 Stool - Stool - Final 12/08/18 09:20 Stool - Stool Stool Culture - Final NO SALMONELLA, SHIGELLA, CAMPYLOBACTER, OR E.COLI 0157 RECOVERED. NEGATIVE FOR SHIGA TOXINS 1&2. Impressions: Small Bowel X-Ray 12/05/18 00:00 IMPRESSION: No evidence for obstruction. KUB X-Ray 12/05/18 12:00 IMPRESSION: RELATIVE PAUCITY OF BOWEL GAS. THERE ARE A FEW DILATED LOOPS OF SMALL BOWEL. WHEN COMPARED TO THE PREVIOUS CT, THIS MOST LIKELY IS DUE TO OBSTRUCTION. Assessment & Plan - Diagnosis (1) SBO (small bowel obstruction) Is this a current diagnosis for this admission?: Yes Plan: pt with severe pain at approx 0200. THis is a late note. NPO ordered and Dilaudid ordered. Called Dr. Tatum to get advice as this is not normal postop for hysterectomy. CT scan ordered. Called by Radiology at 0500 and there is a transition point in the pelvis. Called Dr. Tatum and notified him. Advised patient is NPO and he will see patient. - Time Time Spent with patient: Less than 15 minutes Anticipated discharge: Home Within: Other Disposition: when SBO resolves - Inpatient Certification Based on my medical assessment, after consideration of the patient's comorbidities, presenting symptoms, or acuity I expect that the services needed warrant INPATIENT care.: Yes I certify that my determination is in accordance with my understanding of Medicare's requirements for reasonable and necessary INPATIENT services [42 CFR 412.3e].: Yes Medical Necessity: Need Close Monitoring Due to Risk of Patient Decompensation, Need For IV Fluids, Need for Pain Control Post Hospital Care: D/C Pool Servicer Documentation
[2018-12-12] MEDS: FAMOTIDINE 20 MG TABLET PO SCH ×2 (09:44→21:03)
[2018-12-12] MEDS: IBUPROFEN 800 MG TABLET PO SCH ×3 (09:44→16:57)
[2018-12-12] MEDS ORDERED: HYDROMORPHONE HCL INJ/PF 2 MG/ML AMPULE IV ONE (13:00)
--- NOTE | 2018-12-12 16:25 | PDOC PROGRESS REPORT ---
Subjective Progress Note for:: 12/12/18 Subjective:: abdominal pains Still passing flatus Denies nausea nor vomiting. Tolerating liquid diet Reason For Visit: SBO Physical Exam Vital Signs: Temp Pulse Resp BP Pulse Ox 98.8 F 68 18 105/60 100 12/12/18 15:22 12/12/18 15:22 12/12/18 15:22 12/12/18 15:22 12/12/18 15:22 Intake & Output 12/11/18 12/12/18 12/13/18 06:59 06:59 06:59 Intake Total 3600 2000 Balance 3600 2000 Weight 63.8 kg 63.7 kg Exam: Abdomen is soft with mild lower abdominal tenderness. Abdomen is mildly distended Results Laboratory Results: 12/09/18 07:41 12/09/18 07:41 Impressions: Small Bowel X-Ray 12/05/18 00:00 IMPRESSION: No evidence for obstruction. KUB X-Ray 12/05/18 12:00 IMPRESSION: RELATIVE PAUCITY OF BOWEL GAS. THERE ARE A FEW DILATED LOOPS OF SMALL BOWEL. WHEN COMPARED TO THE PREVIOUS CT, THIS MOST LIKELY IS DUE TO OBSTRUCTION. Assessment & Plan - Diagnosis (1) SBO (small bowel obstruction) Is this a current diagnosis for this admission?: Yes (2) ileus post lysis of adhesions and BRYCE Is this a current diagnosis for this admission?: Yes - Time Time Spent with patient: 15-24 minutes - Plan Summary Plan Summary: Patient had a CT scan earlier this morning with p.o. contrast. I have reviewed the films with the radiologist. Radiologist feels is most likely ileus. I asked him about previous finding in the pelvic area of possible hematoma, he said he cannot really see since patient denies any IV contrast. He suggested that if he repeat the CT scan to have IV and p.o. contrast at the same time. Patient appears to be not obstructed at this time. Would continue with gradual increase in p.o. diet. I would hold off giving narcotics if possible. We will follow the patient with you.
[2018-12-12] MEDS: LORAZEPAM INJ 2 MG/1 ML VIAL IV PRN (23:57)
[2018-12-13] MEDS: POTASSI CL 20 MEQ/D5-1/2NS 1L 1000 ML IV PRN ×2 (05:01→13:55)
[2018-12-13] MEDS: OXYCODONE-ACETAMINOPHEN 5-325 MG TABLET PO PRN ×4 (05:03→22:45)
[2018-12-13] MEDS: PROMETHAZINE HCL INJ 25 MG/1 ML VIAL IV PRN ×3 (05:11→17:53)
[2018-12-13] MEDS: IBUPROFEN 800 MG TABLET PO SCH ×3 (08:10→17:52)
[2018-12-13] MEDS: HYDROMORPHONE HCL INJ/PF 2 MG/ML AMPULE IV PRN (08:10)
--- NOTE | 2018-12-13 09:12 | PDOC PROGRESS REPORT ---
Subjective Progress Note for:: 12/13/18 Subjective:: Reports improvement in pain. Taking PRN meds including IV dose this am prior to getting up to ambulate in halls. Reports pasing stool overnight. Tolerating full liquid with no vomiting or nausea. Denies vaginal bleeding or discharge. Denies f/c Reason For Visit: SBO Physical Exam - Physical Exam Vital Signs: Temp Pulse Resp BP Pulse Ox 98.2 F 69 16 132/80 H 100 12/13/18 07:17 12/13/18 07:17 12/13/18 07:17 12/13/18 07:17 12/13/18 07:17 Intake & Output 12/12/18 12/13/18 12/14/18 06:59 06:59 06:59 Intake Total 1999 999 Balance 1999 1000 Weight 63.7 kg General appearance: PRESENT: no acute distress, cooperative Respiratory exam: PRESENT: clear to auscultation sandy Cardiovascular exam: PRESENT: RRR, +S1, +S2 Pulses: PRESENT: normal dorsalis pedis pul GI/Abdominal exam: PRESENT: distended, normal bowel sounds, soft, tenderness - Tender on palpation- no rebound Neurological exam: PRESENT: alert, awake Psychiatric exam: PRESENT: appropriate affect Skin exam: PRESENT: dry, warm Result Laboratory Results: 12/09/18 07:41 12/09/18 07:41 Impressions: Small Bowel X-Ray 12/05/18 00:00 IMPRESSION: No evidence for obstruction. KUB X-Ray 12/05/18 12:00 IMPRESSION: RELATIVE PAUCITY OF BOWEL GAS. THERE ARE A FEW DILATED LOOPS OF SMALL BOWEL. WHEN COMPARED TO THE PREVIOUS CT, THIS MOST LIKELY IS DUE TO OBS TRUCTION. Assessment & Plan - Diagnosis (1) SBO (small bowel obstruction) Is this a current diagnosis for this admission?: Yes Plan: Continue recommendations of general surgery. Passing gas and stool. No nausea and vomiting (2) Anemia, blood loss Is this a current diagnosis for this admission?: Yes Plan: P.o. iron therapy - Time Time Spent with patient: 15-24 minutes Medications reviewed and adjusted accordingly: Yes Disposition: Stable
[2018-12-13] MEDS: SIMETHICONE 80 MG TAB.CHEW PO PRN ×2 (10:11→17:52)
[2018-12-13] MEDS: FAMOTIDINE 20 MG TABLET PO SCH ×2 (10:11→22:44)
[2018-12-13] MEDS: PROMETHAZINE HCL 25 MG TABLET PO PRN (23:16)
[2018-12-14] MEDS: OXYCODONE-ACETAMINOPHEN 5-325 MG TABLET PO PRN ×4 (02:58→15:26)
[2018-12-14] MEDS: PROMETHAZINE HCL 25 MG TABLET PO PRN ×2 (07:14→14:03)
[2018-12-14] MEDS: IBUPROFEN 800 MG TABLET PO SCH ×2 (08:23→11:24)
[2018-12-14] MEDS: FAMOTIDINE 20 MG TABLET PO SCH (11:24)
--- NOTE | 2018-12-14 14:59 | PDOC PROGRESS REPORT ---
Subjective Progress Note for:: 12/14/18 Subjective:: some abdominal pains Reason For Visit: SBO Physical Exam Vital Signs: Temp Pulse Resp BP Pulse Ox 98.8 F 75 16 126/70 H 99 12/14/18 11:00 12/14/18 11:00 12/14/18 11:00 12/14/18 11:00 12/14/18 11:00 Intake & Output 12/13/18 12/14/18 12/15/18 06:59 06:59 06:59 Intake Total 1000 1000 Balance 1000 1000 Weight 58.6 kg 63.8 kg Exam: Had more formed BM today Abdomen is soft with minimal tenderness. Incision healing well Results Laboratory Results: 12/09/18 07:41 12/09/18 07:41 Impressions: Small Bowel X-Ray 12/05/18 00:00 IMPRESSION: No evidence for obstruction. KUB X-Ray 12/05/18 12:00 IMPRESSION: RELATIVE PAUCITY OF BOWEL GAS. THERE ARE A FEW DILATED LOOPS OF SMALL BOWEL. WHEN COMPARED TO THE PREVIOUS CT, THIS MOST LIKELY IS DUE TO OBSTRUCTION. Assessment & Plan - Diagnosis (1) SBO (small bowel obstruction) Is this a current diagnosis for this admission?: Yes (2) ileus post lysis of adhesions and BRYCE Is this a current diagnosis for this admission?: Yes - Time Time Spent with patient: 15-24 minutes - Plan Summary Plan Summary: She continues to have BM. Initially diarrheic but now formed.She is not obstructed. She is able to eat small amounts of regular food. She has some abdominal pains that are episodic suspicious for narcotic demands. She should be weaned off completely from narcotic use. She can be discharged from general surgical viewpoint.
--- NOTE | 2018-12-14 15:14 | PDOC PROGRESS REPORT ---
Subjective Progress Note for:: 12/14/18 Subjective:: + BM, +flatus, no vomiting, same nausea Reason For Visit: SBO Physical Exam - Physical Exam Vital Signs: Temp Pulse Resp BP Pulse Ox 98.8 F 75 16 126/70 H 99 12/14/18 11:00 12/14/18 11:00 12/14/18 11:00 12/14/18 11:00 12/14/18 11:00 Intake & Output 12/13/18 12/14/18 12/15/18 06:59 06:59 06:59 Intake Total 1000 1000 Balance 1000 1000 Weight 58.6 kg 63.8 kg General appearance: PRESENT: no acute distress, well-developed, well-nourished Head exam: PRESENT: atraumatic, normocephalic Neck exam: PRESENT: full ROM. ABSENT: carotid bruit, JVD, lymphadenopathy, thyromegaly Respiratory exam: PRESENT: clear to auscultation sandy, symmetrical, unlabored Cardiovascular exam: PRESENT: RRR. ABSENT: diastolic murmur, rubs, systolic murmur Pulses: PRESENT: normal dorsalis pedis pul, +2 pedal pulses bilateral GI/Abdominal exam: PRESENT: distended, normal bowel sounds. ABSENT: firm, guarding, rebound, tenderness Rectal exam: PRESENT: deferred Extremities exam: PRESENT: full ROM. ABSENT: calf tenderness, clubbing, pedal edema Neurological exam: PRESENT: alert, awake, oriented to person, oriented to place, oriented to time, oriented to situation, CN II-XII grossly intact. ABSENT: motor sensory deficit Psychiatric exam: PRESENT: appropriate affect, normal mood. ABSENT: homicidal ideation, suicidal ideation Result Laboratory Results: 12/09/18 07:41 12/09/18 07:41 Impressions: Small Bowel X-Ray 12/05/18 00:00 IMPRESSION: No evidence for obstruction. KUB X-Ray 12/05/18 12:00 IMPRESSION: RELATIVE PAUCITY OF BOWEL GAS. THERE ARE A FEW DILATED LOOPS OF SMALL BOWEL. WHEN COMPARED TO THE PREVIOUS CT, THIS MOST LIKELY IS DUE TO OBSTRUCTION. Status: Imported from PACS Assessment & Plan - Diagnosis (1) SBO (small bowel obstruction) Is this a current diagnosis for this admission?: Yes Plan: Doing well. Advanced to soft diet. Called Dr. Tatum who will see patient and eval if clear for discharge. SHe is eating and tolerating po intake. Some abd distension but soft. Dr. Tatum recommends patient ok for discharge. - Time Time Spent with patient: 15-24 minutes Medications reviewed and adjusted accordingly: Yes Anticipated discharge: Home Within: within 24 hours - Inpatient Certification Based on my medical assessment, after consideration of the patient's comorbidities, presenting symptoms, or acuity I expect that the services needed warrant INPATIENT care.: No I certify that my determination is in accordance with my understanding of Medicare's requirements for reasonable and necessary INPATIENT services [42 CFR 412.3e].: No Post Hospital Care: D/C Field Marketing Specialist Documentation - Plan Summary Plan Summary: Discharge to home.
--- NOTE | 2018-12-14 15:21 | PDOC DISCHARGE SUMMARY ---
Impression - Admit/DC Date/PCP Admission Date/Primary Care Provider: 12/04/18 23:57 Discharge Date: 12/14/18 - Discharge Diagnosis (1) SBO (small bowel obstruction) Is this a current diagnosis for this admission?: Yes (2) ileus post lysis of adhesions and BRYCE Is this a current diagnosis for this admission?: Yes - Assessment Summary: Admitted for SBO s/o BRYCE with NURA on 11/[address] Bernabe. Pt was placed on bowel rest and slowly advanced once she had improved. Small bowel follow through done. CT abd/pelvis done on 12/08 and on 12/11. Surgery feels presentation now more consistent with resolving ileus. Patient doing better. - Additional Information Resuscitation Status: Full Code Discharge Diet: As Tolerated Discharge Activity: Activity As Tolerated, No Driving, Other - pelvic rest. Referrals: JOHN BERNABE MD [ACTIVE STAFF] - Prescriptions: Oxycodone HCl/Acetaminophen [Percocet 5-325 mg Tablet] 1 tab PO Q4HP PRN #15 tablet PRN Reason: Promethazine HCl [Phenergan 25 mg Tablet] 25 mg PO Q6HP PRN #20 tablet PRN Reason: Simethicone [Mylicon 80 mg Chewable Tablet] 80 mg PO QIDP PRN #60 tab.chew PRN Reason: Famotidine [Pepcid 20 mg Tablet] 20 mg PO Q12 #60 tablet Home Medications: Estrogens,Conjugated [Premarin 1.25 mg Tablet] 1.25 mg PO DAILY #30 tablet 12/01/18 Oxycodone HCl/Acetaminophen [Percocet 5-325 mg Tablet] 1 tab PO Q6HP PRN #30 tablet 12/01/18 Famotidine [Pepcid 20 mg Tablet] 20 mg PO Q12 #60 tablet 12/14/18 Ibuprofen [Motrin 800 mg Tablet] 800 mg PO MEALS tablet 12/14/18 Oxycodone HCl/Acetaminophen [Percocet 5-325 mg Tablet] 1 tab PO Q4HP PRN #15 tablet 12/14/18 Promethazine HCl [Phenergan 25 mg Tablet] 25 mg PO Q6HP PRN #20 tablet 12/14/18 Simethicone [Mylicon 80 mg Chewable Tablet] 80 mg PO QIDP PRN #60 tab.chew 12/14/18 History of Present Illiness History of Present Illness: JAKE RED is a 33 year old female.Admitted for SBO s/o BRYCE with [facility]URA on 11/[address] Bernabe. Pt was placed on bowel rest and slowly advanced once she had improved. Small bowel follow through done. CT abd/pelvis done on 12/08 and on 12/11. Surgery feels presentation now more consistent with resolving ileus. Patient doing better. Hospital Course Hospital Course: Admitted for SBO s/o BRYCE with NURA on 11/[address] Bernabe. Pt was placed on bowel rest and slowly advanced once she had improved. Small bowel follow through done. CT abd/pelvis done on 12/08 and on 12/11. Surgery feels presentation now more consistent with resolving ileus. Patient doing better. Physical Exam - Physical Exam Vital Signs: Temp Pulse Resp BP Pulse Ox 98.8 F 75 16 126/70 H 99 12/14/18 11:00 12/14/18 11:00 12/14/18 11:00 12/14/18 11:00 12/14/18 11:00 Intake & Output 12/13/18 12/14/18 12/15/18 06:59 06:59 06:59 Intake Total 1000 1000 Balance 1000 1000 Weight 58.6 kg 63.8 kg General appearance: PRESENT: no acute distress, well-developed, well-nourished Head exam: PRESENT: atraumatic, normocephalic Neck exam: PRESENT: full ROM. ABSENT: carotid bruit, JVD, lymphadenopathy, thyromegaly Cardiovascular exam: PRESENT: RRR. ABSENT: diastolic murmur, rubs, systolic murmur Pulses: PRESENT: normal dorsalis pedis pul, +2 pedal pulses bilateral GI/Abdominal exam: PRESENT: normal bowel sounds, soft. ABSENT: distended, guarding, mass, organolmegaly, rebound, tenderness Rectal exam: PRESENT: deferred Extremities exam: PRESENT: full ROM. ABSENT: calf tenderness, clubbing, pedal edema Neurological exam: PRESENT: alert, awake, oriented to person, oriented to place, oriented to time, oriented to situation, CN II-XII grossly intact. ABSENT: motor sensory deficit Skin exam: PRESENT: dry, intact, warm. ABSENT: cyanosis, rash Results Laboratory Results: WBC 8.9 10^3/uL (4.0-10.5) 12/09/18 07:41 RBC 3.25 10^6/uL (3.72-5.28) L 12/09/18 07:41 Hgb 8.1 g/dL (12.0-15.5) L 12/09/18 07:41 Hct 24.7 % (36.0-47.0) L 12/09/18 07:41 MCV 76 fl (80-97) L 12/09/18 07:41 MCH 25.0 pg (27.0-33.4) L 12/09/18 07:41 MCHC 32.9 g/dL (32.0-36.0) 12/09/18 07:41 RDW 22.4 % (11.5-14.0) H 12/09/18 07:41 Plt Count 238 10^3/uL (150-450) 12/09/18 07:41 Lymph % (Auto) 12.9 % (13-45) L 12/09/18 07:41 Emanuel % (Auto) 9.5 % (3-13) 12/09/18 07:41 Eos % (Auto) 0.8 % (0-6) 12/09/18 07:41 Baso % (Auto) 0.8 % (0-2) 12/09/18 07:41 Absolute Neuts (auto) 6.8 10^3/uL (1.7-8.2) 12/09/18 07:41 Absolute Lymphs (auto) 1.1 10^3/uL (0.5-4.7) 12/09/18 07:41 Absolute Monos (auto) 0.8 10^3/uL (0.1-1.4) 12/09/18 07:41 Absolute Eos (auto) 0.1 10^3/uL (0.0-0.6) 12/09/18 07:41 Absolute Basos (auto) 0.1 10^3/uL (0.0-0.2) 12/09/18 07:41 Seg Neutrophils % 76.0 % (42-78) 12/09/18 07:41 Sodium 137.4 mmol/L (137-145) 12/09/18 07:41 Potassium 3.8 mmol/L (3.6-5.0) 12/09/18 07:41 Chloride 104 mmol/L (98-107) 12/09/18 07:41 Carbon Dioxide 25 mmol/L (22-30) 12/09/18 07:41 Anion Gap 8 (5-19) 12/09/18 07:41 BUN 2 mg/dL (7-20) L 12/09/18 07:41 Creatinine 0.52 mg/dL (0.52-1.25) 12/09/18 07:41 Est GFR ( Amer) > 60 (>60) 12/09/18 07:41 Est GFR (MDRD) Non-Af > 60 (>60) 12/09/18 07:41 Glucose 85 mg/dL (75-110) 12/09/18 07:41 Lactic Acid 1.6 mmol/L (0.7-2.1) 12/04/18 20:43 Calcium 8.4 mg/dL (8.4-10.2) 12/09/18 07:41 Total Bilirubin 0.3 mg/dL (0.2-1.3) 12/04/18 20:03 Direct Bilirubin 0.2 mg/dL (0.0-0.4) 12/04/18 20:03 Neonat Total Bilirubin Not Reportable 12/04/18 20:03 Neonat Direct Bilirubin Not Reportable 12/04/18 20:03 Neonat Indirect Bili Not Reportable 12/04/18 20:03 AST 23 U/L (14-36) 12/04/18 20:03 ALT 13 U/L (<35) 12/04/18 20:03 Alkaline Phosphatase 67 U/L (38-126) 12/04/18 20:03 Total Protein 8.0 g/dL (6.3-8.2) 12/04/18 20:03 Albumin 4.5 g/dL (3.5-5.0) 12/04/18 20:03 Lipase 158.4 U/L (23-300) 12/04/18 20:03 Urine Color STRAW 12/04/18 21:37 Urine Appearance CLEAR 12/04/18 21:37 Urine pH 7.0 (5.0-9.0) 12/04/18 21:37 Ur Specific [place]ier 1.008 12/04/18 21:37 Urine Protein NEGATIVE mg/dL (NEGATIVE) 12/04/18 21:37 Urine Glucose (UA) NEGATIVE mg/dL (NEGATIVE) 12/04/18 21:37 Urine Ketones 80 mg/dL (NEGATIVE) H 12/04/18 21:37 Urine Blood NEGATIVE (NEGATIVE) 12/04/18 21:37 Urine Nitrite NEGATIVE (NEGATIVE) 12/04/18 21:37 Urine Bilirubin NEGATIVE (NEGATIVE) 12/04/18 21:37 Urine Urobilinogen NEGATIVE mg/dL (<2.0) 12/04/18 21:37 Ur Leukocyte Esterase NEGATIVE (NEGATIVE) 12/04/18 21:37 Urine WBC (Auto) 0 /HPF 12/04/18 21:37 Urine RBC (Auto) 1 /HPF 12/04/18 21:37 Squamous Epi Cells Auto 4 /HPF 12/04/18 21:37 Urine Mucus (Auto) RARE /LPF 12/04/18 21:37 Urine Ascorbic Acid NEGATIVE (NEGATIVE) 12/04/18 21:37 Blood Type O NEGATIVE 12/05/18 12:25 Antibody Screen NEGATIVE 12/05/18 12:25 Crossmatch See Detail 12/05/18 12:25 Impressions: Abdomen/Pelvis CT 12/04/18 19:25 IMPRESSION: 1. Findings compatible with small bowel obstruction with transition point likely in the pelvis however it is not definitely identified on this study. The distal small bowel and colon are decompressed. 2. Moderate amount of free This exam was performed according to our departmental dose-optimization program, which includes automated exposure control, adjustment of the mA and/or kV according to patient size and/or use of iterative reconstruction technique. Small Bowel X-Ray 12/05/18 00:00 IMPRESSION: No evidence for obstruction. KUB X-Ray 12/05/18 12:00 IMPRESSION: RELATIVE PAUCITY OF BOWEL GAS. THERE ARE A FEW DILATED LOOPS OF SMALL BOWEL. WHEN COMPARED TO THE PREVIOUS CT, THIS MOST LIKELY IS DUE TO OBSTRUCTION. Abdomen/Pelvis CT 12/08/18 00:00 IMPRESSION: 1. DIFFUSE SMALL BOWEL DILATION WITH CONTRAST PRESENT ONLY IN THE PROXIMAL SMALL BOWEL. CONSISTENT WITH HIGH-GRADE ILEUS VERSUS DISTAL OBSTRUCTION. 2. IRREGULAR FLUID COLLECTION IN THE LOWER PELVIS. DUE TO THE NON-OPACIFIED BOWEL LOOPS, CANNOT DETERMINE IF THIS REPRESENTS AN ABSCESS VERSUS A LOOP OF BOWEL OR SIGMOID COLON. OBTAINING A REPEAT CT IN A FEW HOURS MAY BE CONSIDERED TO DETERMINE IF THERE IS ENOUGH CONTRAST PASSING INTO THE DISTAL BOWEL AND COLON TO DELINEATE THIS FLUID COLLECTION. CT OF THE PELVIS WITH DILUTE RECTAL CONTRAST MAY BE ANOTHER ALTERNATIVE IF CLINICALLY INDICATED. IF THIS FLUID COLLECTION IS RELATED TO AN ABSCESS, THE CURRENT LOCATION IS NOT AMENABLE TO PERCUTANEOUS DRAINAGE. 3. NO OTHER SIGNIFICANT OR ACUTE FINDING IN THE ABDOMEN OR PELVIS ON CT SCAN WITH IV CONTRAST. Plan Health Concerns: Discharge to home. Plan of Treatment: Discharge to home Stroke Is this a Stroke Patient?: No Acute Heart Failure - Is this a Heart Failure Patient?: No
[2018-12-14 16:25] VITALS: BP 126/79
== END 2018-12-14 17:02 | disposition home or self-care (01) | DRG 390 ==
LOC: ER 17:56 → EH 23:57 → EEVIPCON 23:57 → EH 12-05 03:01 → 2S 12-05 04:31 → 2N 12-12 07:46
PROVIDERS: ADMIT Obstetrics & Gynecology; ATTEND Obstetrics & Gynecology
PROC: 30233N1 Transfusion of Nonautologous Red Blood Cells into Peripheral Vein, Percutaneous Approach (ICD-10-PCS; principal; 2018-12-05)
DX: K56.7 Ileus, unspecified (principal); D50.0 Iron deficiency anemia secondary to blood loss (chronic); G89.18 Other acute postprocedural pain; F41.9 Anxiety disorder, unspecified; Z90.710 Acquired absence of both cervix and uterus
CPT/HCPCS: 36415; 36430; 74018; 74176; 74177; 74250; 80048; 80053; 81001; 83605; 83690; 85025; 86850; 86900; 86901; 86920; 87045; 87077; 87205; 94799; 96361; 96374; 96375; 96376; 99285; J0131; J1170; J1885; J2060; J2270; J2405; J2550; J3010; J3480; J7030; J7120; P9016

== ENCOUNTER 2019-01-21 01:21 | Emergency (ER) | payer BC, OTHER ==
[2019-01-21 02:11] LABS: APPEARANCE,URINE CLOUDY; BILIRUBIN,URINE NEGATIVE (NEGATIVE); COLOR,URINE YELLOW; GLUCOSE, URINE NEGATIVE (NEGATIVE); KETONES,URINE 20 mg/dL (NEGATIVE); LEUKOCYTE ESTERASE,URINE NEGATIVE (NEGATIVE); NITRITE,URINE NEGATIVE (NEGATIVE); PROTEIN,URINE NEGATIVE (NEGATIVE); URINE SPECIFIC GRAVITY 1.013; UROBILINOGEN,URINE NEGATIVE mg/dL (<2.0)
[2019-01-21 02:32] LABS: ABSOLUTE MONOCYTES (AUTO) 0.6 10^3/uL (0.1-1.4); ABSOLUTE NEUT (AUTO) 2.3 10^3/uL (1.7-8.2); BASOPHILS % (AUTO) 0.7 % (0-2); EOSINOPHILS % (AUTO) 0.6 % (0-6); HEMATOCRIT 43.8 % (36.0-47.0); HEMOGLOBIN 14.4 g/dL (12.0-15.5); LYMPHOCYTES % (AUTO) 26.2 % (13-45); MEAN CORPUSCULAR HEMOGLOBIN 25.1 pg (27.0-33.4); MEAN CORPUSCULAR HGB CONC 32.8 g/dL (32.0-36.0); MEAN CORPUSCULAR VOLUME 77 fl (80-97); MONOCYTES % (AUTO) 14.7 % (3-13); PLATELET COUNT 211 10^3/uL (150-450); RED BLOOD COUNT 5.72 10^6/uL (3.72-5.28); RED CELL DISTRIBUTION WIDTH 21.1 % (11.5-14.0); SEGMENTED NEUTROPHILS % (AUTO) 57.8 % (42-78); TOTAL CELLS COUNTED % (AUTO) 100 %; WHITE BLOOD COUNT 3.9 10^3/uL (4.0-10.5)
[2019-01-21 02:47] LABS: ALBUMIN 5.3 g/dL (3.5-5.0); ALKALINE PHOSPHATASE 89 U/L (38-126); ANION GAP 15 (5-19); ASPARTATE AMINO TRANSFERASE 24 U/L (14-36); BILIRUBIN,DIRECT 0.1 mg/dL (0.0-0.4); BILIRUBIN,TOTAL 0.5 mg/dL (0.2-1.3); BLOOD UREA NITROGEN 12 mg/dL (7-20); CALCIUM 10.6 mg/dL (8.4-10.2); CARBON DIOXIDE 24 mmol/L (22-30); CHLORIDE 101 mmol/L (98-107); GLUCOSE 106 mg/dL (75-110); POTASSIUM 4.2 mmol/L (3.6-5.0); TOTAL PROTEIN 9.5 g/dL (6.3-8.2)
[2019-01-21] MEDS ORDERED: ONDANSETRON HCL INJ/PF 4 MG/2 ML SDV IV ONE ×2 (04:20→08:26)
[2019-01-21] MEDS ORDERED: NORMAL SALINE 1000 ML 1,000 ML IV ONE ×2 (04:20→06:23)
[2019-01-21] MEDS ORDERED: ACETAMINOPHEN 325 MG TABLET PO ONE (05:14)
[2019-01-21] MEDS ORDERED: DIPHENHYDRAMINE HCL 50 MG/ML VIAL IV ONE (06:22)
[2019-01-21] MEDS ORDERED: FENTANYL CITRATE INJ/PF 100 MCG/2 ML AMPUL IV ONE (06:22)
[2019-01-21] MEDS ORDERED: METOCLOPRAMIDE HCL INJ/PF 10 MG/2 ML SDV IV ONE (06:22)
--- NOTE | 2019-01-21 08:20 | RADIOLOGY REPORT (SQ) ---
EXAM DESCRIPTION: ACUTE ABDOMEN SERIES COMPLETED DATE/TIME: 01/21/2019 6:52 am REASON FOR STUDY: abd pain COMPARISON: 12/05/2018. NUMBER OF VIEWS: Three views. TECHNIQUE: Frontal chest, supine abdomen and upright/decubitus abdomen radiographic images acquired. LIMITATIONS: None. FINDINGS: CHEST: Lungs clear of infiltrates. FREE AIR: None. No abnormal gas collections. BOWEL GAS PATTERN: Nonobstructive pattern. No dilated loops or air fluid levels. CALCIFICATIONS: No suspicious calcifications. HARDWARE: Surgical clip. SOFT TISSUES: No gross mass or suggestion of organomegaly. BONES: No acute fracture. No worrisome bone lesions. OTHER: No other significant finding. IMPRESSION: NO RADIOGRAPHIC EVIDENCE FOR ACUTE ABDOMINAL DISEASE. TECHNICAL DOCUMENTATION: JOB ID: [id number] [employer]- All Rights Reserved Reading location - IP/workstation name: [email or web address]
[2019-01-21] MEDS ORDERED: HYDROMORPHONE HCL INJ/PF 2 MG/ML AMPULE IV ONE (08:26)
--- NOTE | 2019-01-21 08:28 | ER Document Report ---
ED General - General Chief Complaint: Nausea/Vomiting/Diarrhea Stated Complaint: VOMITING,BODY ACHES,DIARRHEA Time Seen by Provider: 01/21/19 06:06 Primary Care Provider: JOHN STAHL MD [Primary Care Provider] - Follow up as needed Notes: 33 year old presents with complaints of abdominal pain that came on along with nonbloody nonbilious emesis and loose watery stool. Also diffuse abd pain that she tells me is very much like the pain she experienced and was seen here for in Nov after a hysterectomy. At that time she ended up with a a small bowel obstruction. No urinary symptoms. No fever. TRAVEL OUTSIDE OF THE [place] IN LAST 30 DAYS: No - Related Data Allergies/Adverse Reactions: cinnamon Allergy (Verified 01/21/19 04:39) Past Medical History - Social History Smoking Status: Former Smoker Frequency of alcohol use: None Drug Abuse: None Family History: CVA, DM, Hyperlipidemia, Hypertension Patient has suicidal ideation: No Patient has homicidal ideation: No Renal/ Medical History: Denies: Hx Ovarian Cysts, Hx Peritoneal Dialysis, Hx Pelvic Inflammatory Disease Malignancy Medical History: Denies: Hx Breast Cancer, Hx Cervical Cancer, Hx Leukemia, Hx Ovarian Cancer Psychiatric Medical History: Reports: Hx Anxiety Infectious Medical History: Denies: Hx HIV Past Surgical History: Reports: Hx Abdominal Surgery - Bowel Obstruction, Hx Bowel Surgery - BOWEL RESECTION, Hx Gynecologic Surgery - Removal of right ovary and a tumor in 2009., Hx Hysterectomy, Other - No previous laparotomies for ovarian cyst endometriosis or small bowel obst. Denies: Hx Appendectomy, Hx Section, Hx Cholecystectomy, Hx Coronary Artery Bypass Graft, Hx Gastric Bypass Surgery, Hx Herniorrhaphy, Hx Mastectomy, Hx Pacemaker, Hx Tonsillectomy, Hx Tubal Ligation - Immunizations Hx Diphtheria, Pertussis, Tetanus Vaccination: Yes Review of Systems - Review of Systems Constitutional: No symptoms reported EENT: No symptoms reported Cardiovascular: No symptoms reported Respiratory: No symptoms reported Gastrointestinal: See HPI, Diarrhea, Vomiting Genitourinary: No symptoms reported Female Genitourinary: No symptoms reported Musculoskeletal: No symptoms reported Skin: No symptoms reported Hematologic/Lymphatic: No symptoms reported Neurological/Psychological: No symptoms reported Physical Exam - Vital signs Vitals: Temp Pulse Resp BP Pulse Ox 98.2 F 109 H 20 127/77 H 99 01/21/19 01:28 01/21/19 01:28 01/21/19 01:28 01/21/19 01:28 01/21/19 01:28 Interpretation: Normal - General General appearance: Appears well, Alert - HEENT Head: Normocephalic, Atraumatic Eyes: Normal Pupils: PERRL - Respiratory Respiratory status: No respiratory distress Chest status: Nontender Breath sounds: Normal Chest palpation: Normal - Cardiovascular Rhythm: Regular Heart sounds: Normal auscultation Murmur: No - Abdominal Inspection: Normal Distension: No distension Bowel sounds: Normal Tenderness: Nontender Organomegaly: No organomegaly - Back Back: Normal, Nontender - Extremities General upper extremity: Normal inspection, Nontender, Normal color, Normal ROM, Normal temperature General lower extremity: Normal inspection, Nontender, Normal color, Normal ROM, Normal temperature, Normal weight bearing. No: Odilia's sign - Neurological Neuro grossly intact: Yes Cognition: Normal Orientation: AAOx4 Townsend Coma Scale Eye Opening: Spontaneous Townsend Coma Scale Verbal: Oriented Townsend Coma Scale Motor: Obeys Commands Drew Coma Scale Total: 15 Speech: Normal Motor strength normal: LUE, RUE, LLE, RLE Sensory: Normal - Psychological Associated symptoms: Normal affect, Normal mood - Skin Skin Temperature: Warm Skin Moisture: Dry Skin Color: Normal Course - Re-evaluation Re-evalutation: 01/21/19 10:47 After plain films she was revaluated but still wiht moderate diffuse abd pain. Ct was ordered and is reassuring. She is now feeling better. Explained oral rehydration and she expressed understanding. She will follow up. - Vital Signs Vital signs: Temp Pulse Resp BP Pulse Ox 98.2 F 76 14 107/67 100 01/21/19 06:53 01/21/19 06:53 01/21/19 06:53 01/21/19 06:53 01/21/19 06:53 - Laboratory Result Diagrams: 01/21/19 02:15 01/21/19 02:15 Laboratory results interpreted by me: 01/21/19 01/21/19 01/21/19 01:47 02:15 02:15 WBC 3.9 L RBC 5.72 H MCV 77 L MCH 25.1 L RDW 21.1 H [place] % (Auto) 14.7 H Calcium 10.6 H Total Protein 9.5 H Albumin 5.3 H Urine Ketones 20 H Urine Blood SMALL H - Diagnostic Test Radiology reviewed: Reports reviewed Discharge - Discharge Clinical Impression: Viral illness, Vomiting and diarrhea Condition: Good Disposition: HOME, SELF-CARE Instructions: Intravenous (IV) Fluids ([facility]), Antinausea Medication ([facility]), Diarrhea, Nonspecific ([facility]), Viral Syndrome ([facility]) Additional Instructions: See your doctor in follow up. Call tomorrow. Rest, medicines as directed. Please return here for any problems or any concerns. Referrals: JOHN STAHL MD [Primary Care Provider] - Follow up as needed
--- NOTE | 2019-01-21 09:34 | RADIOLOGY REPORT (SQ) ---
EXAM DESCRIPTION: CT ABD/PELVIS WITH IV ONLY COMPLETED DATE/TIME: 01/21/2019 9:14 am REASON FOR STUDY: abd pain COMPARISON: 12/12/2018. TECHNIQUE: CT scan of the abdomen and pelvis performed using helical scanning technique with dynamic intravenous contrast injection. No oral contrast. Images reviewed with lung, soft tissue, and bone windows. Reconstructed coronal and sagittal MPR images reviewed. Delayed images for evaluation of the urinary system also acquired. All images stored on PACS. All CT scanners at this facility use dose modulation, iterative reconstruction, and/or weight based d osing when appropriate to reduce radiation dose to as low as reasonably achievable (ALARA). [facility]: Dose Right [facility]: CareDose [facility]: Dose Right [facility]: Teradose 4D [facility]: Late Nite Labs CONTRAST TYPE AND DOSE: contrast/concentration: Isovue 350.00 mg/ml; Total Contrast Delivered: 64.0 ml; Total Saline Delivered: 65.0 ml RENAL FUNCTION: BUN 12 creatinine 0.89. RADIATION DOSE: CT Rad equipment meets quality standard of care and radiation dose reduction techniq ues were employed. CTDIvol: 4.8 - 5.1 mGy. DLP: 508 mGy-cm.. LIMITATIONS: None. FINDINGS: LOWER CHEST: No significant findings. No nodules or infiltrates. LIVER: Normal size. No masses. No dilated ducts. SPLEEN: Normal size. No focal lesions. PANCREAS: No masses. No significant calcifications. No adjacent inflammation or peripancreatic fluid collections. Pancreatic duct not dilated. GALLBLADDER: No identified stones by CT criteria. No inflammatory changes to suggest cholecystitis. ADRENAL GLANDS: No significant masses or asymmetry. RIGHT KIDNEY AND URETER: No solid masses. No significant calcifications. No hydronephrosis or hyd roureter. LEFT KIDNEY AND URETER: No solid masses. No significant calcifications. No hydronephrosis or hydr oureter. AORTA AND VESSELS: No aneurysm. No dissection. Renal arteries, SMA, celiac without stenosis. RETROPERITONEUM: No retroperitoneal adenopathy, hemorrhage or masses. BOWEL AND PERITONEAL CAVITY: No masses or inflammatory changes. No free fluid or peritoneal masses. APPENDIX: Normal. PELVIS: No mass. No free fluid. Normal bladder. ABDOMINAL WALL: No masses. No hernias. BONES: No significant or acute findings. OTHER: No other significant finding. IMPRESSION: NO SIGNIFICANT OR ACUTE FINDING IN THE ABDOMEN OR PELVIS ON CT SCAN WITH IV CONTRAST. TECHNICAL DOCUMENTATION: JOB ID: [id number] Quality ID # [id number]: Final reports with documentation of one or more dose reduction techniques (e.g., Au tomated exposure control, adjustment of the mA and/or kV according to patient size, use of iterative reconstruction technique) 2010 [employer]- All Rights Reserved Reading location - IP/workstation name: [email or web address]
[2019-01-21 11:07] VITALS: BP 102/66
== END 2019-01-21 11:08 | disposition home or self-care (01) ==
LOC: ER 01:21
DX: R11.2 Nausea with vomiting, unspecified (principal); R19.7 Diarrhea, unspecified; R10.84 Generalized abdominal pain; Z87.19 Personal history of other diseases of the digestive system
CPT/HCPCS: 96376; 99284; 96361; 96374; 96375; 36415; 83605; 85025; 80053; 81001; 74022; 74177; J1200; J3010; J2765; J1170; J2405; J7030

== ENCOUNTER → 2019-01-25 | Outpatient (CLI) | payer BC, OTHER ==
--- NOTE | 2019-01-25 12:31 | RADIOLOGY REPORT (SQ) ---
EXAM DESCRIPTION: BARIUM ENEMA W/AIR COMPLETED DATE/TIME: 01/25/2019 11:51 am REASON FOR STUDY: IMCOMPLETE COLONSCOPY COMPARISON: CT abdomen pelvis 12/04/2018, 11/28/2018, 12/12/2018, 01/21/2019 Small bowel series [id number] Abdominal films 01/21/2019, 12/05/2018 FLUOROSCOPY TIME: 4.1 minutes 19 digital fluoroscopic images saved to PACS. TECHNIQUE: Following retrograde filling of the colon with barium and air, fluoroscopic spot and over head imaging of the colon was obtained and saved to PACS. LIMITATIONS: None. FINDINGS: Lead Electrical Engineer film demonstrates a normal bowel gas pattern. Surgical clips right lower quadrant. Bony structures unremarkable. Retrograde filling of the colon with barium and air was performed. On the fluoroscopic images of the rectosigmoid, two filling defects are present along the posterior wall of the distal sigmoid colon a t about the level of the coccyx. These appear to be submucosal, about 2 cm in diameter. These may r epresent endometriosis deposits. Remainder of the colon is otherwise unremarkable aside from a small amount of retained fecal material . No annular constricting lesions or polypoid masses. Good clearance of barium and air from the col on on the post evacuation images. Small amount of contrast refluxing into the distal ileum, normal i n appearance. IMPRESSION: Submucosal nodules are suspected along the posterior wall of the sigmoid colon, each aysha suring about 2 cm in diameter. These may represent endometriosis deposits. COMMENT: Quality ID 145: Final reports for procedures using fluoroscopy that document radiation exp osure indices, or exposure time and number of fluorographic images (if radiation exposure indices are not available) TECHNICAL DOCUMENTATION: JOB ID: [id number] [employer]- All Rights Reserved Reading location - IP/workstation name: [email or web address]
== END ==
LOC: RAD 10:12
PROVIDERS: ATTEND Internal Medicine Gastroenterology
DX: K59.01 Slow transit constipation (principal)
CPT/HCPCS: 74280

== ENCOUNTER 2019-02-14 03:34 | Emergency (ER) | payer BC ==
[2019-02-14 03:51] VITALS: BP 118/71
== END 2019-02-14 06:30 | disposition left against medical advice (07) ==
LOC: ER 03:34
DX: Z53.21 Procedure and treatment not carried out due to patient leaving prior to being seen by health care provider (principal)

== ENCOUNTER 2019-02-21 01:54 | Emergency (ER) | payer BC ==
[2019-02-21] MEDS ORDERED: ACETAMINOPHEN 325 MG TABLET PO ONE (06:12)
[2019-02-21] MEDS ORDERED: ONDANSETRON 4 MG TAB.RAPDIS PO ONE (08:18)
[2019-02-21] MEDS ORDERED: ONDANSETRON ODT 4 MG TAB (6 TAB/ER DISP) PO PRN (08:18)
[2019-02-21] MEDS ORDERED: KETOROLAC TROMETHAMINE 60 MG/2 ML SDV IM ONE (08:18)
--- NOTE | 2019-02-21 08:26 | ER Document Report ---
ED General - General Chief Complaint: Insect Bite Stated Complaint: BUG BITE ON LEFT LEG Time Seen by Provider: 02/21/19 08:05 Notes: 33-year-old female presents with possible spider bite to her left lower leg for the past few days. Patient states it started out small on is gotten progressively worse over the past day or so. Patient has mild drainage from the area. Patient denies any fever. Patient states she is also having some nausea. Patient denies any vomiting. Patient denies any history of HIV or diabetes. TRAVEL OUTSIDE OF THE [place] IN LAST 30 DAYS: No - Related Data Allergies/Adverse Reactions: cinnamon Allergy (Verified 02/14/19 04:28) Home Medications: estrogen qday. motrin prn Past Medical History - Social History Smoking Status: Current Every Day Smoker Family History: CVA, DM, Hyperlipidemia, Hypertension Patient has suicidal ideation: No Patient has homicidal ideation: No Renal/ Medical History: Denies: Hx Ovarian Cysts, Hx Peritoneal Dialysis, Hx Pelvic Inflammatory Disease Malignancy Medical History: Denies: Hx Breast Cancer, Hx Cervical Cancer, Hx Leukemia, Hx Ovarian Cancer Psychiatric Medical History: Reports: Hx Anxiety Infectious Medical History: Denies: Hx HIV Past Surgical History: Reports: Hx Abdominal Surgery - Bowel Obstruction, Hx Bowel Surgery - BOWEL RESECTION, Hx Gynecologic Surgery - Removal of right ovary and a tumor in 2009., Hx Hysterectomy, Other - No previous laparotomies for ovarian cyst endometriosis or small bowel obst. Denies: Hx Appendectomy, Hx Section, Hx Cholecystectomy, Hx Coronary Artery Bypass Graft, Hx Gastric Bypass Surgery, Hx Herniorrhaphy, Hx Mastectomy, Hx Pacemaker, Hx Tonsillectomy, Hx Tubal Ligation - Immunizations Hx Diphtheria, Pertussis, Tetanus Vaccination: Yes Review of Systems - Review of Systems Notes: Constitutional: Negative for fever. HENT: Negative for sore throat. Eyes: Negative for visual changes. Cardiovascular: Negative for chest pain. Respiratory: Negative for shortness of breath. Gastrointestinal: Negative for abdominal pain, vomiting or diarrhea. Genitourinary: Negative for dysuria. Musculoskeletal: Negative for back pain. Skin: Positive for possible spider bite. Negative for rash. Neurological: Negative for headaches, weakness or numbness. 10 point ROS negative except as marked above and in HPI. Physical Exam - Vital signs Vitals: Temp Pulse Resp BP Pulse Ox 97.6 F 77 16 122/79 100 02/21/19 02:13 02/21/19 02:13 02/21/19 02:13 02/21/19 02:13 02/21/19 02:13 - Notes Notes: GENERAL: Well-appearing, well-nourished and in no acute distress. HEAD: Atraumatic, normocephalic. EYES: Extraocular movements intact, sclera anicteric, conjunctiva are normal. NECK: Normal range of motion, supple without lymphadenopathy or JVD. EXTREMITIES: Normal range of motion, no pitting or edema. No clubbing or cyanosis. NEUROLOGICAL: Cranial nerves II through XII grossly intact. Normal speech, normal gait. PSYCH: Normal mood, normal affect. SKIN: 2 areas of erythema noted to left lower leg. Area that is anterior is approximately 4 cm with erythema mild yellow drainage. Area that is lateral is approximately 2 cm with erythema. No fluctuance to either area. Warm, Dry, normal turgor, no rashes or lesions noted. Course - Re-evaluation Re-evalutation: 02/21/19 Nontoxic, well-appearing. Afebrile. Area consistent with small areas of cellulitis. Patient to be given Keflex and bacitracin placed. Strict return precautions given. Patient given close follow-up with PCP. Patient voices understanding and agrees with plan of care. - Vital Signs Vital signs: Temp Pulse Resp BP Pulse Ox 97.6 F 81 16 131/86 H 100 02/21/19 06:09 02/21/19 06:09 02/21/19 02:13 02/21/19 06:09 02/21/19 06:09 Discharge - Discharge Clinical Impression: Cellulitis Qualifiers: Site of cellulitis: extremity Site of cellulitis of extremity: lower extremity Laterality: left Qualified Code(s): L03.116 - Cellulitis of left lower limb Condition: Stable Disposition: HOME, SELF-CARE Instructions: Cellulitis ([facility]) Additional Instructions: Please place bacitracin on wound as discussed. Please take Keflex as prescribed and finish all doses even if you feel better. Please use warm compresses as discussed. Please watch for signs of infection which include increasing redness, increasing swelling, pus drainage, fevers, area being hotter to touch than the surrounding skin. Return immediately to ER if you start having any worsening symptoms, including signs of infection, fever, vomiting, increased pain, or any other symptoms that are concerning to you. Prescriptions: Cephalexin Monohydrate [Keflex 500 mg Capsule] 500 mg PO Q6H 7 Days #28 capsule Ibuprofen [Motrin 800 mg Tablet] 800 mg PO Q8H PRN #30 tab PRN Reason: Referrals: DENTON GONZALEZ MD [ACTIVE STAFF] - Follow up in 3-5 days
[2019-02-21 09:10] VITALS: BP 123/82
== END 2019-02-21 09:12 | disposition home or self-care (01) ==
LOC: ER 01:54
DX: L03.116 Cellulitis of left lower limb (principal); F17.200 Nicotine dependence, unspecified, uncomplicated
CPT/HCPCS: 99281; 96372; J1885; S0119